=== PATIENT | female | born 1980 | race Caucasian/White ===

== ENCOUNTER 2020-11-03 13:20 | Emergency (ER) | payer OTHER ==
--- OUTSIDE RECORDS SUMMARY | 2020-11-03 13:29 | XMS REPORT | Continuity of Care Document ---
:1980 Author Organization [facility] t Address [address] [place] [address] Care Team Providers Name Role Phone Lab, Fam Pob I Attending Clinician Unavailable Doctor Unassigned, Name Attending Clinician Unavailable Winsome PEREZ, Duke Attending Clinician Unavailable Gabino PARK Attending Clinician Sohail PARK Attending Clinician Sohail PARK Admitting Clinician Problems This patient has no known problems. Allergies, Adverse Reactions, Alerts This patient has no known allergies or adverse reactions. Medications This patient has no known medications. Procedures This patient has no known procedures. Encounters Start End Encounter Admission Attending Care Care Encounter Source Date/Time Date/Time Type Type Clinicians Facility Department ID 2020-08-04 2020-08-04 Laboratory Lab, [facility] [id number] 17:18:59 17:38:59 Only Fam Pob I Health [id number] [place] [id number] Professio [phone] nal [address] 2020-02-15 2020-02-15 Laboratory Lab, [facility] [id number] 07:11:27 07:31:27 Only Fam Pob I Health [id number] [place] [id number] Professio [phone] nal [address] 2020-02-15 2020-02-15 Letter Doctor SANCHEZ [id number] 00:00:00 00:00:00 (Out) Unassigned, MARCOS [id number] [place] [facility] [id number] 2020-01-25 2020-01-25 Transition Daniel Schumacher [id number] 00:00:00 00:00:00 of Care [place] [id number] [place] [id number] 2020-01-21 2020-01-24 [facility] Nicko Lloyd [facility] [id number] 09:35:33 17:39:00 Encounter Melo Sauceda [id number] [place] [id number] [place] [id number] 2020-01-21 2020-01-21 Orders Doctor DANIEL [id number] 00:00:00 00:00:00 Only UnassignedMARCOS [id number] [place] [facility] [id number] Results This patient has no known results.
[2020-11-03] MEDS ORDERED: PROMETHAZINE INJ 25 MG/ML AMP ONE ×3 (16:57→19:55)
[2020-11-03] MEDS ORDERED: NA CHLORIDE 0.9% 1,000 ML ONE (16:59)
[2020-11-03] MEDS ORDERED: MORPHINE 4 MG/ML SYR ONE ×2 (16:59→17:57)
[2020-11-03 17:07] LABS: Urine Blood Negative (Negative); Urine Glucose Negative (Negative); Urine Protein Negative (Negative); Urine Specific Gravity 1.025 (1.005-1.030); Urine pH 5.5 (5.0-7.0)
[2020-11-03 17:25] LABS: Absolute Lymphocytes (CBC) 2.1 K/uL (0.7-4.9); Basophils % 1.1 % (0-1.3); Hematocrit 38.9 % (36.0-45.0); MPV 8.9 fL (7.6-11.3); RBC Red Blood Cell Count 4.47 M/uL (3.86-4.86)
--- NOTE | 2020-11-03 17:30 | RAD REPORT ---
EXAM DESCRIPTION: CTAbdomen Pelvis W Contrast - 11/03/2020 5:15 pm CLINICAL HISTORY: Abdominal pain. ABD PAIN COMPARISON: No comparisons TECHNIQUE: Biphasic CT imaging of the abdomen and pelvis was performed with 100 ml non-ionic IV cont rast. All CT scans are performed using dose optimization technique as appropriate and may include automated exposure control or mA/KV adjustment according to patient size. FINDINGS: Calcified granuloma is present in the medial left lung base.Postsurgical changes are prese nt about the stomach. The liver, spleen, pancreas, adrenal glands and kidneys are within normal limits. Cholecystectomy cli ps. No bowel obstruction, free air, free fluid or abscess. The appendix is normal. No evidence of signi ficant lymphadenopathy. No suspicious bony findings. IUD is present in the uterus. IMPRESSION: No acute intra-abdominal or pelvic finding.
[2020-11-03 17:35] LABS: Urine Bacteria <20 /HPF (<20); Urine Mucus 1+ /HPF (NONE SEEN); Urine RBC <5 /HPF (NONE SEEN)
[2020-11-03 17:41] LABS: ALT/SGPT 16 U/L (12-78); AST/SGOT 15 U/L (15-37); Albumin 3.5 g/dL (3.4-5.0); Alkaline Phosphatase 81 U/L (45-117); BUN Blood Urea Nitrogen 9 mg/dL (7-18); Bicarbonate 27 mmol/L (21-32); Bilirubin Direct < 0.1 mg/dL (0-0.2); Bilirubin Total 0.2 mg/dL (0.2-1.0); Glucose Level 89 mg/dL (74-106); Lipase 68 U/L (73-393); Potassium 3.9 mmol/L (3.5-5.1); Protein, Total 6.9 g/dL (6.4-8.2); Sodium Level 141 mmol/L (136-145)
[2020-11-03 18:14] LABS: SARS-COV-2 RT PCR NEGATIVE (NEGATIVE)
[2020-11-03] MEDS ORDERED: CEFTRIAXONE/SWI 1gm 1 GM/10 ML SYR ONE (18:27)
--- NOTE | 2020-11-03 19:09 | EDPHYS ---
Physician Documentation [facility] Name: Stacey Frederick Age: 40 yrs Sex: Female : 1980 Arrival Date: 11/03/2020 Time: 13:24 Bed 13 Private MD: ED Physician Mundo Palmer HPI: 11/03 18:20 This 40 yrs old Female presents to ER via Ambulatory with complaints of pm1 Abdominal Pain, Vomiting. 18:20 The patient presents with abdominal pain. Onset: The symptoms/episode began/occurred pm1 today. The symptoms do not radiate. Associated signs and symptoms: Pertinent positives: nausea, vomiting, and diarrhea. The symptoms are described as crampy. Modifying factors: The symptoms are alleviated by nothing, the symptoms are aggravated by nothing. Severity of pain: in the emergency department the pain is actually worse. Historical: - Allergies: 13:38 Bactrim; ll1 - PMHx: 13:38 Hypertension; ll1 - PSHx: 13:38 gastric sleeve-2016. Ankle FX; Cholecystectomy; ll1 - Immunization history:: Flu vaccine is not up to date. - Social history:: Smoking status: Patient denies any tobacco usage or history of. Smoking status: Reported history of juuling and/or vaping. ROS: 18:20 Constitutional: Negative for fever, chills, and weight loss, Cardiovascular: Negative pm1 for chest pain, palpitations, and edema, Respiratory: Negative for shortness of breath, cough, wheezing, and pleuritic chest pain. 18:20 Back: Negative for injury and pain, MS/Extremity: Negative for injury and deformity, Skin: Negative for injury, rash, and discoloration, Neuro: Negative for headache, weakness, numbness, tingling, and seizure. 18:20 Abdomen/GI: Positive for abdominal pain, nausea, vomiting, and diarrhea. 18:20 : Positive for burning with urination. Exam: 18:20 Constitutional: This is a well developed, well nourished patient who is awake, alert, pm1 and in no acute distress. Head/Face: Normocephalic, atraumatic. Cardiovascular: Regular rate and rhythm with a normal S1 and S2. No gallops, murmurs, or rubs. Normal PMI, no JVD. No pulse deficits. Respiratory: Lungs have equal breath sounds bilaterally, clear to auscultation and percussion. No rales, rhonchi or wheezes noted. No increased work of breathing, no retractions or nasal flaring. 18:20 Back: No spinal tenderness. No costovertebral tenderness. Full range of motion. Skin: Warm, dry with normal turgor. Normal color with no rashes, no lesions, and no evidence of cellulitis. MS/ Extremity: Pulses equal, no cyanosis. Neurovascular intact. Full, normal range of motion. 18:20 Abdomen/GI: Inspection: obese Palpation: soft, in all quadrants, mild abdominal tenderness, in the right upper quadrant. 18:20 Neuro: Exam negative for acute changes, Orientation: is normal, Mentation: is normal, Motor: is normal, moves all fours. Vital Signs: 13:34 BP 124 / 90; Pulse 86; Resp 18; Temp 98.8; Pulse Ox 96% ; Weight 108.86 kg; Height 5 ll1 ft. 7 in. (170.18 cm); Pain 8/10; 16:00 BP 122 / 69; Pulse 69; Resp 16; Pulse Ox 99% ; sv 17:33 BP 115 / 70; Pulse 68; Resp 16; Pulse Ox 100% ; sv 18:24 BP 113 / 70; Pulse 62; Resp 16; Pulse Ox 100% ; sv 13:34 Body Mass Index 37.59 (108.86 kg, 170.18 cm) ll1 MDM: 16:06 Patient medically screened. pm1 19:07 Data reviewed: vital signs. Data interpreted: Pulse oximetry: on room air is 100 %. pm1 Interpretation: normal. 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 19:31 ED course: Patient requesting pain medication before she goes home. Offered PO but she pm1 wants to get IVP. Instructed patient to follow up with GI. 11/03 16:19 Order name: Basic Metabolic Panel pm1 11/03 16:19 Order name: CBC with Diff pm1 11/03 16:19 Order name: Hepatic Function pm11/03 16:19 Order name: Lipase pm11/03 16:19 Order name: Urine Microscopic Only pm11/03 16:19 Order name: Flu pm11/03 16:19 Order name: COVID-19 : Document "Date of Symptom Onset" if Symptomatic. pm11/03 16:19 Order name: Basic Metabolic Panel; Complete Time: 17:42 EDMS 11/03 16:20 Order name: CBC with Automated Diff; Complete Time: 17:38 EDMS 11/03 16:20 Order name: Liver (Hepatic) Function; Complete Time: 17:42 EDMS 11/03 16:20 Order name: Lipase; Complete Time: 17:42 EDMS 11/03 16:20 Order name: Urine Microscopic Only; Complete Time: 17:38 EDMS 11/03 16:19 Order name: IV Saline Lock; Complete Time: 17:09 pm1 11/03 16:19 Order name: Labs collected and sent; Complete Time: 17:09 pm1 11/03 16:19 Order name: Urine Dipstick-Ancillary (obtain specimen); Complete Time: 17:09 pm1 11/03 16:19 Order name: CT Abd/Pelvis - IV Contrast Only; Complete Time: 17:38 pm1 11/03 17:08 Order name: Urine Dipstick-Ancillary; Complete Time: 17:38 EDMS 11/03 17:08 Order name: Urine --Ancillary (enter results) 11/03 17:36 Order name: Urine Culture EDSC 11/03 18:14 Order name: COVID-19/FLU A+B; Complete Time: 18:22 EDMS 11/03 16:19 Order name: Urine Test (obtain specimen); Complete Time: 17:09 pm1 Administered Medications: 16:50 Drug: Phenergan 12.5 mg Route: IVP; Site: left forearm; sv 17:45 Follow up: Response: No adverse reaction; No change in condition sv 16:50 Drug: NS 0.9% 1000 ml Route: IV; Rate: 1000 ml; Site: left forearm; sv 17:43 Follow up: Response: No adverse reaction; IV Status: Completed infusion; IV Intake: sv 1000ml 16:52 Drug: morphine 4 mg {Note: rass1.} Route: IVP; Site: left forearm; sv 17:43 Follow up: Response: No adverse reaction; No change in condition; Pain is unchanged, sv physician notified; RASS: Restless (+1) 17:43 Drug: Phenergan 12.5 mg Route: IVP; Site: left forearm; sv 18:14 Follow up: Response: No adverse reaction; No change in condition sv 17:45 Drug: morphine 4 mg {Note: rass1.} Route: IVP; Site: left forearm; sv 18:14 Follow up: Response: No adverse reaction; Pain is unchanged, physician notified; RASS: sv Restless (+1) 18:14 Drug: Rocephin (cefTRIAXone) 1 grams Route: IV; Rate: calculated rate; Site: left sv forearm; 18:16 Follow up: Response: No adverse reaction; IV Status: Completed infusion; IV Intake: 10mlsv 19:39 Drug: morphine 2 mg Route: IVP; Site: left forearm; sf 19:57 Follow up: Response: No adverse reaction sf 19:39 Drug: Phenergan 12.5 mg Route: IVP; Site: left forearm; sf 19:57 Follow up: Response: No adverse reaction Disposition: 11/04 08:21 Co-signature as Attending Physician, Mundo Palmer MD. rn Disposition: 11/03/20 19:08 Discharged to Home. Impression: Unspecified abdominal pain, Vomiting, Urinary tract infection, site not specified. - Condition is Stable. - Discharge Instructions: Abdominal Pain, Adult, Nausea and Vomiting, Adult, Urinary Tract Infection, Adult. - Prescriptions for Phenergan 25 mg Rectal Suppository - insert 1 suppository by RECTAL route every 6 hours As needed; 12 suppository. Tramadol 50 mg Oral Tablet - take 1 tablet by ORAL route every 8 hours as needed; 12 tablet. promethazine 25 mg Oral Tablet - take 1 tablet by ORAL route every 6 hours As needed; 20 tablet. - Work release form, Medication Reconciliation Form, Thank You Letter, Antibiotic Education, Prescription Opioid Use form. - Follow up: Emergency Department; When: As needed; Reason: Worsening of condition. Follow up: Private Physician; When: 2 - 3 days; Reason: Recheck today's complaints, Continuance of care, Re-evaluation by your physician. - Problem is new. - Symptoms have improved. Signatures: Dispatcher [employer] EDMS Lali Pearson RN RN Mundo Sultana MD MD rn Marinas, Patrick, SUE EXHAUST AND MUFFLER FITTER pm1 Faith Ramirez RN RN ll1 Gabriel Mckee RN RN sf Corrections: (The following items were deleted from the chart) 04 17:28 16:20 CORONAVIRUS ordered. [facility] EDSC 17:36 16:20 Influenza Screen (A ordered. [facility] EDSC 20:03 19:08 11/03/2020 19:08 Discharged to Home. Impression: Unspecified abdominal pain; sf Vomiting; Urinary tract infection, site not specified. Condition is Stable. Forms are Medication Reconciliation Form, Thank You Letter, Antibiotic Education, Prescription Opioid Use. Follow up: Emergency Department; When: As needed; Reason: Worsening of condition. Follow up: Private Physician; When: 2 - 3 days; Reason: Recheck today's complaints, Continuance of care, Re-evaluation by your physician. Problem is new. Symptoms have improved. pm1
--- NOTE | 2020-11-03 19:09 | ER ---
Nurse's Notes [facility] Name: Stacey Frederick Age: 40 yrs Sex: Female : 1980 Arrival Date: 11/03/2020 Time: 13:24 Bed 13 Private MD: Diagnosis: Unspecified abdominal pain;Vomiting;Urinary tract infection, site not specified Presentation: 11/03 13:34 Chief complaint: Patient states: Diffuse abd pain for 2 weeks, pain is worse for 2 ll1 days. N/V, and some low grade fever. Coronavirus screen: Client denies travel out of the [place] in the last 14 days. nausea, vomiting. Client presents with at least one sign or symptom that may indicate coronavirus-19. Standard/surgical mask placed on the client. Ebola Screen: Patient denies travel to an Ebola-affected area in the 21 days before illness onset. Initial Sepsis Screen: Does the patient meet any 2 criteria? No. Patient's initial sepsis screen is negative. Does the patient have a suspected source of infection? Yes: Acute abdominal pain. Risk Assessment: Do you want to hurt yourself or someone else? Patient reports no desire to harm self or others. Onset of symptoms was October 19, 2020. 13:34 Method Of Arrival: Ambulatory ll1 13:34 Acuity: ANDREAS 3 ll1 Historical: - Allergies: 13:38 Bactrim; ll1 - PMHx: 13:38 Hypertension; ll1 - PSHx: 13:38 gastric sleeve-2016. Ankle FX; Cholecystectomy; ll1 - Immunization history:: Flu vaccine is not up to date. - Social history:: Smoking status: Patient denies any tobacco usage or history of. Smoking status: Reported history of juuling and/or vaping. Screenin:12 Abuse screen: Denies threats or abuse. Denies injuries from another. Nutritional sv screening: No deficits noted. Tuberculosis screening: No symptoms or risk factors identified. Fall Risk None identified. Assessment: 16:50 General: Appears in no apparent distress. uncomfortable, well groomed, well developed, sv Behavior is calm, cooperative, appropriate for age. Pain: Complains of pain in abdomen Pain currently is 8 out of 10 on a pain scale. Quality of pain is described as crampy, Is continuous. Neuro: Level of Consciousness is awake, alert, obeys commands, Oriented to person, place, time, situation, Moves all extremities. Full function Gait is steady, Speech is normal. Respiratory: Airway is patent Respiratory effort is even, unlabored, Respiratory pattern is regular, symmetrical. GI: Abdomen is flat, Abd is soft X 4 quads Abdomen is tender to palpation X 4 quads. Reports nausea, vomiting. Derm: Skin is intact, Skin is pink, warm \\T\\ dry. Musculoskeletal: Range of motion: intact in all extremities. 17:40 Reassessment: Patient appears in no apparent distress at this time. No changes from sv previously documented assessment. Patient and/or family updated on plan of care and expected duration. Pain level reassessed. Patient is alert, oriented x 3, equal unlabored respirations, skin warm/dry/pink. Informed Mac BIOCHEMISTRY TECHNOLOGIST, medication order received. Patient states symptoms have not improved. 18:14 Reassessment: Patient appears in no apparent distress at this time. No changes from sv previously documented assessment. Patient and/or family updated on plan of care and expected duration. Pain level reassessed. Patient is alert, oriented x 3, equal unlabored respirations, skin warm/dry/pink. Patient states symptoms have not improved. Vital Signs: 13:34 BP 124 / 90; Pulse 86; Resp 18; Temp 98.8; Pulse Ox 96% ; Weight 108.86 kg; Height 5 ll1 ft. 7 in. (170.18 cm); Pain 8/10; 16:00 BP 122 / 69; Pulse 69; Resp 16; Pulse Ox 99% ; sv 17:33 BP 115 / 70; Pulse 68; Resp 16; Pulse Ox 100% ; sv 18:24 BP 113 / 70; Pulse 62; Resp 16; Pulse Ox 100% ; sv 13:34 Body Mass Index 37.59 (108.86 kg, 170.18 cm) ll1 ED Course: 13:24 Patient arrived in ED. mr 13:37 Triage completed. ll1 13:39 Arm band placed on Patient notified of wait time. ll1 16:05 Mac Mcrae NP is PHCP. pm1 16:05 Mundo Palmer MD is Attending Physician. pm1 16:12 Lali Pearson, ANA is Primary Nurse. sv 16:12 Patient has correct armband on for positive identification. Bed in low position. Call sv light in reach. Pulse ox on. NIBP on. Door closed. Head of bed elevated. 16:50 COVID swab sent to lab. Flu and/or RSV swab sent to lab. Inserted saline lock: 20 gauge sv in left forearm, using aseptic technique. Blood collected. Flushed left forearm with 2 ml normal saline. 17:09 Flu Sent. sv 17:09 COVID-19 : Document "Date of Symptom Onset" if Symptomatic. Sent. sv 17:09 Urine Microscopic Only Sent. sv 17:09 Lipase Sent. sv 17:09 Hepatic Function Sent. sv 17:09 CBC with Diff Sent. sv 17:09 Basic Metabolic Panel Sent. sv 17:15 CT Abd/Pelvis - IV Contrast Only In Process Unspecified. EDMS 19:06 Primary Nurse role handed off by Lali Pearson RN sf 19:06 Gabriel Mckee, ANA is Primary Nurse. sf 19:10 Report given to Gabriel PEREZ. sv 20:02 No provider procedures requiring assistance completed. IV discontinued, intact, sf bleeding controlled, No redness/swelling at site. Pressure dressing applied. Administered Medications: 16:50 Drug: Phenergan 12.5 mg Route: IVP; Site: left forearm; sv 17:45 Follow up: Response: No adverse reaction; No change in condition sv 16:50 Drug: NS 0.9% 1000 ml Route: IV; Rate: 1000 ml; Site: left forearm; sv 17:43 Follow up: Response: No adverse reaction; IV Status: Completed infusion; IV Intake: sv 1000ml 16:52 Drug: morphine 4 mg {Note: rass1.} Route: IVP; Site: left forearm; sv 17:43 Follow up: Response: No adverse reaction; No change in condition; Pain is unchanged, sv physician notified; RASS: Restless (+1) 17:43 Drug: Phenergan 12.5 mg Route: IVP; Site: left forearm; sv 18:14 Follow up: Response: No adverse reaction; No change in condition sv 17:45 Drug: morphine 4 mg {Note: rass1.} Route: IVP; Site: left forearm; sv 18:14 Follow up: Response: No adverse reaction; Pain is unchanged, physician notified; RASS: sv Restless (+1) 18:14 Drug: Rocephin (cefTRIAXone) 1 grams Route: IV; Rate: calculated rate; Site: left sv forearm; 18:16 Follow up: Response: No adverse reaction; IV Status: Completed infusion; IV Intake: 10mlsv 19:39 Drug: morphine 2 mg Route: IVP; Site: left forearm; sf 19:57 Follow up: Response: No adverse reaction sf 19:39 Drug: Phenergan 12.5 mg Route: IVP; Site: left forearm; sf 19:57 Follow up: Response: No adverse reaction sf Intake: 17:43 IV: 1000ml; Total: 1000ml. sv 18:16 IV: 10ml; Total: 1010ml. sv Outcome: 19:08 Discharge ordered by MD. pm1 20:02 Discharged to home ambulatory. sf 20:02 Condition: stable 20:02 Discharge instructions given to patient, Instructed on discharge instructions, follow up and referral plans. medication usage, Demonstrated understanding of instructions, follow-up care, medications, Prescriptions given X 3. 20:03 Patient left the ED. sf Signatures: Dispatcher [employer] EDLali Amos RN RN Deneen Frost Patrick, BIOCHEMISTRY TECHNOLOGIST BIOCHEMISTRY TECHNOLOGIST pm1 Faith Ramirez RN RN ll1 Gabriel Mckee RN RN sf
[2020-11-03 19:49] LABS: Urine Specific Gravity/Preg 1.025 (1.005-1.030)
[2020-11-03] MEDS ORDERED: MORPHINE 2 MG/ML SYR ONE (19:55)
[2020-11-03 20:37] VITALS: TEMP 98.8
[2020-11-03 20:39] VITALS: O2SAT 100
[2020-11-03 20:41] VITALS: BP 113/70
== END 2020-11-03 20:03 | disposition home or self-care (01) ==
LOC: ER 13:20
DX: N39.0 Urinary tract infection, site not specified (principal); Z20.822 Contact with and (suspected) exposure to COVID-19; Z98.84 Bariatric surgery status; F17.290 Nicotine dependence, other tobacco product, uncomplicated; I10 Essential (primary) hypertension
CPT/HCPCS: 96361; 87088; 85025; 87086; 80048; 36415; 81025; 82565; 80076; 83690; 0240U; 74177; 96375; 96374; 99284; Q9967; J2550 ×3; J2270; J0696; J7030; 81003; 81015

== ENCOUNTER 2023-03-18 11:38 | Emergency (ER) | payer OTHER ==
--- OUTSIDE RECORDS SUMMARY | 2023-03-18 11:48 | XMS REPORT | Continuity of Care Document ---
:1980 Author Organization [facility] t Address [address] [place] [address] [address] [place] [address] Care Team Providers Name Role Phone YAW NEALAN Primary Care Physician Unavailable GERALDO MEREDITH Attending Clinician Unavailable CLINT Attending Clinician Unavailable Nicole West MA Attending Clinician Unavailable Huber PARK, Finn Gaffney Attending Clinician Bob Asher MD Attending Clinician Parker CAP INSPECTOR, Claudia Attending Clinician Pj Rendon MD Attending Clinician Deena Hernandez RN Attending Clinician Unavailable Only, Ang Db Test Attending Clinician Unavailable Renny Newman Attending Clinician RENNY BOYCE Attending Clinician Unavailable RUDDY CHO Attending Clinician Unavailable JHON PICKERING Attending Clinician Unavailable Jhon Pickering DO Attending Clinician Erin Barroso RN Attending Clinician Unavailable Maxwell TRIPP Attending Clinician Unavailable Maxwell Gupta Attending Clinician JON PEOPLES Attending Clinician Unavailable Talon CAP INSPECTORJon Lizama Attending Clinician Unknown, Attending Attending Clinician Unavailable UNKNOWN, ATTENDING Attending Clinician Unavailable Stacey Reveles MD Attending Clinician Geraldo Meredith MD Attending Clinician Only, Adc Test Attending Clinician Unavailable Nicko Lloyd MD Attending Clinician VANESSA RAYO Attending Clinician Unavailable Pob, Adc Lab Main Attending Clinician Unavailable Vanessa Rayo MD Attending Clinician Doctor Unassigned, [place] Attending Clinician Unavailable FRANCESCO DICK Attending Clinician Unavailable Sharri Sanchez DO Attending Clinician Lab, Adc Fam Pob I Attending Clinician Unavailable Winsome PEREZ, Vega Wall Attending Clinician Unavailable Sohail PARK, Melo Attending Clinician MELO SAUCEDA Attending Clinician Unavailable GERALDO MEREDITH Admitting Clinician Unavailable CLINT Admitting Clinician Unavailable FINN NGO Admitting Clinician Unavailable RUDDY CHO Admitting Clinician Unavailable SUE MONIQUE Admitting Clinician Unavailable JHON PICKERING Admitting Clinician Unavailable Geraldo Meredith MD Admitting Clinician Melo Sauceda MD Admitting Clinician MELO SAUCEDA Admitting Clinician Unavailable Payers Payer Name Policy Type Policy Number Effective Date Expiration Date S josias [facility] [id number] 2020 PPO 00:00:00 [facility] [id number] [facility] [id number] 2016 00:00:00 Problems Condition Condition Condition Status Onset Resolution Last Treating Co mments Source Name Details Category Date Date Treatment Clinician Date Acute Acute Problem Active [place] sinusitis Sinusitis 8-16 Comm uni 00:00: Hospita Clinics Acute Acute Problem Active [place] maxillary Maxillary 8-16 Comm uni sinusitis Sinusitis 00:00: [facility] Headache Headache Problem Active [place] 8-16 Communi 00:00: [facility] Nausea Nausea Problem Active [place] 8-16 Communi 00:00: Hospita l Clinics Morbid Morbid Disease Active 2021-08 [facility] obesity obesity 0-21 st 00:00: Hospita 00 l Gastroesop Gastroesop Disease Active 2021-08 M ethodi hageal hageal 0-21 st reflux reflux 00:00: Hospita disease, disease, 00 l unspecifie unspecifie d whether d whether esophagiti esophagiti s present s present Gastroesop Gastroesop Disease Active Overview : Methodi hageal hageal [address] reflux reflux 00:00: g of this Hospita disease disease 00 note l might be different from the original. Added automatic ally from request for surgery [id number] History of History of Disease Active Overview : [facility]i sleeve sleeve 04-[address] gastrectom gastrectom 00:00: g of this Hospita y y 00 note l might be different from the original. 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 00:00: Hospit a on left on left 00 l Bilateral Bilateral Disease Active Met hodi rotator rotator 4 st cuff cuff 00:00: Hospita syndrome syndrome 00 l Elbow Elbow Disease Active [facility] mass, left mass, left 4 st 00:00: Hospita 00 l Undifferen Undifferen Disease Active U nivers tiated tiated 6- [place] abdominal abdominal [place] pain 00 [facility] [place] Obesity Obesity Disease Active Univers (BMI (BMI 6-22 ity of 30-39.9) 30-39.9) 00:00: Medical Branch Allergies, Adverse Reactions, Alerts Allergy Allergy Status Severity Reaction(s) Onset Inactive Treating Comm ents Source Name Type Date Date Clinician Morphine Propensi Active GI SEVERE Method i ty to Intolerance 6- N/V st adverse 00:00: Hospita reaction 00 l s to drug MORPHINE DRUG Active N/V Univers INGREDI 6- ity of 00:00: Medical Branch Morphine Propensi Active Nausea Univer s ty to and/or 6 ity of adverse Vomiting 00:00: [place] reaction 00 Medical s Branch Sulfa Propensi Active Other (See 2019-0 Mouth Meth sheba (Sulfona ty to Comments) 2-12 sores/bli st mide adverse 00:00: [facility] Hospita Antibiot reaction 00 l ics) s to drug SULFA Drug Active Rash 2018- Univers (SULFONA Class 2-12 ity of MIDE 00:00: [place] ANTIBIOT 00 Medical ICS) Branch Sulfa Propensi Active Rash 2018- Univers (Sulfona ty to 2-12 ity of mide adverse 00:00: [place] Antibiot reaction 00 Medica l ics) s Branch Sulfa Propensi Active Rash 2018- Univers (Sulfona ty to 2-12 ity of mide adverse 00:00: [place] Antibiot reaction 00 Medica l ics) s Branch Clarithr Propensi Active Other (See 2008- blisters Methodi omycin ty to Comments) 7-[address] adverse 00:00: mouth Hospita reaction 00 l s to drug SULFA Allergy Active [place] (SULFONA to Communi MIDE substanc ty ANTIBIOT e Hospita ICS) l Clinics Family History Family Member Diagnosis Comments Start Date Stop Date Source Natural father Heart attack [facility] Natural father Heart disease [facility] Maternal grandmother Pancreatic cancer [facility] Natural mother Alcohol abuse [facility] mother Arthritis [facility] mother COPD [facility] mother Cervical cancer [facility] Natural mother Depression [facility] Natural mother Hyperlipidemia [facility] Natural mother Hypotension [facility] Social History Social Habit Start Date Stop Date Quantity Comments Source Gender identity 2020-12-04 Identifies as Method ist 11:29:29 female gender Hospital (finding) Sexual orientation 2020-12-04 Heterosexual Meth odist 11:29:29 (finding) Hospital History of tobacco Smokes tobacco [facility] use daily Hospital Alcohol intake 2022-05-24 2022-05-24 Ex-drinker [facility] 00:00:00 00:00:00 (finding) Hospital History of Social 2022-05-24 2022-05-[address] function 00:00:00 00:00:00 Hospital Tobacco use and 2022-05-13 2022-05-13 Smokeless tobacco Me thodist exposure 00:00:00 00:00:00 non-user Hospital Alcohol Comment 2022-05-13 2022-05-13 I drink on the [facility]o dist 00:00:00 00:00:00 weekends 12 drinks Hospit al Tobacco Comment 2022-04-21 2022-04-21 Smoke cigarettes Met luciana 00:00:00 00:00:00 for 10 years- /2 Hospita l pack per day Exposure to 2022-02-06 2022-02-16 [facility] 11:35:00 [facility] Sex Assigned At [birth year] Univers y of 00:00:00 00:00:00 [facility] Smoking Status Start Date Stop Date Source Unknown if ever smoked [facility] Former Smoker [facility] Smokes tobacco daily 2022-05-13 00:00:00 [facility] Medications Ordered Filled Start Stop Current Ordering Indication Dosage Frequency Signature Comments Components Source Medication Medication Date Date Medication? Clinician (SIG) Name Name ketorolac ketorolac No ketorolac [place] 30 mg/mL (1 30 mg/mL (1 8-16 30 mg/mL Communi mL) mL) 11:12: (1 mL) ty injection injection 00 injection Hospita solutionInj solutionInj solutionIn l ect 1 mL by ect 1 mL by ject 1 mL Clinics intramuscul intramuscul by ar route. ar route. intramuscu lar route. triamcinolo triamcinolo No triamcinol [place] ne ne 6-20 one Communi acetonide acetonide 11:01: acetonide ty 40 mg/mL 40 mg/mL 26 40 mg/mL Hos harish suspension suspension suspension l for for for Clinics injectionTa injectionTa injectionT ke 40 mg by ke 40 mg by delgado 40 mg injection injection by route. route. injection route. promethazin 2021-08 25mg Q6H Take 25 mg Methodi e 1-17 11-[address] (PHENERGAN) 11:41: 00:00 every 6 Ho spita 25 MG 58 :00 (six) l tablet hours as needed for nausea or vomiting. clonAZEPAM 2021-08 Yes .5mg QD Take 0.5 Met ángeli (KlonoPIN) 1-[address] 0.5 MG 11:09: mouth Hospita tablet 08 nightly as l needed (insomnia) . omeprazole 2021-08 Yes 40mg Q.5D Take 1 Metho di (PriLOSEC) 1-[address] 40 MG 11:09: (40 mg Hospita capsule 08 total) by l mouth 2 (two) times a day. losartan 2021-08 Yes 100mg QD Take 100 Meth sheba (COZAAR) 1-[address] 100 MG 11:09: mouth Hospita tablet 08 daily. l montelukast 2021-08 Yes 10mg QD Take 10 mg Methodi (SINGULAIR) 1-[address] 10 mg 11:09: daily. Hospita tablet 08 l MELATONIN 2021-08 Yes QD Take by Metho di ORAL 1-[address] 11:09: nightly. Hospita 08 Gummy l ondansetron 2021-08- No 8mg Q8H Take 1 Met hodi ODT 1-17 12-08 tablet (8 st (ZOFRAN-ODT 00:00: 05:59 mg total) Hospita ) 8 MG 00 :00 by mouth l disintegrat every 8 ing tablet (eight) hours as needed for nausea or vomiting for up to 20 days. promethazin 2021-08 No 25mg Q6H Take 1 Met hodi e 1-17 12-08 tablet (25 st (PHENERGAN) 00:00: 05:59 mg total) Hospita 25 MG 00 :00 by mouth l tablet every 6 (six) hours as needed for nausea or vomiting for up to 20 days. promethazin 2021-08 Yes 12.5mg Q6H Take 0.5 Methodi e 0-[address] (PHENERGAN) 00:00: (12.5 mg Ho spita 25 MG 00 total) by l tablet mouth every 6 (six) hours as needed for nausea or vomiting for up to 14 doses. simethicone 2021-08 Yes 80mg Q.25D Take 1.2 M ethodi (MYLICON) 0-24 mL ([address] 40 mg/0.6 00:00: total) by Hos harish mL drops 00 mouth 4 l (four) times a day as needed for flatulence . multivitami 2021-08- No 5mL QD Take 5 mL Methodi n liquid 0-24 11-[address] 00:00: 05:59 daily for Hospita 00 :00 30 days. l enoxaparin 2021-08 No 40mg QD Inject 0.4 Methodi (LOVENOX) 0-24 11-08 mL ([address] 40 mg/0.4 00:00: 05:59 total) Hospi ta mL syringe 00 :00 under the l skin daily for 14 days. docusate 2021-08 No 100mg Q.5D Take 1 Metho di sodium 0-24 11-[address] (Colace) 00:00: 05:59 (100 mg Hospi ta 100 MG 00 :00 total) by l capsule mouth 2 (two) times a day for 14 days. methocarbam 2021-08 No 750mg Q.[id number] Take 1 Methodi oL 0-24 11- [id number] tablet st (Robaxin-75 00:00: 04:59 3D (750 mg Ho spita 0) 750 MG 00 :00 total) by l tablet mouth 3 (three) times a day as needed for muscle spasms for up to 7 days. acetaminoph 2021-08 No 500mg Q8H Take 1 Me thodi en (Tylenol 0-24 10-[address] Extra 00:00: 04:59 (500 mg Hospita Strength) 00 :00 total) by l 500 MG mouth tablet every 8 (eight) hours for 5 days. traMADoL 2021-08 No [id number] 50mg Q6H Take 1 Metho di (Ultram) 50 0-24 10-30 tablet (50 s t mg tablet 00:00: 04:59 mg total) Ho spita 00 :00 by mouth l every 6 (six) hours as needed for moderate pain for up to 5 days .acute pain. nut.tx.comp 2021-08 No 1{bottl Q.5D Take 1 Methodi . immune 0-16 10-24 e} Bottle by st syst,reg 00:00: 00:00 mouth 2 Hosp luis (Impact 00 :00 (two) l Advanced times a Recovery) day for 5 0.1 days. gram-1.12 kcal/mL liquid topiramate Yes 25mg QD Take 1 Metho di (TOPAMAX) 9-20 tablet (25 st 25 MG 00:00: mg total) Hospita tablet 00 by mouth l nightly. ondansetron 2021- No 8mg Q8H Take 1 Met hodi ODT 03-17 11-17 tablet (8 st (ZOFRAN-ODT 00:00: 00:00 mg total) Hospita ) 8 MG 00 :00 by mouth l disintegrat every 8 ing tablet (eight) hours as needed. methocarbam 2021- No 500mg Q.[id number] Take 1 Methodi oL 8-17 10-[id number] (ROBAXIN) 00:00: 00:00 3D (500 mg Hosp luis 500 MG 00 :00 total) by l tablet mouth 3 (three) times a day as needed. amitriptyli 0 Yes 50mg QD Take 50 mg Methodi ne (ELAVIL) 5-[address] 50 MG 00:00: nightly. Hospita tablet 00 l naproxen 2021-0 Yes [id number] 550mg Take 1 U nivers sodium 4-11 tablet by ity of (ANAPROX 00:00: mouth 2 [place] DS) 550 mg 00 (two) Medical tablet times Branch daily with meals. methylPREDN 2021-0 Yes [id number] Take by [facility] ISolone 4-11 mouth ity of (MEDROL, 00:00: SEE-INSTRU John as RANDY,) 4 mg 00 CTIONS. Medica l tablets follow Branch package directions naproxen 2021-0 Yes [id number] 550mg Take 1 U nivers sodium 4-11 tablet by ity of (ANAPROX 00:00: mouth 2 [place] DS) 550 mg 00 (two) Medical tablet times Branch daily with meals. methylPREDN 2021-0 Yes [id number] Take by [facility] ISolone 4-11 mouth ity of (MEDROL, 00:00: SEE-INSTRU John as RANDY,) 4 mg 00 CTIONS. Medica l tablets follow Branch package directions naproxen 2021-0 Yes [id number] 550mg Take 1 U nivers sodium 4-11 tablet by ity of (ANAPROX 00:00: mouth 2 [place] DS) 550 mg 00 (two) Medical tablet times Branch daily with meals. methylPREDN 2021-0 Yes [id number] Take by Univers ISolone 4-11 mouth ity of (MEDROL, 00:00: SEE-INSTRU John as RANDY,) 4 mg 00 CTIONS. Medica l tablets follow Branch package directions methocarbam 2021- No [id number] 500mg Take 1 Univers oL 500 mg 11-09-17 tablet by ity of tablet 00:00: 04:59 mouth 3 [place] 00 :00 (three) Medical times Branch daily for 5 days. ibuprofen 0 Yes [id number] 600mg Take 1 Univers 600 mg 2-18 tablet by ity of tablet 00:00: mouth [place] 00 every 6 Medical (six) Branch hours as needed for Pain (scale 4-6). ibuprofen 0 Yes [id number] 600mg Take 1 Univers 600 mg 2-18 tablet by ity of tablet 00:00: mouth [place] 00 every 6 Medical (six) Branch hours as needed for Pain (scale 4-6). ibuprofen 0 Yes [id number] 600mg Take 1 Univers 600 mg 2-18 tablet by ity of tablet 00:00: mouth [place] 00 every 6 Medical (six) Branch hours as needed for Pain (scale 4-6). ibuprofen 0 Yes [id number] 600mg Take 1 Univers 600 mg 2-18 tablet by ity of tablet 00:00: mouth [place] 00 every 6 Medical (six) Branch hours as needed for Pain (scale 4-6). ibuprofen 0 Yes [id number] 600mg Take 1 Univers 600 mg 2-18 tablet by ity of tablet 00:00: mouth [place] 00 every 6 Medical (six) Branch hours as needed for Pain (scale 4-6). promethazin 2021- No [id number] 5mL Take 5 mL Univers e-codeine -18 - by mouth 4 ity of 6.25-10 00:00: 05:59 (four) [place] mg/5 mL 00 :00 times Medical syrup daily as Branch needed for Cough for up to 7 days. Indication s: acute pain, cough promethazin 2021-0 2021- No [id number] 5mL Take 5 mL Univers e-codeine 2-18 - by mouth 4 ity of 6.25-10 00:00: 05:59 (four) [place] mg/5 mL 00 :00 times Medical syrup daily as Branch needed for Cough for up to 7 days. Indication s: acute pain, cough ciprofloxac 2020-08 Yes ciprofloxa Univers in HCl 500 2-30 lou 500 mg ity of mg tablet 12:38: tablet [address] codeine-gua 2020-08 Yes Cheratussi Univers ifenesin 2-30 n AC 10 ity of (CHERATUSSI 12:38: mg-100 [place] N AC) 15 mg/5 mL Medical 10-100 mg/5 oral Branch mL oral liquid solution citalopram 2020-08 Yes citalopram U nivers 40 mg 2-30 40 mg ity of tablet 12:38: tablet [address] methocarbam 2020-08 Yes methocarba Univers oL 750 mg 2-30 mol 750 mg ity of tablet 12:38: tablet [address] predniSONE 2020-08 Yes prednisone U nivers 20 mg 2-30 20 mg ity of tablet 12:38: tablet [address] ciprofloxac 2020-08 Yes ciprofloxa Univers in HCl 500 2-30 lou 500 mg ity of mg tablet 12:38: tablet [address] codeine-gua 2020-08 Yes Cheratussi Univers ifenesin 2-30 n AC 10 ity of (CHERATUSSI 12:38: mg-100 [place] N AC) 15 mg/5 mL Medical 10-100 mg/5 oral Branch mL oral liquid solution citalopram 2020-08 Yes citalopram U nivers 40 mg 2-30 40 mg ity of tablet 12:38: tablet [address] methocarbam 2020-08 Yes methocarba Univers oL 750 mg 2-30 mol 750 mg ity of tablet 12:38: tablet [address] predniSONE 2020-08 Yes prednisone U nivers 20 mg 2-30 20 mg ity of tablet 12:38: tablet [address] ciprofloxac 2020-08 Yes ciprofloxa Univers in HCl 500 2-30 lou 500 mg ity of mg tablet 12:38: tablet [address] codeine-gua 2020-08 Yes Cheratussi Univers ifenesin 2-30 n AC 10 ity of (CHERATUSSI 12:38: mg-100 [place] N AC) 15 mg/5 mL Medical 10-100 mg/5 oral Branch mL oral liquid solution citalopram 2020-08 Yes citalopram U nivers 40 mg 2-30 40 mg ity of tablet 12:38: tablet [address] methocarbam 2020-08 Yes methocarba Univers oL 750 mg 2-30 mol 750 mg ity of tablet 12:38: tablet [address] predniSONE 2020-08 Yes prednisone U nivers 20 mg 2-30 20 mg ity of tablet 12:38: tablet [address] ciprofloxac 2020-08 Yes ciprofloxa Univers in HCl 500 2-30 lou 500 mg ity of mg tablet 12:38: tablet [address] codeine-gua 2020-08 Yes Cheratussi Univers ifenesin 2-30 n AC 10 ity of (CHERATUSSI 12:38: mg-100 [place] N AC) 15 mg/5 mL Medical 10-100 mg/5 oral Branch mL oral liquid solution citalopram 2020-08 Yes citalopram U nivers 40 mg 2-30 40 mg ity of tablet 12:38: tablet [address] methocarbam 2020-08 Yes methocarba Univers oL 750 mg 2-30 mol 750 mg ity of tablet 12:38: tablet [address] predniSONE 2020-08 Yes prednisone U nivers 20 mg 2-30 20 mg ity of tablet 12:38: tablet [address] ciprofloxac 2020-08 Yes ciprofloxa Univers in HCl 500 2-30 lou 500 mg ity of mg tablet 12:38: tablet [address] codeine-gua 2020-08 Yes Cheratussi Univers ifenesin 2-30 n AC 10 ity of (CHERATUSSI 12:38: mg-100 [place] N AC) 15 mg/5 mL Medical 10-100 mg/5 oral Branch mL oral liquid solution citalopram 2020-08 Yes citalopram U nivers 40 mg 2-30 40 mg ity of tablet 12:38: tablet [address] methocarbam 2020-08 Yes methocarba Univers oL 750 mg 2-30 mol 750 mg ity of tablet 12:38: tablet [address] predniSONE 2020-08 Yes prednisone U nivers 20 mg 2-30 20 mg ity of tablet 12:38: tablet [address] ciprofloxac 2020-08 Yes ciprofloxa Univers in HCl 500 2-30 lou 500 mg ity of mg tablet 12:38: tablet [address] codeine-gua 2020-08 Yes Cheratussi Univers ifenesin 2-30 n AC 10 ity of (CHERATUSSI 12:38: mg-100 [place] N AC) 15 mg/5 mL Medical 10-100 mg/5 oral Branch mL oral liquid solution citalopram 2020-08 Yes citalopram U nivers 40 mg 2-30 40 mg ity of tablet 12:38: tablet [address] methocarbam 2020-08 Yes methocarba Univers oL 750 mg 2-30 mol 750 mg ity of tablet 12:38: tablet [address] predniSONE 2020-08 Yes prednisone U nivers 20 mg 2-30 20 mg ity of tablet 12:38: tablet [address] azithromyci 2020-08 Yes azithromyc Univers n 250 mg 2-30 in 250 mg ity of tablet 12:38: tablet [address] azithromyci 2020-08 Yes azithromyc Univers n 250 mg 2-30 in 250 mg ity of tablet 12:38: tablet [address] azithromyci 2020-08 Yes azithromyc Univers n 250 mg 2-30 in 250 mg ity of tablet 12:38: tablet [address] azithromyci 2020-08 Yes azithromyc Univers n 250 mg 2-30 in 250 mg ity of tablet 12:38: tablet [address] azithromyci 2020-08 Yes azithromyc Univers n 250 mg 2-30 in 250 mg ity of tablet 12:38: tablet [address] azithromyci 2020-08 Yes azithromyc Univers n 250 mg 2-30 in 250 mg ity of tablet 12:38: tablet [address] codeine-gua 2020-082- No [id number] 5mL Take 5 mL Univers ifenesin 2-30 -07 by mouth ity of 10-100 mg/5 00:00: 05:59 every 6 [place] mL oral 00 :00 (six) Medical solution hours as Branch needed for Cough for up to 7 days. Indication s: acute pain acyclovir 2020-08 Yes TAKE 1 Univer s 200 mg 2-23 CAPSULE BY ity of capsule 00:00: MOUTH 5 [place] 00 TIMES A Medical DAY FOR 5 Branch DAYS acyclovir 2020-08 Yes TAKE 1 Univer s 200 mg 2-23 CAPSULE BY ity of capsule 00:00: MOUTH 5 [place] 00 TIMES A Medical DAY FOR 5 Branch DAYS acyclovir 2020-08 Yes TAKE 1 Univer s 200 mg 2-23 CAPSULE BY ity of capsule 00:00: MOUTH 5 [place] 00 TIMES A Medical DAY FOR 5 Branch DAYS acyclovir 2020-08 Yes TAKE 1 Univer s 200 mg 2-23 CAPSULE BY ity of capsule 00:00: MOUTH 5 [place] 00 TIMES A Medical DAY FOR 5 Branch DAYS acyclovir 2020-08 Yes TAKE 1 Univer s 200 mg 2-23 CAPSULE BY ity of capsule 00:00: MOUTH 5 [place] 00 TIMES A Medical DAY FOR 5 Branch DAYS acyclovir 2020-08 Yes TAKE 1 Univer s 200 mg 2-23 CAPSULE BY ity of capsule 00:00: MOUTH 5 [place] 00 TIMES A Medical DAY FOR 5 Branch DAYS meloxicam 2020-08 Yes 15mg Take 15 mg Un wayne 15 mg 1-19 by mouth ity of tablet 00:00: every [place] 00 morning. Medical Branch meloxicam 2020-08 Yes 15mg Take 15 mg Un way[place] 15 mg 1-19 by mouth ity of tablet 00:00: every [place] 00 morning. Medical Branch meloxicam 2020-08 Yes 15mg Take 15 mg Un way[place] 15 mg 1-19 by mouth ity of tablet 00:00: every [place] 00 morning. Medical Branch meloxicam 2020-08 Yes 15mg Take 15 mg Un [place] 15 mg 1-19 by mouth ity of tablet 00:00: every [place] 00 morning. Medical Branch meloxicam 2020-08 Yes 15mg Take 15 mg Un [place] 15 mg 1-19 by mouth ity of tablet 00:00: every [place] 00 morning. Medical Branch meloxicam 2020-08 Yes 15mg Take 15 mg Un [place] 15 mg 1-19 by mouth ity of tablet 00:00: every [place] 00 morning. Medical Branch amoxicillin 2020-08 Yes 1{tbl} Take 1 Un wayne -clavulanat 1-04 tablet by ity of e 875-125 00:00: mouth 2 [place] mg per 00 (two) Medical tablet times Branch daily. fluconazole 2020-08 Yes 100mg Take 100 U nivers 100 mg 1-04 mg by ity of tablet 00:00: mouth [place] 00 daily. Medical Branch neomycin-po 2020-08 Yes SHAKE Unive rs lymyxin-hyd 1-04 LIQUID AND it y of rocortisone 00:00: INSTILL 4 [place] 3.5-10,000- 00 DROPS TO Medi rama 1 AFFECTED Branch mg/mL-unit/ EAR THREE mL-% otic TIMES susp DAILY amoxicillin 2020-08 Yes 1{tbl} Take 1 Un wayne -clavulanat 1-04 tablet by ity of e 875-125 00:00: mouth 2 [place] mg per 00 (two) Medical tablet times Branch daily. fluconazole 2020-08 Yes 100mg Take 100 U nivers 100 mg 1-04 mg by ity of tablet 00:00: mouth [place] 00 daily. Medical Branch neomycin-po 2020-08 Yes SHAKE Unive rs lymyxin-hyd 1-04 LIQUID AND it y of rocortisone 00:00: INSTILL 4 [place] 3.5-10,000- 00 DROPS TO Medi rama 1 AFFECTED Branch mg/mL-unit/ EAR THREE mL-% otic TIMES susp DAILY amoxicillin 2020-08 Yes 1{tbl} Take 1 Un wayne -clavulanat 1-04 tablet by ity of e 875-125 00:00: mouth 2 [place] mg per 00 (two) Medical tablet times Branch daily. fluconazole 2020-08 Yes 100mg Take 100 U nivers 100 mg 1-04 mg by ity of tablet 00:00: mouth [place] 00 daily. Medical Branch neomycin-po 2020-08 Yes SHAKE Unive rs lymyxin-hyd 1-04 LIQUID AND it y of rocortisone 00:00: INSTILL 4 [place] 3.5-10,000- 00 DROPS TO Medi rama 1 AFFECTED Branch mg/mL-unit/ EAR THREE mL-% otic TIMES susp DAILY amoxicillin 2020-08 Yes 1{tbl} Take 1 Un wayne -clavulanat 1-04 tablet by ity of e 875-125 00:00: mouth 2 [place] mg per 00 (two) Medical tablet times Branch daily. fluconazole 2020-08 Yes 100mg Take 100 U nivers 100 mg 1-04 mg by ity of tablet 00:00: mouth [place] 00 daily. Medical Branch neomycin-po 2020-08 Yes SHAKE Unive rs lymyxin-hyd 1-04 LIQUID AND it y of rocortisone 00:00: INSTILL 4 [place] 3.5-10,000- 00 DROPS TO Medi rama 1 AFFECTED Branch mg/mL-unit/ EAR THREE mL-% otic TIMES susp DAILY amoxicillin 2020-08 Yes 1{tbl} Take 1 Un wayne -clavulanat 1-04 tablet by ity of e 875-125 00:00: mouth 2 [place] mg per 00 (two) Medical tablet times Branch daily. fluconazole 2020-08 Yes 100mg Take 100 U nivers 100 mg 1-04 mg by ity of tablet 00:00: mouth [place] 00 daily. Medical Branch neomycin-po 2020-08 Yes SHAKE Unive rs lymyxin-hyd 1-04 LIQUID AND it y of rocortisone 00:00: INSTILL 4 [place] 3.5-10,000- 00 DROPS TO Medi rama 1 AFFECTED Branch mg/mL-unit/ EAR THREE mL-% otic TIMES susp DAILY amoxicillin 2020-08 Yes 1{tbl} Take 1 Un way[place] -clavulanat 1-04 tablet by ity of e 875-125 00:00: mouth 2 [place] mg per 00 (two) Medical tablet times Branch daily. fluconazole 2020-08 Yes 100mg Take 100 U nivers 100 mg 1-04 mg by ity of tablet 00:00: mouth [place] 00 daily. Medical Branch neomycin-po 2020-08 Yes SHAKE Unive rs lymyxin-hyd 1-04 LIQUID AND it y of rocortisone 00:00: INSTILL 4 [place] 3.5-10,000- 00 DROPS TO Medi rama 1 AFFECTED Branch mg/mL-unit/ EAR THREE mL-% otic TIMES susp DAILY traZODone Yes 50mg Take [address] 50 mg 9-08 by mouth ity of tablet 16:54: at [place] 38 bedtime. Medical Branch omeprazole Yes 40mg Take 40 mg U nivers 40 mg 9-08 by mouth. ity of capsule 16:54: [place] 38 Medical Branch traZODone Yes 50mg Take 50 mg [address] 50 mg 9-08 by mouth ity of tablet 16:54: at [place] [address] bedtime. Medical Branch omeprazole 0 Yes 40mg Take 40 mg U nivers 40 mg 9-08 by mouth. ity of capsule 16:54: [address] Branch losartan Yes 50mg Take 50 mg Uni vers potassium 9-08 by mouth. ity o f (LOSARTAN 16:53: [place] ORAL) Medical Branch CLONAZEPAM Yes .5mg Take 0.5 Uni vers ORAL 9-08 mg by ity of 16:53: mouth. [address] Branch ESCITALOPRA Yes 20mg Take 20 mg Univers M OXALATE 9-08 by mouth. ity o f ORAL 16:53: [address] pantoprazol Yes 40mg Take 40 mg Univers e 40 mg EC 9-08 by mouth ity o f tablet 16:53: daily. [address] Branch montelukast Yes 10mg Take 10 mg Univers 10 mg 9-08 by mouth ity of tablet 16:53: once now. [address] Branch ondansetron Yes 4mg Take 4 mg U nivers (ZOFRAN 9-08 by mouth ity of ODT) 4 mg 16:53: every 6 [place] [address] (six) Medical ing tablet hours as Branc h needed for Nausea and Vomiting (N/V). losartan Yes 50mg Take 50 mg Uni vers potassium 9-08 by mouth. ity o f (LOSARTAN 16:53: [facility]) [address] [place] [address] Branch CLONAZEPAM Yes .5mg Take 0.5 Uni vers ORAL 9-08 mg by ity of 16:53: mouth. [address] Branch ESCITALOPRA Yes 20mg Take 20 mg Univers M OXALATE 9-08 by mouth. ity o f ORAL 16:53: [address] pantoprazol 0 Yes 40mg Take 40 mg Univers e 40 mg EC 9-08 by mouth ity o f tablet 16:53: daily. [address] montelukast Yes 10mg Take 10 mg Univers 10 mg 9-08 by mouth ity of tablet 16:53: once now. [place] [address] Medical Branch ondansetron 2020-0 Yes 4mg Take 4 mg U nivers (ZOFRAN 9-08 by mouth ity of ODT) 4 mg 16:53: every 6 [place] [address] (six) Medical ing tablet hours as Branc h needed for Nausea and Vomiting (N/V). traZODone 2020-0 Yes 50mg Take 50 mg [address] 50 mg 9-08 by mouth ity of tablet 11:54: at [place] [address] bedtime. Medical Branch omeprazole 2020-0 Yes 40mg Take 40 mg U nivers 40 mg 9-08 by mouth. ity of capsule 11:54: [place] [address] Medical Branch traZODone 2020-0 Yes 50mg Take 50 mg [address] 50 mg 9-08 by mouth ity of tablet 11:54: at [place] [address] bedtime. Medical Branch omeprazole 2020-0 Yes 40mg Take 40 mg U nivers 40 mg 9-08 by mouth. ity of capsule 11:54: [place] [address] Medical Branch traZODone 2020-0 Yes 50mg Take 50 mg [address] 50 mg 9-08 by mouth ity of tablet 11:54: at [place] [address] bedtime. Medical Branch omeprazole 2020-0 Yes 40mg Take 40 mg U nivers 40 mg 9-08 by mouth. ity of capsule 11:54: [place] [address] Medical Branch traZODone 2020-0 Yes 50mg Take 50 mg [address] 50 mg 9-08 by mouth ity of tablet 11:54: at [place] [address] bedtime. Medical Branch omeprazole 2020-0 Yes 40mg Take 40 mg U nivers 40 mg 9-08 by mouth. ity of capsule 11:54: [place] [address] Medical Branch traZODone 2020-0 Yes 50mg Take 50 mg [address] 50 mg 9-08 by mouth ity of tablet 11:54: at [place] [address] bedtime. Medical Branch omeprazole 2020-0 Yes 40mg Take 40 mg U nivers 40 mg 9-08 by mouth. ity of capsule 11:54: [address] Branch traZODone 2020-0 Yes 50mg Take 50 mg [place] 50 mg 9-08 by mouth ity of tablet 11:54: at [place] [address] bedtime. Medical Branch omeprazole 2021-0 Yes 40mg Take 40 mg U nivers 40 mg 9-08 by mouth. ity of capsule 11:54: [address] losartan 0 Yes 50mg Take 50 mg Uni vers potassium 9-08 by mouth. ity o f (LOSARTAN 11:53: [place] ORAL) [address] [place] [address] CLONAZEPAM 0 Yes .5mg Take 0.5 Uni vers ORAL 9-08 mg by ity of 11:53: mouth. [address] ESCITALOPRA 0 Yes 20mg Take 20 mg Univers M OXALATE 9-08 by mouth. ity o f ORAL 11:53: [address] pantoprazol Yes 40mg Take 40 mg Univers e 40 mg EC 9-08 by mouth ity o f tablet 11:53: daily. [address] montelukast 0 Yes 10mg Take 10 mg Univers 10 mg 9-08 by mouth ity of tablet 11:53: once now. [address] ondansetron 0 Yes 4mg Take 4 mg U nivers (ZOFRAN 9-08 by mouth ity of ODT) 4 mg 11:53: every 6 [place] disintegrat 28 (six) Medical ing tablet hours as Branc h needed for Nausea and Vomiting (N/V). losartan Yes 50mg Take 50 mg Uni vers potassium 9-08 by mouth. ity o f (LOSARTAN 11:53: [address] CLONAZEPAM Yes .5mg Take 0.5 Uni vers ORAL 9-08 mg by ity of 11:53: mouth. [address] ESCITALOPRA Yes 20mg Take 20 mg Univers M OXALATE 9-08 by mouth. ity o f ORAL 11:53: [address] pantoprazol 0 Yes 40mg Take 40 mg Univers e 40 mg EC 9-08 by mouth ity o f tablet 11:53: daily. [address] montelukast 0 Yes 10mg Take 10 mg Univers 10 mg 9-08 by mouth ity of tablet 11:53: once now. [address] ondansetron 0 Yes 4mg Take 4 mg U nivers (ZOFRAN 9-08 by mouth ity of ODT) 4 mg 11:53: every 6 [place] disintegrat 28 (six) Medical ing tablet hours as Branc h needed for Nausea and Vomiting (N/V). losartan 0 Yes 50mg Take 50 mg Uni vers potassium 9-08 by mouth. ity o f (LOSARTAN 11:53: [place] ORAL) [address] [place] [address] CLONAZEPAM Yes .5mg Take 0.5 Uni vers ORAL 9-08 mg by ity of 11:53: mouth. [address] ESCITALOPRA Yes 20mg Take 20 mg Univers M OXALATE 9-08 by mouth. ity o f ORAL 11:53: [address] pantoprazol Yes 40mg Take 40 mg Univers e 40 mg EC 9-08 by mouth ity o f tablet 11:53: daily. [address] montelukast 0 Yes 10mg Take 10 mg Univers 10 mg 9-08 by mouth ity of tablet 11:53: once now. [address] ondansetron Yes 4mg Take 4 mg U nivers (ZOFRAN 9-08 by mouth ity of ODT) 4 mg 11:53: every 6 [place] disintegrat ([facility]) Medical ing tablet hours as Branc h needed for Nausea and Vomiting (N/V). losartan Yes 50mg Take 50 mg Uni vers potassium 9-08 by mouth. ity o f (LOSARTAN 11:53: [place] ORAL) [address] [place] [address] CLONAZEPAM Yes .5mg Take 0.5 Uni vers ORAL 9-08 mg by ity of 11:53: mouth. [address] ESCITALOPRA Yes 20mg Take 20 mg Univers M OXALATE 9-08 by mouth. ity o f ORAL 11:53: [address] pantoprazol 0 Yes 40mg Take 40 mg Univers e 40 mg EC 9-08 by mouth ity o f tablet 11:53: daily. [address] montelukast 0 Yes 10mg Take 10 mg Univers 10 mg 9-08 by mouth ity of tablet 11:53: once now. [address] ondansetron 0 Yes 4mg Take 4 mg U nivers (ZOFRAN 9-08 by mouth ity of ODT) 4 mg 11:53: every 6 [place] disintegrat (six) Medical ing tablet hours as Branc h needed for Nausea and Vomiting (N/V). losartan 0 Yes 50mg Take 50 mg Uni vers potassium 9-08 by mouth. ity o f (LOSARTAN 11:53: [place] ORAL) [address] [place] [address] CLONAZEPAM 0 Yes .5mg Take 0.5 Uni vers ORAL 9-08 mg by ity of 11:53: mouth. [address] ESCITALOPRA 0 Yes 20mg Take 20 mg Univers M OXALATE 9-08 by mouth. ity o f ORAL 11:53: [address] pantoprazol 0 Yes 40mg Take 40 mg Univers e 40 mg EC 9-08 by mouth ity o f tablet 11:53: daily. [address] montelukast 0 Yes 10mg Take 10 mg Univers 10 mg 9-08 by mouth ity of tablet 11:53: once now. [address] ondansetron Yes 4mg Take 4 mg U nivers (ZOFRAN 9-08 by mouth ity of ODT) 4 mg 11:53: every 6 [place] disintegrat 28 (six) Medical ing tablet hours as Branc h needed for Nausea and Vomiting (N/V). losartan Yes 50mg Take 50 mg Uni vers potassium 9-08 by mouth. ity o f (LOSARTAN 11:53: [place] ORAL) [address] [place] [address] CLONAZEPAM 0 Yes .5mg Take 0.5 Uni vers ORAL 9-08 mg by ity of 11:53: mouth. [address] ESCITALOPRA Yes 20mg Take 20 mg Univers M OXALATE 9-08 by mouth. ity o f ORAL 11:53: [address] pantoprazol 0 Yes 40mg Take 40 mg Univers e 40 mg EC 9-08 by mouth ity o f tablet 11:53: daily. [address] montelukast 2020-0 Yes 10mg Take 10 mg Univers 10 mg 9-08 by mouth ity of tablet 11:53: once now. [address] ondansetron 0 Yes 4mg Take 4 mg U nivers (ZOFRAN 9-08 by mouth ity of ODT) 4 mg 11:53: every 6 [place] disintegrat 28 (six) Medical ing tablet hours as Branc h needed for Nausea and Vomiting (N/V). erythromyci Yes [id number] .[id number][in_u Place 0.5 Univers n 5 mg/gram 9-08 s] Inches in ity of (0.5 %) 00:00: both eyes [place] ophthalmic 00 4 (four) Medic al ointment times Branch daily. erythromyci Yes [id number] .5[in_u Place 0.5 Univers n 5 mg/gram 9-08 s] Inches in ity of (0.5 %) 00:00: both eyes [place] ophthalmic 00 4 (four) Medic al ointment times Branch daily. erythromyci Yes [id number] .[id number][in_u Place 0.5 Univers n 5 mg/gram 9-08 s] Inches in ity of (0.5 %) 00:00: both eyes [place] ophthalmic 00 4 (four) Medic al ointment times Branch daily. erythromyci Yes [id number] .5[in_u Place 0.5 Univers n 5 mg/gram 9-08 s] Inches in ity of (0.5 %) 00:00: both eyes [place] ophthalmic 00 4 (four) Medic al ointment times Branch daily. erythromyci Yes [id number] .5[in_u Place 0.5 Univers n 5 mg/gram 9-08 s] Inches in ity of (0.5 %) 00:00: both eyes [place] ophthalmic 00 4 (four) Medic al ointment times Branch daily. erythromyci Yes [id number] .5[in_u Place 0.5 Univers n 5 mg/gram 9-08 s] Inches in ity of (0.5 %) 00:00: both eyes [place] ophthalmic 00 4 (four) Medic al ointment times Branch daily. erythromyci Yes [id number] .5[in_u Place 0.5 Univers n 5 mg/gram 9-08 s] Inches in ity of (0.5 %) 00:00: both eyes [place] ophthalmic 00 4 (four) Medic al ointment times Branch daily. erythromyci Yes [id number] .5[in_u Place 0.5 Univers n 5 mg/gram 9-08 s] Inches in ity of (0.5 %) 00:00: both eyes [place] ophthalmic 00 4 (four) Medic al ointment times Branch daily. amitriptyli Yes 25mg Take 25 mg Univers ne 25 mg 8-16 by mouth ity of tablet 00:00: at [place] 00 bedtime. Medical Branch amitriptyli Yes 25mg Take 25 mg Univers ne 25 mg 8-16 by mouth ity of tablet 00:00: at [place] 00 bedtime. Medical Branch amitriptyli Yes 25mg Take 25 mg Univers ne 25 mg 8-16 by mouth ity of tablet 00:00: at [place] 00 bedtime. Medical Branch amitriptyli Yes 25mg Take 25 mg Univers ne 25 mg 8-16 by mouth ity of tablet 00:00: at [place] 00 bedtime. Medical Branch amitriptyli Yes 25mg Take 25 mg Univers ne 25 mg 8-16 by mouth ity of tablet 00:00: at [place] 00 bedtime. Medical Branch amitriptyli Yes 25mg Take 25 mg Univers ne 25 mg 8-16 by mouth ity of tablet 00:00: at [place] 00 bedtime. Medical Branch amitriptyli Yes 25mg Take 25 mg Univers ne 25 mg 8-16 by mouth ity of tablet 00:00: at [place] 00 bedtime. Medical Branch amitriptyli Yes 25mg Take 25 mg Univers ne 25 mg 8-16 by mouth ity of tablet 00:00: at [place] 00 bedtime. Medical Branch losartan Yes 50mg Take 50 mg Uni vers potassium 7-28 by mouth. ity o f (LOSARTAN 19:03: [place] ORAL) 59 Medical Branch CLONAZEPAM Yes .5mg Take 0.5 Uni vers ORAL 7-28 mg by ity of 19:03: mouth. [place] 59 Medical Branch ESCITALOPRA 0 Yes 20mg Take 20 mg Univers M OXALATE 7-28 by mouth. ity o f ORAL 19:03: [place] 59 Medical Branch pantoprazol Yes 40mg Take 40 mg Univers e 40 mg EC 7-28 by mouth ity o f tablet 19:03: daily. [place] [address] Medical Branch traZODone Yes 50mg Take 50 mg [address] 50 mg 7-28 by mouth ity of tablet 19:03: at [place] [address] bedtime. Medical Branch montelukast 0 Yes 10mg Take 10 mg Univers 10 mg 7-28 by mouth ity of tablet 19:03: once now. [place] [address] Medical Branch ondansetron 0 Yes 4mg Take 4 mg U nivers (ZOFRAN 7-28 by mouth ity of ODT) 4 mg 19:03: every 6 [place] disintegrat 59 (six) Medical ing tablet hours as Branc h needed for Nausea and Vomiting (N/V). losartan Yes 50mg Take 50 mg Uni vers potassium 7-28 by mouth. ity o f (LOSARTAN 19:03: [place] ORAL) Medical Branch CLONAZEPAM Yes .5mg Take 0.5 Uni vers ORAL 7-28 mg by ity of 19:03: mouth. [place] [address] Medical Branch ESCITALOPRA Yes 20mg Take 20 mg Univers M OXALATE 7-28 by mouth. ity o f ORAL 19:03: [place] [address] Medical Branch pantoprazol Yes 40mg Take 40 mg Univers e 40 mg EC 7-28 by mouth ity o f tablet 19:03: daily. [place] [address] Medical Branch traZODone Yes 50mg Take 50 mg [address] 50 mg 7-28 by mouth ity of tablet 19:03: at [place] [address] bedtime. Medical Branch montelukast Yes 10mg Take 10 mg Univers 10 mg 7-28 by mouth ity of tablet 19:03: once now. [place] [address] Medical Branch ondansetron 0 Yes 4mg Take 4 mg U nivers (ZOFRAN 7-28 by mouth ity of ODT) 4 mg 19:03: every 6 [place] disintegrat 59 (six) Medical ing tablet hours as Branc h needed for Nausea and Vomiting (N/V). simethicone 0 Yes PRN, Univer s (GAS RELIEF 7-28 Starting ity of (SIMETHICON 18:17: Wed [place] E)) 40 00 02/25/21 at Medical mg/0.6 mL 1317, Branch drops Until Discontinu ed, Routine, Intra-op simethicone 2020- No PRN, [facility] rs (GAS RELIEF 02-25 Starting ity of (SIMETHICON 18:17: 21:03 Wed [place] E)) 40 00 :59 02/25/21 at Medical mg/0.6 mL 1317, Branch drops Until 02/25/21 at 1603, Routine, Intra-op lactated 2020- No 1000mL at 42 [facility] rs ringers IV 02-25 mL/hr, ity of infusion 17:15: 17:28 1,000 mL, [place] as 1,000 mL 00 :00 IV Medical Infusion, Branch ONCE, 1 dose, Tue02/25/21 at 1215, Routine, DSU Pre-op lactated 2020- No 1000mL at 42 [facility] ringers IV 02-25 mL/hr, ity of infusion 17:15: 17: 1,000 mL, [place] 1,000 mL 00 :00 IV Medical Infusion, Branch ONCE, 1 dose, 02/25/21 at 1215, Routine, DSU Pre-op metoclopram No 10mg 10 mg, Uni vers lizzette HCl 02-04 Slow IV ity of (REGLAN) 22:15: 21:07 Push, [place] injection 00 :00 ONCE, 1 Medical 10 mg dose, [facility] Branch 02/04/21 at 1715, BRENT proMETHazin No 25mg 25 mg, IV Univers e 02-04 Piggyback, ity of (PHENERGAN) 20:15: 20:15 ONCE, 1 [place] 25 mg in 00 :00 dose, Wed Medica l NaCl 0.9% 02/04/21 at Branc h (NS) 50 mL 1515, 50 piggyback mL NaCl 0.9% 2020- No 1000mL at 999 Uni vers (NS) bolus 02-04 mL/hr, ity of infusion 20:15: 19:24 1,000 mL, [place] 1,000 mL 00 :00 IV Medical Infusion, Branch ONCE, 1 dose, 02/04/21 at 1515, STAT FENTanyl PF 2020- No 100ug 100 mcg, Univers (SUBLIMAZE 02-04 Slow IV ity o f (PF)) 19:54: 19:57 [place], [place] injection 00 :00 ONCE, 1 Medical 100 mcg dose, [facility] Branch 02/04/21 at 1500, STAT iopamidol 2020- No [id number] 120mL 120 mL, Univers (ISOVUE 02-04 Intravenou ity o f 370-500 mL) 19:32: 19:32 s, ONCE, 1 [place] injection 00 :00 dose, Wed Medic al 120 mL 02/04/21 at Branch 1445, Routine ALPRAZolam Yes Univers 0.25 mg 4-28 ity of tablet 00:00: [place] [facility] ALPRAZolam Yes Univers 0.25 mg 4-28 ity of tablet 00:00: [address] ALPRAZolam Yes Univers 0.25 mg 4-28 ity of tablet 00:00: [place] [facility] ALPRAZolam Yes Univers 0.25 mg 4-28 ity of tablet 00:00: [place] [facility] ALPRAZolam Yes Univers 0.25 mg 4-28 ity of tablet 00:00: [place] [facility] ALPRAZolam 0 Yes Univers 0.25 mg 4-28 ity of tablet 00:00: [address] proMETHazin 2020- No 12.5mg 12.5 mg, Univers e 11-25 IV ity of (PHENERGAN) 14:30: 13:44 Piggyback, [place] 12.5 mg in 00 :00 ONCE, 1 Medica l NaCl 0.9% dose, [facility] h (NS) 50 mL 11/25/20 at piggyback 0930, 50 mL FENTanyl PF 2020- No 75ug 75 mcg, Un way[place] (SUBLIMAZE 11-25 Slow IV ity o f (PF)) 14:30: 13:43 [place], [place] injection 00 :00 ONCE, 1 Medical 75 mcg dose, [facility] Branch 11/25/20 at 0930, STAT FENTanyl PF 2021-0 2021- No 50ug 50 mcg, [place] (SUBLIMAZE 11-25 Slow IV ity o f (PF)) 12:45: 11:44 [place], [place] injection 00 :00 ONCE, 1 Medical 50 mcg dose, [facility] Branch 11/25/20 at 0745, Routine metoclopram 2020- No 10mg 10 mg, Uni vers lizzette HCl 11-25 Slow IV ity of (REGLAN) 12:45: 11:44 [place], [place] injection 00 :00 ONCE, 1 Medical 10 mg dose, [facility] Branch 11/25/20 at 0745, BRENT iohexol 2020- No [id number] 120mL 120 mL, Univers (OMNIPAQUE 11-25 Intravenou it y of 350 12:30: 12:30 s, ONCE, 1 [place] BULK-150 00 :00 dose, Tue Medica l mL) 11/25/20 at Branch injection 0730, 120 mL Routine NaCl 0.9% 2020- No 1000mL at 999 Uni vers (NS) bolus 11-25 mL/hr, ity of infusion 11:45: 14:12 1,000 mL, John as 1,000 mL 00 :00 IV Medical Infusion, Branch ONCE, 1 dose, [facility] 11/25/20 at 0645, BRENT proMETHazin Yes [id number] 25mg Take 1 Univers e 25 mg 4-27 tablet by ity of tablet 00:00: mouth [place] 00 every 6 Medical (six) Branch hours as needed for Nausea and Vomiting (N/V). dicyclomine Yes [id number] 20mg Take 1 Univers 20 mg 4-27 tablet by ity of tablet 00:00: mouth 4 00 (four) Medical times Branch daily. traMADoL 50 Yes [id number] 50mg Take 1 Univ ers mg tablet 4-27 tablet by ity o f 00:00: mouth [place] 00 every 6 Medical (six) Branch hours as needed for Pain (scale 4-6). Indication s: acute pain Nitrofurant Yes [id number] 100mg Take 1 Univers oin&Nit. 4-27 capsule by ity o f Macrocryst 00:00: mouth 2 [place] (MACROBID[place] 00 (two) Medical 100 mg times Branch capsule daily. proMETHazin 2020-0 Yes [id number] 25mg Take 1 Univers e 25 mg 4-27 tablet by ity of tablet 00:00: mouth [place] 00 every 6 Medical (six) Branch hours as needed for Nausea and Vomiting (N/V). dicyclomine 2020-0 Yes [id number] 20mg Take 1 Univers 20 mg 4-27 tablet by ity of tablet 00:00: mouth 4 [place] 00 (four) Medical times Branch daily. traMADoL 50 2020-0 Yes [id number] 50mg Take 1 Univ ers mg tablet 4-27 tablet by ity o f 00:00: mouth [place] 00 every 6 Medical (six) Branch hours as needed for Pain (scale 4-6). Indication s: acute pain Nitrofurant 2020-0 Yes [id number] 100mg Take 1 Univers oin&Nit. 4-27 capsule by ity o f Macrocryst 00:00: mouth 2 [place] (MACROBID[place] 00 (two) Medical 100 mg times Branch capsule daily. proMETHazin 2020-0 Yes [id number] 25mg Take 1 Univers e 25 mg 4-27 tablet by ity of tablet 00:00: mouth [place] 00 every 6 Medical (six) Branch hours as needed for Nausea and Vomiting (N/V). dicyclomine 2020-0 Yes [id number] 20mg Take 1 Univers 20 mg 4-27 tablet by ity of tablet 00:00: mouth 4 [place] 00 (four) Medical times Branch daily. traMADoL 50 2020-0 Yes [id number] 50mg Take 1 Univ ers mg tablet 4-27 tablet by ity o f 00:00: mouth [place] 00 every 6 Medical (six) Branch hours as needed for Pain (scale 4-6). Indication s: acute pain Nitrofurant 2020-0 Yes [id number] 100mg Take 1 Univers oin&Nit. 4-27 capsule by ity o f Macrocryst 00:00: mouth 2 [place] (MACROBID[place] 00 (two) Medical 100 mg times Branch capsule daily. proMETHazin 2020-0 Yes [id number] 25mg Take 1 Univers e 25 mg 4-27 tablet by ity of tablet 00:00: mouth [place] 00 every 6 Medical (six) Branch hours as needed for Nausea and Vomiting (N/V). dicyclomine 0 Yes [id number] 20mg Take 1 Univers 20 mg 4-27 tablet by ity of tablet 00:00: mouth 4 [place] 00 (four) Medical times Branch daily. traMADoL 50 0 Yes [id number] 50mg Take 1 Univ ers mg tablet 4-27 tablet by ity o f 00:00: mouth [place] 00 every 6 Medical (six) Branch hours as needed for Pain (scale 4-6). Indication s: acute pain Nitrofurant Yes [id number] 100mg Take 1 Univers oin&Nit. 4-27 capsule by ity o f Macrocryst 00:00: mouth 2 [place] (MACROBID[place] 00 (two) Medical 100 mg times Branch capsule daily. proMETHazin 0 Yes [id number] 25mg Take 1 Univers e 25 mg 4-27 tablet by ity of tablet 00:00: mouth [place] 00 every 6 Medical (six) Branch hours as needed for Nausea and Vomiting (N/V). dicyclomine Yes [id number] 20mg Take 1 Univers 20 mg 4-27 tablet by ity of tablet 00:00: mouth 4 [place] 00 (four) Medical times Branch daily. traMADoL 50 0 Yes [id number] 50mg Take 1 Univ ers mg tablet 4-27 tablet by ity o f 00:00: mouth [place] 00 every 6 Medical (six) Branch hours as needed for Pain (scale 4-6). Indication s: acute pain Nitrofurant 0 Yes [id number] 100mg Take 1 Univers oin&Nit. 4-27 capsule by ity o f Macrocryst 00:00: mouth 2 [place] (MACROBID[place] 00 (two) Medical 100 mg times Branch capsule daily. proMETHazin 2020-0 Yes [id number] 25mg Take 1 Univers e 25 mg 4-27 tablet by ity of tablet 00:00: mouth [place] 00 every 6 Medical (six) Branch hours as needed for Nausea and Vomiting (N/V). dicyclomine 0 Yes [id number] 20mg Take 1 Univers 20 mg 4-27 tablet by ity of tablet 00:00: mouth 4 [place] 00 (four) Medical times Branch daily. traMADoL 50 0 Yes [id number] 50mg Take 1 Univ ers mg tablet 4-27 tablet by ity o f 00:00: mouth [place] 00 every 6 Medical (six) Branch hours as needed for Pain (scale 4-6). Indication s: acute pain Nitrofurant 2020-0 Yes [id number] 100mg Take 1 Univers oin&Nit. 4-27 capsule by ity o f Macrocryst 00:00: mouth 2 [place] (MACROBID[place] 00 (two) Medical 100 mg times Branch capsule daily. proMETHazin 2020-0 Yes [id number] 25mg Take 1 Univers e 25 mg 4-27 tablet by ity of tablet 00:00: mouth [place] 00 every 6 Medical (six) Branch hours as needed for Nausea and Vomiting (N/V). dicyclomine 2020-0 Yes [id number] 20mg Take 1 Univers 20 mg 4-27 tablet by ity of tablet 00:00: mouth 4 [place] 00 (four) Medical times Branch daily. traMADoL 50 0 Yes [id number] 50mg Take 1 Univ ers mg tablet 4-27 tablet by ity o f 00:00: mouth [place] 00 every 6 Medical (six) Branch hours as needed for Pain (scale 4-6). Indication s: acute pain Nitrofurant 2020-0 Yes [id number] 100mg Take 1 Univers oin&Nit. 4-27 capsule by ity o f Macrocryst 00:00: mouth 2 [place] (MACROBID[place] 00 (two) Medical 100 mg times Branch capsule daily. proMETHazin 2020-0 Yes [id number] 25mg Take 1 Univers e 25 mg 4-27 tablet by ity of tablet 00:00: mouth [place] 00 every 6 Medical (six) Branch hours as needed for Nausea and Vomiting (N/V). dicyclomine 2020-0 Yes [id number] 20mg Take 1 Univers 20 mg 4-27 tablet by ity of tablet 00:00: mouth 4 [place] 00 (four) Medical times Branch daily. traMADoL 50 2020-0 Yes [id number] 50mg Take 1 Univ ers mg tablet 4-27 tablet by ity o f 00:00: mouth [place] 00 every 6 Medical (six) Branch hours as needed for Pain (scale 4-6). Indication s: acute pain Nitrofurant 2020-0 Yes [id number] 100mg Take 1 Univers oin&Nit. 4-27 capsule by ity o f Macrocryst 00:00: mouth 2 [place] (MACROBID[place] 00 (two) Medical 100 mg times Branch capsule daily. proMETHazin 0 Yes [id number] 25mg Take 1 Univers e 25 mg 4-27 tablet by ity of tablet 00:00: mouth [place] 00 every 6 Medical (six) Branch hours as needed for Nausea and Vomiting (N/V). dicyclomine 0 Yes [id number] 20mg Take 1 Univers 20 mg 4-27 tablet by ity of tablet 00:00: mouth 4 [place] 00 (four) Medical times Branch daily. traMADoL 50 0 Yes [id number] 50mg Take 1 Univ ers mg tablet 4-27 tablet by ity o f 00:00: mouth [place] 00 every 6 Medical (six) Branch hours as needed for Pain (scale 4-6). Indication s: acute pain Nitrofurant 0 Yes [id number] 100mg Take 1 Univers oin&Nit. 4-27 capsule by ity o f Macrocryst 00:00: mouth 2 [place] (MACROBID[place] 00 (two) Medical 100 mg times Branch capsule daily. proMETHazin Yes [id number] 25mg Take 1 Univers e 25 mg 4-27 tablet by ity of tablet 00:00: mouth [place] 00 every 6 Medical (six) Branch hours as needed for Nausea and Vomiting (N/V). dicyclomine 0 Yes [id number] 20mg Take 1 Univers 20 mg 4-27 tablet by ity of tablet 00:00: mouth 4 [place] 00 (four) Medical times Branch daily. traMADoL 50 0 Yes [id number] 50mg Take 1 Univ ers mg tablet 4-27 tablet by ity o f 00:00: mouth [place] 00 every 6 Medical (six) Branch hours as needed for Pain (scale 4-6). Indication s: acute pain Nitrofurant 2020-0 Yes [id number] 100mg Take 1 Univers oin&Nit. 4-27 capsule by ity o f Macrocryst 00:00: mouth 2 [place] (MACROBID[place] 00 (two) Medical 100 mg times Branch capsule daily. proMETHazin 2020-0 Yes [id number] 25mg Take 1 Univers e 25 mg 4-27 tablet by ity of tablet 00:00: mouth [place] 00 every 6 Medical (six) Branch hours as needed for Nausea and Vomiting (N/V). dicyclomine 2020-0 Yes [id number] 20mg Take 1 Univers 20 mg 4-27 tablet by ity of tablet 00:00: mouth 4 00 (four) Medical times Branch daily. traMADoL 50 2020-0 Yes [id number] 50mg Take 1 Univ ers mg tablet 4-27 tablet by ity o f 00:00: mouth [place] 00 every 6 Medical (six) Branch hours as needed for Pain (scale 4-6). Indication s: acute pain Nitrofurant 2020-0 Yes [id number] 100mg Take 1 Univers oin&Nit. 4-27 capsule by ity o f Macrocryst 00:00: mouth 2 [place] (MACROBID) 00 (two) Medical 100 mg times Branch capsule daily. proMETHazin 2020-0 Yes [id number] 25mg Take 1 [facility] e 25 mg 4-27 tablet by ity of tablet 00:00: mouth [place] 00 every 6 Medical (six) Branch hours as needed for Nausea and Vomiting (N/V). dicyclomine 2020-0 Yes [id number] 20mg Take 1 [facility] 20 mg 4-27 tablet by ity of tablet 00:00: mouth 00 (four) Medical times Branch daily. traMADoL 50 0 Yes [id number] 50mg Take 1 Univ ers mg tablet 4-27 tablet by ity o f 00:00: mouth [place] 00 every 6 Medical (six) Branch hours as needed for Pain (scale 4-6). Indication s: acute pain Nitrofurant 2020-0 Yes [id number] 100mg Take 1 [facility] oin&Nit. 4-27 capsule by ity o f Macrocryst 00:00: [place] 2 [place] (MACROBID[place] 00 (two) Medical 100 mg times Branch capsule daily. proMETHazin 2020-0 Yes [id number] 25mg Take 1 [facility] e 25 mg 4-27 tablet by ity of tablet 00:00: mouth [place] 00 every 6 Medical (six) Branch hours as needed for Nausea and Vomiting (N/V). dicyclomine 2020-0 Yes [id number] 20mg Take 1 [facility] 20 mg 4-27 tablet by ity of tablet 00:00: mouth 4 [place] 00 (four) Medical times Branch daily. traMADoL 50 0 Yes [id number] 50mg Take 1 Univ ers mg tablet 4-27 tablet by ity o f 00:00: mouth [place] 00 every 6 Medical (six) Branch hours as needed for Pain (scale 4-6). Indication s: acute pain Nitrofurant 0 Yes [id number] 100mg Take 1 [facility] oin&Nit. 4-27 capsule by ity o f Macrocryst 00:00: mouth 2 [place] (MACROBID) 00 (two) Medical 100 mg times Branch capsule daily. proMETHazin Yes [id number] 25mg Take 1 [facility] e 25 mg 4-27 tablet by ity of tablet 00:00: mouth [place] 00 every 6 Medical (six) Branch hours as needed for Nausea and Vomiting (N/V). dicyclomine Yes [id number] 20mg Take 1 [facility] 20 mg 4-27 tablet by ity of tablet 00:00: mouth 00 (four) Medical times Branch daily. traMADoL 50 Yes [id number] 50mg Take 1 [facility] ers mg tablet 4-27 tablet by ity o f 00:00: mouth [place] 00 every 6 Medical (six) Branch hours as needed for Pain (scale 4-6). Indication s: acute pain Nitrofurant Yes [id number] 100mg Take 1 [facility] oin&Nit. 4-27 capsule by ity o f Macrocryst 00:00: mouth 2 [place] (MACROBID) 00 (two) Medical 100 mg times Branch capsule daily. proMETHazin Yes [id number] 25mg Take 1 [facility] e 25 mg 4-27 tablet by ity of tablet 00:00: mouth [place] 00 every 6 Medical (six) Branch hours as needed for Nausea and Vomiting (N/V). dicyclomine 0 Yes [id number] 20mg Take 1 [facility] 20 mg 4-27 tablet by ity of tablet 00:00: mouth 4 00 (four) Medical times Branch daily. traMADoL 50 0 Yes [id number] 50mg Take 1 Univ ers mg tablet 4-27 tablet by ity o f 00:00: mouth [place] 00 every 6 Medical (six) Branch hours as needed for Pain (scale 4-6). Indication s: acute pain Nitrofurant Yes [id number] 100mg Take 1 [facility] oin&Nit. 4-27 capsule by ity o f Macrocryst 00:00: mouth 2 [place] (MACROBID) 00 (two) Medical 100 mg times Branch capsule daily. famotidine Yes [facility] 20 mg 4-08 ity of tablet 00:00: [place] [facility] [place] famotidine Yes [facility] 20 mg 4-08 ity of tablet 00:00: [place] [facility] famotidine Yes Univers 20 mg 4-08 ity of tablet 00:00: [place] [facility] famotidine Yes Univers 20 mg 4-08 ity of tablet 00:00: [place] [facility] famotidine Yes Univers 20 mg 4-08 ity of tablet 00:00: [place] [facility] famotidine Yes Univers 20 mg 4-08 ity of tablet 00:00: [place] [facility] losartan 0 Yes 50mg Take 50 mg Uni vers potassium 6-25 by mouth. ity o f (LOSARTAN 22:40: [place] ORAL) [address] [place] [address] CLONAZEPAM Yes .5mg Take 0.5 Uni vers ORAL 6-25 mg by ity of 22:40: mouth. [address] ESCITALOPRA Yes 20mg Take 20 mg Univers M OXALATE 6-25 by mouth. ity o f ORAL 22:40: [address] pantoprazol 2019-0 Yes 40mg Take 40 mg Univers e 40 mg EC 6-25 by mouth ity o f tablet 22:40: daily. [address] traZODone 2019-0 Yes 50mg Take 50 mg [address] 50 mg 6-25 by mouth ity of tablet 22:40: at [place] [address] bedtime. Medical Branch montelukast 2019-0 Yes 10mg Take 10 mg Univers 10 mg 6-25 by mouth ity of tablet 22:40: once now. [address] losartan 2019-0 Yes 50mg Take 50 mg Uni vers potassium 6-25 by mouth. ity o f (LOSARTAN 22:40: [place] ORAL) [address] [place] [address] CLONAZEPAM 2019-0 Yes .5mg Take 0.5 Uni vers ORAL 6-25 mg by ity of 22:40: mouth. [address] ESCITALOPRA 2020-0 Yes 20mg Take 20 mg Univers M OXALATE 6-25 by mouth. ity o f ORAL 22:40: [address] pantoprazol 2020-0 Yes 40mg Take 40 mg Univers e 40 mg EC 6-25 by mouth ity o f tablet 22:40: daily. [address] traZODone 2020-0 Yes 50mg Take 50 mg [place] 50 mg 6-25 by mouth ity of tablet 22:40: at [place] [address] bedtime. [facility] montelukast 2020-0 Yes 10mg Take 10 mg Univers 10 mg 6-25 by mouth ity of tablet 22:40: once now. [address] losartan 2020-0 Yes 50mg Take 50 mg Uni vers potassium 6-25 by mouth. ity o f (LOSARTAN 22:40: [place] ORAL) [address] [place] [address] CLONAZEPAM 2020-0 Yes .5mg Take 0.5 Uni vers ORAL 6-25 mg by ity of 22:40: mouth. [address] ESCITALOPRA 2020-0 Yes 20mg Take 20 mg Univers M OXALATE 6-25 by mouth. ity o f ORAL 22:40: [address] pantoprazol 2020-0 Yes 40mg Take 40 mg Univers e 40 mg EC 6-25 by mouth ity o f tablet 22:40: daily. [address] traZODone 2020-0 Yes 50mg Take 50 mg [place] 50 mg 6-25 by mouth ity of tablet 22:40: at [place] [address] bedtime. [facility] montelukast 2020-0 Yes 10mg Take 10 mg Univers 10 mg 6-25 by mouth ity of tablet 22:40: once now. [address] losartan 2020-0 Yes 50mg Take 50 mg Uni vers potassium 6-25 by mouth. ity o f (LOSARTAN 22:40: [place] ORAL) [address] [place] [address] CLONAZEPAM 2020-0 Yes .5mg Take 0.5 Uni vers ORAL 6-25 mg by ity of 22:40: mouth. [address] ESCITALOPRA 2020-0 Yes 20mg Take 20 mg [facility] M OXALATE 6-25 by mouth. ity o f ORAL 22:40: [address] pantoprazol 2020-0 Yes 40mg Take 40 mg Univers e 40 mg EC 6-25 by mouth ity o f tablet 22:40: daily. [address] traZODone 2020-0 Yes 50mg Take 50 mg [place] 50 mg 6-25 by mouth ity of tablet 22:40: at [place] [address] bedtime. Medical Branch montelukast 2020-0 Yes 10mg Take 10 mg Univers 10 mg 6-25 by mouth ity of tablet 22:40: once now. [address] losartan 2020-0 Yes 50mg Take 50 mg Uni vers potassium 6-25 by mouth. ity o f (LOSARTAN 22:40: [place] ORAL) [address] [place] [address] CLONAZEPAM 2020-0 Yes .5mg Take 0.5 Uni vers ORAL 6-25 mg by ity of 22:40: mouth. [address] ESCITALOPRA 2020-0 Yes 20mg Take 20 mg Univers M OXALATE 6-25 by mouth. ity o f ORAL 22:40: [address] pantoprazol 2020-0 Yes 40mg Take 40 mg Univers e 40 mg EC 6-25 by mouth ity o f tablet 22:40: daily. [address] traZODone 2020-0 Yes 50mg Take 50 mg [place] 50 mg 6-25 by mouth ity of tablet 22:40: at [place] [address] bedtime. [facility] montelukast 2020-0 Yes 10mg Take 10 mg Univers 10 mg 6-25 by mouth ity of tablet 22:40: once now. [address] losartan 2020-0 Yes 50mg Take 50 mg Uni vers potassium 6-25 by mouth. ity o f (LOSARTAN 22:40: [place] ORAL) [address] [place] [address] CLONAZEPAM 2020-0 Yes .5mg Take 0.5 Uni vers ORAL 6-25 mg by ity of 22:40: mouth. [address] ESCITALOPRA 2020-0 Yes 20mg Take 20 mg Univers M OXALATE 6-25 by mouth. ity o f ORAL 22:40: [address] pantoprazol 2020-0 Yes 40mg Take 40 mg Univers e 40 mg EC 6-25 by mouth ity o f tablet 22:40: daily. [address] traZODone 2020-0 Yes 50mg Take 50 mg [place] 50 mg 6-25 by mouth ity of tablet 22:40: at [place] [address] bedtime. [facility] montelukast 2020-0 Yes 10mg Take 10 mg Univers 10 mg 6-25 by mouth ity of tablet 22:40: once now. [address] losartan 2020-0 Yes 50mg Take 50 mg Uni vers potassium 6-25 by mouth. ity o f (LOSARTAN 22:40: [place] ORAL) [address] [place] [address] CLONAZEPAM 2020-0 Yes .5mg Take 0.5 Uni vers ORAL 6-25 mg by ity of 22:40: mouth. [address] ESCITALOPRA 2020-0 Yes 20mg Take 20 mg [facility] M OXALATE 6-25 by mouth. ity o f ORAL 22:40: [address] pantoprazol 2020-0 Yes 40mg Take 40 mg Univers e 40 mg EC 6-25 by mouth ity o f tablet 22:40: daily. [address] traZODone 2020-0 Yes 50mg Take 50 mg [place] 50 mg 6-25 by mouth ity of tablet 22:40: at [place] [address] bedtime. [facility] Branch montelukast 2020-0 Yes 10mg Take 10 mg Univers 10 mg 6-25 by mouth ity of tablet 22:40: once now. [address] losartan 2020-0 Yes 50mg Take 50 mg Uni vers potassium 6-25 by mouth. ity o f (LOSARTAN 22:40: [place] ORAL) [address] [place] [address] CLONAZEPAM 2020-0 Yes .5mg Take 0.5 Uni vers ORAL 6-25 mg by ity of 22:40: mouth. [address] ESCITALOPRA 2020-0 Yes 20mg Take 20 mg Univers M OXALATE 6-25 by mouth. ity o f ORAL 22:40: [address] pantoprazol 2020-0 Yes 40mg Take 40 mg Univers e 40 mg EC 6-25 by mouth ity o f tablet 22:40: daily. [address] Branch traZODone 2020-0 Yes 50mg Take 50 mg [place] 50 mg 6-25 by mouth ity of tablet 22:40: at [place] [address] bedtime. Medical Branch montelukast 2020-0 Yes 10mg Take 10 mg Univers 10 mg 6-25 by mouth ity of tablet 22:40: once now. [address] losartan 2020-0 Yes 50mg Take 50 mg Uni vers potassium 6-25 by mouth. ity o f (LOSARTAN 22:40: [place] ORAL) Medical [place] CLONAZEPAM 2020-0 Yes .5mg Take 0.5 Uni vers ORAL 6-25 mg by ity of 22:40: mouth. [address] ESCITALOPRA 2020-0 Yes 20mg Take 20 mg Univers M OXALATE 6-25 by mouth. ity o f ORAL 22:40: [address] pantoprazol 2020-0 Yes 40mg Take 40 mg Univers e 40 mg EC 6-25 by mouth ity o f tablet 22:40: daily. [address] traZODone 2020-0 Yes 50mg Take 50 mg [place] 50 mg 6-25 by mouth ity of tablet 22:40: at [place] [address] bedtime. [facility] montelukast 2020-0 Yes 10mg Take 10 mg Univers 10 mg 6-25 by mouth ity of tablet 22:40: once now. [address] losartan 2019-0 Yes 50mg Take 50 mg Uni vers potassium 6-25 by mouth. ity o f (LOSARTAN 22:40: [place] ORAL) [address] [place] [address] CLONAZEPAM 2019-0 Yes .5mg Take 0.5 Uni vers ORAL 6-25 mg by ity of 22:40: mouth. [address] ESCITALOPRA 2019-0 Yes 20mg Take 20 mg Univers M OXALATE 6-25 by mouth. ity o f ORAL 22:40: [address] pantoprazol 2020-0 Yes 40mg Take 40 mg Univers e 40 mg EC 6-25 by mouth ity o f tablet 22:40: daily. [address] traZODone 2020-0 Yes 50mg Take 50 mg [place] 50 mg 6-25 by mouth ity of tablet 22:40: at [place] [address] bedtime. [facility] montelukast 2020-0 Yes 10mg Take 10 mg Univers 10 mg 6-25 by mouth ity of tablet 22:40: once now. [address] losartan 2020-0 Yes 50mg Take 50 mg Uni vers potassium 6-25 by mouth. ity o f (LOSARTAN 22:40: [place] ORAL) [address] [place] [address] CLONAZEPAM 2020-0 Yes .5mg Take 0.5 Uni vers ORAL 6-25 mg by ity of 22:40: mouth. [address] ESCITALOPRA 2020-0 Yes 20mg Take 20 mg Univers M OXALATE 6-25 by mouth. ity o f ORAL 22:40: [address] pantoprazol 2020-0 Yes 40mg Take 40 mg Univers e 40 mg EC 6-25 by mouth ity o f tablet 22:40: daily. [address] traZODone 2019-0 Yes 50mg Take 50 mg [place] 50 mg 6-25 by mouth ity of tablet 22:40: at [place] [address] bedtime. Medical Branch montelukast 2019-0 Yes 10mg Take 10 mg Univers 10 mg 6-25 by mouth ity of tablet 22:40: once now. [address] ciprofloxac 2019-0 Yes 400mg 400 mg, IV Univers in in 5 % 01-23 Piggyback, ity of dextrose 17:45: Administer John as (CIPRO) 00 over 60 Medical piggyback Minutes, Branch 400 mg Q12H ABX, First dose on Ava 01/24/20 at 1245, Until Discontinu ed, BRENT
Re ason for Anti-Infec tive: Empiric Therapy for Suspected Infection< br>Empi isabella Therapy Site: Abdominal< br>Duratio n of therapy: 72 hours lactated 2019-2019- No 1000mL at 20 Unive rs ringers IV 6- 06-25 mL/hr, ity of infusion 14:00: 13:51 1,000 mL, [place] 1,000 mL 00 :00 IV Medical Infusion, [place] ONCE, 1 dose, [facility]va 01/24/20 at 0900, Routine, DSU Pre-op FENTanyl PF 2019- No 50ug 50 mcg, [place] (SUBLIMAZE 01-22 Slow IV ity o f (PF)) 21:50: 21:49 Push, [place] injection 30 :30 Q4HPRN, Medical 50 mcg Starting Branch 01/23/20 at 1650, Until Ava 01/24/20 at 1649, Routine, Pain (scale 7-10) NaCl 0.9% 2019-0 Yes 1000mL at 100 Univ ers (NS) IV 6-23 mL/hr, IV ity of infusion 20:45: Infusion, [place] 1,000 mL 00 CONTINUOUS Medic al , Starting Branch 01/22/20 at 1545, Until Discontinu ed, Routine FENTanyl PF 2019- 2020- No 50ug 50 mcg, [place] (SUBLIMAZE 01-21- Slow IV ity o f (PF)) 20:27: 20:26 Push, [place] injection 46 :46 Q4HPRN, Medical 50 mcg Starting Branch Tue01/22/20 at 1527, Until Tue01/23/20 at 1526, Routine, Pain (scale 7-10) losartan 2020-0 Yes 50mg 50 mg, Univers (COZAAR) 01-21 Oral, ity of tablet 50 14:00: DAILY, [place] mg 00 First dose Medical on [facility] 01/22/20 at 0900, Until Discontinu ed escitalopra 2019-0 Yes 20mg 20 mg, Univ ers m oxalate 01-21 Oral, ity of (LEXAPRO) 14:00: DAILY, [place] tablet 20 00 First dose Medi rama mg on [facility] 01/22/20 at 0900, Until Discontinu ed pantoprazol 2019-0 Yes 40mg 40 mg, IV U nivers e 01-21 Piggyback, ity of (PROTONIX) 07:30: Q12H, [place] 40 mg in 00 First dose Medic al NaCl 0.9% on [facility] (NS) 100 mL 01/22/20 at MINI-BAG 0230, Until Discontinu ed, 100 mL traZODone 2019-0 Yes 50mg 50 mg, Univer s (DESYREL) 01-21 Oral, QHS, ity of tablet 50 02:00: First dose [place] mg 00 on [facility] [place] 01/21/20 at Branch 2100, Until Discontinu ed, Routine alum-mag 2019-0 2020- No 30mL 30 mL, Univer s hydroxide-s 01-21 Oral, ity of imeth 01:10: 17:44 Q6HPRN, [place] (MAALOX 07 :07 Starting Medical PLUS / [facility] MAG-AL 01/21/20 at PLUS) 2009, 200-200-20 Until Tue mg/5 mL 01/22/20 at suspension 1244, 30 mL Routine, Indigestio n montelukast 2019-0 2020- No 10mg 10 mg, Uni vers (SINGULAIR) 01-20 Oral, ity of tablet 10 22:00: 01:18 ONCE, 1 [place] mg 00 :00 dose, [facility] [place] 01/21/20 at Branch 1700, Routine NaCl 0.9% 2019-0 2020- No 1000mL at 125 Uni vers (NS) IV 01-20 mL/hr, IV ity of infusion 21:15: 20:34 Infusion, [place] 1,000 mL 00 :55 CONTINUOUS Medic al , Starting Branch [facility] 01/21/20 at 1615, Until Tue01/22/20 at 1534, Routine proMETHazin 2019-0 Yes 25mg 25 mg, Univ ers e 01-20 Intramuscu ity of (PHENERGAN) 21:00: lar, [place] injection 08 Q4HPRN, Medical 25 mg Starting Branch [facility] 01/21/20 at 1600, Until Discontinu ed, Routine, Nausea and Vomiting (N/V) FENTanyl PF 2019-0 2020- No 50ug 50 mcg, [place] (SUBLIMAZE 01-20 Slow IV ity o f (PF)) 20:59: 20:28 Push, [place] injection 04 :06 Q4HPRN, Medical 50 mcg Starting [facility] 01/21/20 at 1559, Until Tue01/22/20 at 1528, Routine, Pain (scale 7-10) acetaminoph 2019-0 Yes 650mg 650 mg, [place] en 01-20 Oral, ity of (TYLENOL) 20:58: Q6HPRN, [place] tablet 650 24 Starting Medic al mg [facility] 01/21/20 at 1558, Until Discontinu ed, Routine, Pain (scale 1-3) clonazePAM 2020-0 Yes .5mg 0.5 mg, [facility] ers (KLONOPIN) 01-20 Oral, ity of tablet 0.5 20:54: QHSPRN, [place] mg 15 Starting Medical [facility] 01/21/20 at 1554, Until Discontinu ed, anxiety FENTanyl PF 2019-0 2020- No 50ug 50 mcg, [place] (SUBLIMAZE 01-20 Slow IV ity o f (PF)) 20:45: 19:42 Push, [place] injection 00 :00 ONCE, 1 Medical 50 mcg dose, [facility] 01/21/20 at 1545, Routine proMETHazin 2019-0 2020- No 12.5mg 12.5 mg, Univers e 01-20 IV ity of (PHENERGAN) 19:00: 17:51 Piggyback, [place] 12.5 mg in 00 :00 ONCE, 1 Medica l NaCl 0.9% dose, Mon Branc h (NS) 50 mL 01/21/20 at piggyback 1400, 50 mL FENTanyl PF 2019- No 50ug 50 mcg, [place] (SUBLIMAZE 01-20 Slow IV ity o f (PF)) 17:30: 16:32 Push, [place] injection 00 :00 ONCE, 1 Medical 50 mcg dose, Mon Branch 01/21/20 at 1230, Routine iohexol 2019- No 120mL 120 mL, Unive rs (OMNIPAQUE 01-20 Intravenou it y of 350 16:30: 16:30 s, ONCE, 1 [place] BULK-150 00 :00 dose, Mon Medica l mL) 01/21/20 at Branch injection 1130, 120 mL Routine proMETHazin 2019- No 12.5mg 12.5 mg, Univers e 01-20 IV ity of (PHENERGAN) 16:30: 15:41 Piggyback, [place] 12.5 mg in 00 :00 ONCE, 1 Medica l NaCl 0.9% dose, Mon Branc h (NS) 50 mL 01/21/20 at piggyback 1130, 50 mL NaCl 0.9% 2019- No 1000mL at 999 Uni vers (NS) bolus 01-20 mL/hr, ity of infusion 16:30: 19:41 1,000 mL, [place] as 1,000 mL 00 :00 IV Medical Infusion, [place] ONCE, 1 dose, 01/21/20 at 1130, STAT losartan 2018- Yes Take by [facility] [place] [facility] s potassium 2-12 mouth. ity of (LOSARTAN 18:48: [place] ORAL) [address] [place] [address] Branch CLONAZEPAM 2018- Yes Take by [facility] ers ORAL 2-12 mouth. ity of 18:48: [address] ESCITALOPRA 2018- Yes Take by Uni vers M OXALATE 2-12 mouth. ity of ORAL 18:48: [address] proMETHazin 2018- Yes [id number] 25mg Take 1 Univers e 25 mg 2-12 tablet by ity of tablet 00:00: mouth [place] 00 every 6 Medical (six) Branch hours as needed for Nausea and Vomiting (N/V). proMETHazin Yes [id number] 25mg Take 1 Univers e 25 mg 2-12 tablet by ity of tablet 00:00: mouth [place] 00 every 6 Medical (six) Branch hours as needed for Nausea and Vomiting (N/V). benzonatate 2019-0 Yes [id number] 100mg Take 1 Univers 100 mg 2-12 capsule by ity of capsule 00:00: mouth 3 [place] 00 (three) Medical times Branch daily as needed for Cough. proMETHazin 2019-0 Yes [id number] 25mg Take 1 Univers e 25 mg 2-12 tablet by ity of tablet 00:00: mouth [place] 00 every 6 Medical (six) Branch hours as needed for Nausea and Vomiting (N/V). proMETHazin 2019-0 Yes [id number] 25mg Take 1 Univers e 25 mg 2-12 tablet by ity of tablet 00:00: mouth [place] 00 every 6 Medical (six) Branch hours as needed for Nausea and Vomiting (N/V). proMETHazin 2019-0 Yes [id number] 25mg Take 1 Univers e 25 mg 2-12 tablet by ity of tablet 00:00: mouth [place] 00 every 6 Medical (six) Branch hours as needed for Nausea and Vomiting (N/V). proMETHazin 2019-0 Yes [id number] 25mg Take 1 Univers e 25 mg 2-12 tablet by ity of tablet 00:00: mouth [place] 00 every 6 Medical (six) Branch hours as needed for Nausea and Vomiting (N/V). proMETHazin 2019-0 Yes [id number] 25mg Take 1 Univers e 25 mg 2-12 tablet by ity of tablet 00:00: mouth [place] 00 every 6 Medical (six) Branch hours as needed for Nausea and Vomiting (N/V). proMETHazin 2019-0 Yes [id number] 25mg Take 1 Univers e 25 mg 2-12 tablet by ity of tablet 00:00: mouth [place] 00 every 6 Medical (six) Branch hours as needed for Nausea and Vomiting (N/V). proMETHazin 2019-0 Yes [id number] 25mg Take 1 Univers e 25 mg 2-12 tablet by ity of tablet 00:00: mouth [place] 00 every 6 Medical (six) Branch hours as needed for Nausea and Vomiting (N/V). proMETHazin 2019-0 Yes [id number] 25mg Take 1 Univers e 25 mg 2-12 tablet by ity of tablet 00:00: mouth [place] 00 every 6 Medical (six) Branch hours as needed for Nausea and Vomiting (N/V). proMETHazin 2019-0 Yes [id number] 25mg Take 1 Univers e 25 mg 2-12 tablet by ity of tablet 00:00: mouth [place] 00 every 6 Medical (six) Branch hours as needed for Nausea and Vomiting (N/V). proMETHazin 2019-0 Yes [id number] 25mg Take 1 Univers e 25 mg 2-12 tablet by ity of tablet 00:00: mouth [place] 00 every 6 Medical (six) Branch hours as needed for Nausea and Vomiting (N/V). proMETHazin 2019-0 Yes [id number] 25mg Take 1 Univers e 25 mg 2-12 tablet by ity of tablet 00:00: mouth [place] 00 every 6 Medical (six) Branch hours as needed for Nausea and Vomiting (N/V). proMETHazin 2019-0 Yes [id number] 25mg Take 1 Univers e 25 mg 2-12 tablet by ity of tablet 00:00: mouth [place] 00 every 6 Medical (six) Branch hours as needed for Nausea and Vomiting (N/V). proMETHazin 2019-0 Yes [id number] 25mg Take 1 Univers e 25 mg 2-12 tablet by ity of tablet 00:00: mouth [place] 00 every 6 Medical (six) Branch hours as needed for Nausea and Vomiting (N/V). proMETHazin 2019-0 Yes [id number] 25mg Take 1 Univers e 25 mg 2-12 tablet by ity of tablet 00:00: mouth [place] 00 every 6 Medical (six) Branch hours as needed for Nausea and Vomiting (N/V). proMETHazin 2019-0 Yes [id number] 25mg Take 1 Univers e 25 mg 2-12 tablet by ity of tablet 00:00: mouth [place] 00 every 6 Medical (six) Branch hours as needed for Nausea and Vomiting (N/V). proMETHazin 2019-0 Yes [id number] 25mg Take 1 Univers e 25 mg 2-12 tablet by ity of tablet 00:00: mouth [place] 00 every 6 Medical (six) Branch hours as needed for Nausea and Vomiting (N/V). proMETHazin 2019-0 Yes [id number] 25mg Take 1 Univers e 25 mg 2-12 tablet by ity of tablet 00:00: mouth [place] 00 every 6 Medical (six) Branch hours as needed for Nausea and Vomiting (N/V). proMETHazin Yes [id number] 25mg Take 1 Univers e 25 mg 2-12 tablet by ity of tablet 00:00: mouth [place] 00 every 6 Medical (six) Branch hours as needed for Nausea and Vomiting (N/V). proMETHazin Yes [id number] 25mg Take 1 Univers e 25 mg 2-12 tablet by ity of tablet 00:00: mouth [place] 00 every 6 Medical (six) Branch hours as needed for Nausea and Vomiting (N/V). proMETHazin Yes [id number] 25mg Take 1 Univers e 25 mg 2-12 tablet by ity of tablet 00:00: mouth [place] 00 every 6 Medical (six) Branch hours as needed for Nausea and Vomiting (N/V). benzonatate 2019- No [id number] 100mg Take 1 Univers 100 mg 2-12 - capsule by ity of capsule 00:00: 00:00 mouth 3 [place] 00 :00 (three) Medical times Branch daily as needed for Cough. naproxen Yes 550mg Take 1 Univer s sodium 9-24 tablet by ity of (ANAPROX 00:00: mouth 2 [place] DS) 550 mg 00 (two) Medical tablet times Branch daily with meals. methylPREDN Yes Take by Uni vers ISolone -24 mouth ity of (MEDROL, 00:00: SEE-INSTRU [place] as RANDY,) 4 mg 00 CTIONS. Medica l tablets follow Branch package directions naproxen 2019- No 550mg Take 1 Unive rs sodium -22 01-25 tablet by ity of (ANAPROX 00:00: 00:00 mouth 2 [place] DS) 550 mg 00 :00 (two) Medical tablet times Branch daily with meals. methylPREDN 2019- No Take by [place] ISolone -24 - mouth ity of (MEDROL, 00:00: 00:00 [place]-INSTRU [place],) 4 mg 00 :00 CTIONS. Medica l tablets follow Branch package directions citalopram Yes 40mg QD Take 40 mg M ethodi (CeleXA) 40 6-[address] [facility] tablet 00:00: daily. Hospit a 00 l acyclovir acyclovir No acyclovir [place] 200 mg 200 mg 200 mg Communi capsule capsule capsule ty TAKE 1 TAKE 1 TAKE 1 Hospita CAPSULE BY CAPSULE BY CAPSULE BY l MOUTH 5 MOUTH 5 MOUTH 5 Clinic s TIMES A DAY TIMES A DAY TIMES A FOR 5 DAYS FOR 5 DAYS DAY FOR 5 DAYS albuterol albuterol No albuterol [place] sulfate HFA sulfate HFA sulfate Communi 90 90 HFA 90 ty mcg/actuati mcg/actuati mcg/actuat Hospita on aerosol on aerosol ion l inhaler inhaler aerosol Clinic s INHALE 1 TO INHALE 1 TO inhaler 2 PUFFS BY 2 PUFFS BY INHALE 1 MOUTH FOUR MOUTH FOUR TO 2 PUFFS TIMES A DAY TIMES A DAY BY MOUTH NEEDED NEEDED FOUR TIMES FOR FOR A DAY WHEEZING WHEEZING NEEDED FOR WHEEZING amitriptyli amitriptyli No amitriptyl [place] ne 100 mg ne 100 mg ine 100 mg Communi tablet TAKE tablet TAKE tablet ty 1 TABLET BY 1 TABLET BY TAKE 1 Hospita MOUTH MOUTH TABLET BY l EVERYDAY AT EVERYDAY AT MOUTH Clinics BEDTIME BEDTIME EVERYDAY AT BEDTIME amoxicillin amoxicillin No 1 Q12H amoxicilli [place] [id number] [id number] Communi mg-potassiu mg-potassiu mg-potassi ty m m um Hospita clavulanate clavulanate clavulanat l 125 mg 125 mg e 125 mg Clinics tablet Take tablet Take tablet 1 tablet 1 tablet Take 1 every 12 every 12 tablet hours by hours by every 12 oral route oral route hours by for 10 for 10 oral route days. days. for 10 days. clonazepam clonazepam No clonazepam [place] 0.5 mg 0.5 mg 0.5 mg Communi tablet TAKE tablet TAKE tablet ty 1 TABLET BY 1 TABLET BY TAKE 1 Hospita MOUTH TWICE MOUTH TWICE TABLET BY l A DAY A DAY MOUTH Clinics TWICE A DAY escitalopra escitalopra No escitalopr [place] m 20 mg m 20 mg am 20 mg Com[facility] ni tablet TAKE tablet TAKE tablet ty 1 TABLET BY 1 TABLET BY TAKE 1 Hospita MOUTH EVERY MOUTH EVERY TABLET BY l DAY DAY MOUTH Clinics EVERY DAY ketoconazol ketoconazol No ketoconazo [place] e 2 % e 2 % le 2 % [facility]i shampoo shampoo shampoo ty APPLY APPLY APPLY Hospita TOPICALLY TOPICALLY TOPICALLY l TO AFFECTED TO AFFECTED TO C linics AREA AREA AFFECTED LATHER, LATHER, AREA LEAVE FOR 5 LEAVE FOR 5 LATHER, MINUTES & MINUTES & LEAVE FOR THEN RINSE THEN RINSE 5 MINUTES OFF ONCE OFF ONCE & THEN DAILY DAILY RINSE OFF ONCE DAILY ketorolac ketorolac No 1 Q8H ketorolac [place] 10 mg 10 mg 10 mg [facility] tablet Take tablet Take tablet ty 1 tablet 1 tablet Take 1 Hospi ta every 8 every 8 tablet l hours by hours by every 8 Clin ics oral route oral route hours by as needed. as needed. oral route as needed. ketorolac ketorolac No 1mL ketorolac [place] 30 mg/mL (1 30 mg/mL (1 30 mg/mL [facility] mL) mL) (1 mL) ty injection injection injection Hospita solution solution solution l Inject 1 mL Inject 1 mL Inject 1 Clinics by by mL by intramuscul intramuscul intramuscu ar route. ar route. lar route. losartan 50 losartan 50 No losartan [place] mg tablet mg tablet 50 mg Comm uni TAKE 1/2 TO TAKE 1/2 TO tablet ty 1 TABLET BY 1 TABLET BY TAKE 1/2 Hospita MOUTH ONCE MOUTH ONCE TO 1 l A DAY A DAY TABLET BY Clinics MOUTH ONCE A DAY methocarbam methocarbam No methocarba [place] ol 500 mg ol 500 mg mol 500 mg [facility] tablet TAKE tablet TAKE tablet ty 2 TABLETS 2 TABLETS TAKE 2 [facility] BY MOUTH 3 BY MOUTH 3 TABLETS BY l TIMES A DAY TIMES A DAY MOUTH 3 Clinics FOR 5 DAYS FOR 5 DAYS TIMES A DAY FOR 5 DAYS montelukast montelukast No montelukas [place] 10 mg 10 mg t 10 mg [facility] tablet TAKE tablet TAKE tablet ty 1 TABLET BY 1 TABLET BY TAKE 1 Hospita MOUTH EVERY MOUTH EVERY TABLET BY l DAY DAY MOUTH Clinics EVERY DAY amitriptyli amitriptyli No amitriptyl [place] ne 100 mg ne 100 mg ine 100 mg [facility] tablet TAKE tablet TAKE tablet ty 1 TABLET BY 1 TABLET BY TAKE 1 Hospita MOUTH MOUTH TABLET BY l EVERYDAY AT EVERYDAY AT MOUTH Clinics BEDTIME BEDTIME EVERYDAY AT BEDTIME omeprazole omeprazole No omeprazole [place] 40 mg 40 mg 40 mg [facility] capsule,del capsule,del capsule,de ty ayed ayed layed Hospita release release release l TAKE 1 TAKE 1 TAKE 1 Clinics CAPSULE BY CAPSULE BY CAPSULE BY MOUTH EVERY MOUTH EVERY MOUTH MORNING MORNING EVERY MORNING ondansetron ondansetron No 1 Q8H ondansetro [place] 4 mg 4 mg n 4 mg [facility] disintegrat disintegrat disintegra ty ing tablet ing tablet ting [facility] Place 1 Place 1 tablet l tablet tablet Place 1 Clinics every 8 every 8 tablet hours by hours by every 8 translingua translingua hours by l route as l route as translingu needed. needed. al route as needed. promethazin promethazin No promethazi [place] e 25 mg e 25 mg ne 25 mg Com[facility] ni tablet TAKE tablet TAKE tablet ty 1 TABLET BY 1 TABLET BY TAKE 1 Hospita MOUTH EVERY MOUTH EVERY TABLET BY l 8 HOURS 8 HOURS MOUTH Cl inics NEEDED FOR NEEDED FOR EVERY 8 NAUSEA NAUSEA HOURS NEEDED FOR NAUSEA clonazepam clonazepam No clonazepam [place] 0.5 mg 0.5 mg 0.5 mg [facility] tablet TAKE tablet TAKE tablet ty 1 TABLET BY 1 TABLET BY TAKE 1 Hospita MOUTH TWICE MOUTH TWICE TABLET BY l A DAY FOR A DAY FOR MOUTH Clin ics ANXIETY ANXIETY TWICE A DAY FOR ANXIETY docusate docusate No docusate Swe [place] sodium 100 sodium 100 sodium 100 [facility] mg capsule mg capsule mg capsule ty TAKE 1 TAKE 1 TAKE 1 Hospita CAPSULE BY CAPSULE BY CAPSULE BY l MOUTH TWICE MOUTH TWICE MOUTH Clinics A DAY FOR 2 A DAY FOR 2 TWICE A WEEKS WEEKS DAY FOR 2 WEEKS escitalopra escitalopra No escitalopr [place] m 20 mg m 20 mg am 20 mg [facility] ni tablet TAKE tablet TAKE tablet ty 1 TABLET BY 1 TABLET BY TAKE 1 Hospita MOUTH EVERY MOUTH EVERY TABLET BY l DAY IN THE DAY IN THE MOUTH Cl inics MORNING MORNING EVERY DAY IN THE MORNING hydroxyzine hydroxyzine No 1 TID hydroxyzin [place] HCl 25 mg HCl 25 mg e HCl 25 C [facility]i tablet Take tablet Take mg tablet ty 1 tablet 3 1 tablet 3 Take 1 H ospita times a day times a day tablet 3 l by oral by oral times a Clinic s route as route as day by needed for needed for oral route 10 days. 10 days. as needed for 10 days. ketoconazol ketoconazol No ketoconazo [place] e 2 % e 2 % le 2 % [facility] shampoo shampoo shampoo ty APPLY TO APPLY TO APPLY TO [facility] THE THE THE l AFFECTED AFFECTED AFFECTED Cli nics AREA(S), AREA(S), AREA(S), LATHER, LATHER, LATHER, LEAVE IN LEAVE IN LEAVE IN PLACE FOR [address] FOR MINUTES, MINUTES, 5 MINUTES, AND THEN AND THEN AND THEN RINSE OFF RINSE OFF RINSE OFF WITH WATER WITH WATER WITH WATER BY TOPICAL BY TOPICAL BY TOPICAL ROUTE ONCE ROUTE ONCE ROUTE ONCE DAILY DAILY DAILY losartan 50 losartan 50 No losartan [place] mg tablet mg tablet 50 mg Comm uni TAKE 1 TAKE 1 tablet ty TABLET BY TABLET BY TAKE 1 [facility] MOUTH EVERY MOUTH EVERY TABLET BY l DAY DAY MOUTH Clinics EVERY DAY Medrol Medrol No 1dose Q1D Medrol [place] (Randy) 4 mg (Randy) 4 mg pk(s) (Randy) 4 mg [facility] tablets in tablets in tablets in ty a dose pack a dose pack a dose Hospita Take 1 dose Take 1 dose pack Take l pk every pk every 1 dose pk Cl inics day by oral day by oral every day route as route as by oral directed. directed. route as directed. methocarbam methocarbam No methocarba [place] ol 500 mg ol 500 mg mol 500 mg [facility] tablet TAKE tablet TAKE tablet ty 1 TABLET BY 1 TABLET BY TAKE 1 Hospita MOUTH TWICE MOUTH TWICE TABLET BY l A DAY A DAY MOUTH Clinic s NEEDED FOR NEEDED FOR TWICE A MUSCLE MUSCLE DAY SPASM SPASM NEEDED FOR MUSCLE SPASM montelukast montelukast No 1 Q1D montelukas [place] 10 mg 10 mg t 10 mg [facility] tablet Take tablet Take tablet ty 1 tablet 1 tablet Take 1 Hospi ta every day every day tablet l by oral by oral every day Clin ics route for route for by oral 90 days. 90 days. route for 90 days. omeprazole omeprazole No omeprazole [place] 40 mg 40 mg 40 mg [facility] capsule,del capsule,del capsule,de ty ayed ayed layed Hospita release release release l TAKE 1 TAKE 1 TAKE 1 Clinics CAPSULE BY CAPSULE BY CAPSULE BY MOUTH EVERY MOUTH EVERY MOUTH DAY IN THE DAY IN THE EVERY DAY MORNING MORNING IN THE MORNING promethazin promethazin No promethazi [place] e 12.5 mg e 12.5 mg ne 12.5 mg [facility] tablet TAKE tablet TAKE tablet ty 1 TABLET BY 1 TABLET BY TAKE 1 Hospita MOUTH EVERY MOUTH EVERY TABLET BY l 8 HOURS 8 HOURS MOUTH Cl inics NEEDED FOR NEEDED FOR EVERY 8 SEVERE SEVERE HOURS NAUSEA NAUSEA NEEDED FOR SEVERE NAUSEA promethazin promethazin No promethazi [place] e 25 mg e 25 mg ne 25 mg [facility] ni tablet TAKE tablet TAKE tablet ty 1 TABLET BY 1 TABLET BY TAKE 1 Hospita MOUTH EVERY MOUTH EVERY TABLET BY l 8 HOURS 8 HOURS MOUTH Cl inics NEEDED FOR NEEDED FOR EVERY 8 NAUSEA NAUSEA HOURS NEEDED FOR NAUSEA topiramate topiramate No topiramate [place] 25 mg 25 mg 25 mg [facility] tablet TAKE tablet TAKE tablet ty 1 TABLET BY 1 TABLET BY TAKE 1 Hospita MOUTH MOUTH TABLET BY l EVERYDAY AT EVERYDAY AT MOUTH Clinics BEDTIME BEDTIME EVERYDAY AT BEDTIME triamcinolo triamcinolo No triamcinol [place] ne ne one Communi acetonide acetonide acetonide ty 0.1 % 0.1 % 0.1 % Hospita topical topical topical l cream APPLY cream APPLY cream Clinics A THIN A THIN APPLY A LAYER TO LAYER TO THIN LAYER THE THE TO THE AFFECTED AFFECTED AFFECTED AREA(S) BY AREA(S) BY AREA(S) BY TOPICAL TOPICAL TOPICAL ROUTE 2 ROUTE 2 ROUTE 2 TIMES PER TIMES PER TIMES PER DAY DAY DAY acyclovir acyclovir No acyclovir [place] 200 mg 200 mg 200 mg [facility] capsule capsule capsule ty TAKE 1 TAKE 1 TAKE 1 [facility]ospita CAPSULE BY CAPSULE BY CAPSULE BY l MOUTH 5 MOUTH 5 MOUTH 5 Clinic s TIMES A DAY TIMES A DAY TIMES A FOR 5 DAYS FOR 5 DAYS DAY FOR 5 DAYS albuterol albuterol No albuterol [place] sulfate HFA sulfate HFA sulfate [facility] 90 90 HFA 90 ty mcg/actuati mcg/actuati mcg/actuat Hospita on aerosol on aerosol ion l inhaler inhaler aerosol Clinic s INHALE 1 TO INHALE 1 TO inhaler 2 PUFFS BY 2 PUFFS BY INHALE 1 MOUTH FOUR MOUTH FOUR TO 2 PUFFS TIMES A DAY TIMES A DAY BY MOUTH NEEDED NEEDED FOUR TIMES FOR FOR A DAY WHEEZING WHEEZING NEEDED FOR WHEEZING amitriptyli amitriptyli No amitriptyl [place] ne 100 mg ne 100 mg ine 100 mg [facility] tablet TAKE tablet TAKE tablet ty 1 TABLET BY 1 TABLET BY TAKE 1 [facility]ospita MOUTH MOUTH TABLET BY l EVERYDAY AT EVERYDAY AT MOUTH Clinics BEDTIME BEDTIME EVERYDAY AT BEDTIME clonazepam clonazepam No clonazepam [place] 0.5 mg 0.5 mg 0.5 mg [facility] tablet TAKE tablet TAKE tablet ty 1 TABLET BY 1 TABLET BY TAKE 1 [facility]ospita MOUTH TWICE MOUTH TWICE TABLET BY l A DAY A DAY MOUTH Clinics TWICE A DAY docusate docusate No docusate Swe [place] sodium 100 sodium 100 sodium 100 [facility] mg capsule mg capsule mg capsule ty TAKE 1 TAKE 1 TAKE 1 [facility]ospita CAPSULE BY CAPSULE BY CAPSULE BY l MOUTH TWICE MOUTH TWICE MOUTH Clinics A DAY FOR 2 A DAY FOR 2 TWICE A WEEKS WEEKS DAY FOR 2 WEEKS escitalopra escitalopra No escitalopr [place] m 20 mg m 20 mg am 20 mg [facility] ni tablet TAKE tablet TAKE tablet ty 1 TABLET BY 1 TABLET BY TAKE 1 Hospita MOUTH EVERY MOUTH EVERY TABLET BY l DAY DAY MOUTH Clinics EVERY DAY hydroxyzine hydroxyzine No hydroxyzin [place] HCl 25 mg HCl 25 mg e HCl 25 C [facility] tablet TAKE tablet TAKE mg tablet ty 1 TABLET BY 1 TABLET BY TAKE 1 Hospita MOUTH THREE MOUTH THREE TABLET BY l TIMES A DAY TIMES A DAY MOUTH Clinics NEEDED NEEDED THREE FOR 10 DAYS FOR 10 DAYS TIMES A DAY NEEDED FOR 10 DAYS ketoconazol ketoconazol No ketoconazo [place] e 2 % e 2 % le 2 % [facility] shampoo shampoo shampoo ty APPLY APPLY APPLY [facility]ospita TOPICALLY TOPICALLY TOPICALLY l TO AFFECTED TO AFFECTED TO C linics AREA AREA AFFECTED LATHER, LATHER, AREA LEAVE FOR 5 LEAVE FOR 5 LATHER, MINUTES & MINUTES & LEAVE FOR THEN RINSE THEN RINSE 5 MINUTES OFF ONCE OFF ONCE & THEN DAILY DAILY RINSE OFF ONCE DAILY losartan 50 losartan 50 No losartan [place] mg tablet mg tablet 50 mg Comm uni TAKE 1/2 TO TAKE 1/2 TO tablet ty 1 TABLET BY 1 TABLET BY TAKE 1/2 Hospita MOUTH ONCE MOUTH ONCE TO 1 l A DAY A DAY TABLET BY Clinics MOUTH ONCE A DAY Medrol Medrol No 1dose Q1D Medrol [place] (Randy) 4 mg (Randy) 4 mg pk(s) (Randy) 4 mg [facility] tablets in tablets in tablets in ty a dose pack a dose pack a dose Hospita Take 1 dose Take 1 dose pack Take l pk every pk every 1 dose pk Cl inics day by oral day by oral every day route as route as by oral directed. directed. route as directed. methocarbam methocarbam No 2 TID methocarba [place] ol 500 mg ol 500 mg mol 500 mg [facility] tablet Take tablet Take tablet ty 2 tablets 3 2 tablets 3 Take 2 Hospita times a day times a day tablets 3 l by oral by oral times a Clinic s route for 5 route for 5 day by days. days. oral route for 5 days. methylpredn methylpredn No methylpred [place] isolone 4 isolone 4 nisolone 4 [facility] mg tablet mg tablet mg tablet ty TAKE 6 TAKE 6 TAKE 6 Hospita TABLETS ON TABLETS ON TABLETS ON l DAY 1 DAY 1 DAY 1 Cli nics DIRECTED ON DIRECTED ON DIRECTED PACKAGE AND PACKAGE AND ON PACKAGE DECREASE BY DECREASE BY AND 1 TAB EACH 1 TAB EACH DECREASE DAY FOR A DAY FOR A BY 1 TAB TOTAL OF 6 TOTAL OF 6 EACH DAY DAYS DAYS FOR A TOTAL OF 6 DAYS montelukast montelukast No montelukas [place] 10 mg 10 mg t 10 mg [facility] tablet TAKE tablet TAKE tablet ty 1 TABLET BY 1 TABLET BY TAKE 1 Hospita MOUTH EVERY MOUTH EVERY TABLET BY l DAY DAY MOUTH Clinics EVERY DAY omeprazole omeprazole No omeprazole [place] 40 mg 40 mg 40 mg [facility] capsule,del capsule,del capsule,de ty ayed ayed layed Hospita release release release l TAKE 1 TAKE 1 TAKE 1 Clinics CAPSULE BY CAPSULE BY CAPSULE BY MOUTH EVERY MOUTH EVERY MOUTH DAY IN THE DAY IN THE EVERY DAY MORNING MORNING IN THE MORNING promethazin promethazin No promethazi [place] e 12.5 mg e 12.5 mg ne 12.5 mg [facility] tablet TAKE tablet TAKE tablet ty 1 TABLET BY 1 TABLET BY TAKE 1 Hospita MOUTH EVERY MOUTH EVERY TABLET BY l 8 HOURS 8 HOURS MOUTH Cl inics NEEDED FOR NEEDED FOR EVERY 8 SEVERE SEVERE HOURS NAUSEA NAUSEA NEEDED FOR SEVERE NAUSEA promethazin promethazin No promethazi [place] e 25 mg e 25 mg ne 25 mg [facility] ni tablet TAKE tablet TAKE tablet ty 1 TABLET BY 1 TABLET BY TAKE 1 Hospita MOUTH EVERY MOUTH EVERY TABLET BY l 8 HOURS 8 HOURS MOUTH Cl inics NEEDED FOR NEEDED FOR EVERY 8 NAUSEA NAUSEA HOURS NEEDED FOR NAUSEA topiramate topiramate No topiramate [place] 25 mg 25 mg 25 mg [facility] tablet TAKE tablet TAKE tablet ty 1 TABLET BY 1 TABLET BY TAKE 1 [facility]ospita MOUTH MOUTH TABLET BY l EVERYDAY AT EVERYDAY AT MOUTH Clinics BEDTIME BEDTIME EVERYDAY AT BEDTIME triamcinolo triamcinolo No triamcinol [place] ne ne one Communi acetonide acetonide acetonide ty 0.1 % 0.1 % 0.1 % Hospita topical topical topical l cream APPLY cream APPLY cream Clinics THIN COAT THIN COAT APPLY THIN TO AFFECTED TO AFFECTED COAT TO AREA TWICE AREA TWICE AFFECTED A DAY A DAY AREA TWICE A DAY Zithromax Zithromax No Zithromax [place] Z-Randy 250 Z-Randy 250 Z-Randy 250 [facility] mg tablet mg tablet mg tablet ty TAKE 2 TAKE 2 TAKE 2 Hospita TABLETS TABLETS TABLETS l (500 MG) BY (500 MG) BY (500 MG) Clinics ORAL ROUTE ORAL ROUTE BY ORAL ONCE DAILY ONCE DAILY ROUTE ONCE FOR 1 DAY FOR 1 DAY DAILY FOR THEN 1 THEN 1 1 DAY THEN TABLET (250 TABLET (250 1 TABLET MG) BY ORAL MG) BY ORAL (250 MG) ROUTE ONCE ROUTE ONCE BY ORAL DAILY FOR 4 DAILY FOR 4 ROUTE ONCE DAYS DAYS DAILY FOR 4 DAYS acyclovir acyclovir No acyclovir [place] 200 mg 200 mg 200 mg [facility] capsule capsule capsule ty TAKE 1 TAKE 1 TAKE 1 [facility]ospita CAPSULE BY CAPSULE BY CAPSULE BY l MOUTH 5 MOUTH 5 MOUTH 5 Clinic s TIMES A DAY TIMES A DAY TIMES A FOR 5 DAYS FOR 5 DAYS DAY FOR 5 DAYS albuterol albuterol No albuterol [place] sulfate HFA sulfate HFA sulfate [facility]i 90 90 HFA 90 ty mcg/actuati mcg/actuati mcg/actuat Hospita on aerosol on aerosol ion l inhaler inhaler aerosol Clinic s INHALE 1 TO INHALE 1 TO inhaler 2 PUFFS BY 2 PUFFS BY INHALE 1 MOUTH FOUR MOUTH FOUR TO 2 PUFFS TIMES A DAY TIMES A DAY BY MOUTH NEEDED NEEDED FOUR TIMES FOR FOR A DAY WHEEZING WHEEZING NEEDED FOR WHEEZING amitriptyli amitriptyli No amitriptyl [place] ne 100 mg ne 100 mg ine 100 mg [facility] tablet TAKE tablet TAKE tablet ty 1 TABLET BY 1 TABLET BY TAKE 1 [facility]ospita MOUTH MOUTH TABLET BY l EVERYDAY AT EVERYDAY AT MOUTH Clinics BEDTIME BEDTIME EVERYDAY AT BEDTIME amoxicillin amoxicillin No amoxicilli [place] [id number] Communi mg-potassiu mg-potassiu mg-potassi ty m m um Hospita clavulanate clavulanate clavulanat l 125 mg 125 mg e 125 mg Clinics tablet TAKE tablet TAKE tablet 1 TABLET BY 1 TABLET BY TAKE 1 MOUTH EVERY MOUTH EVERY TABLET BY 12 HOURS 12 HOURS MOUTH FOR 7 DAYS FOR 7 DAYS EVERY 12 HOURS FOR 7 DAYS clonazepam clonazepam No clonazepam [place] 0.5 mg 0.5 mg 0.5 mg [facility] tablet TAKE tablet TAKE tablet ty 1 TABLET BY 1 TABLET BY TAKE 1 [facility]ospita MOUTH TWICE MOUTH TWICE TABLET BY l A DAY A DAY MOUTH Clinics TWICE A DAY docusate docusate No docusate Swe [place] sodium 100 sodium 100 sodium 100 [facility] mg capsule mg capsule mg capsule ty TAKE 1 TAKE 1 TAKE 1 [facility]ospita CAPSULE BY CAPSULE BY CAPSULE BY l MOUTH TWICE MOUTH TWICE MOUTH Clinics A DAY FOR 2 A DAY FOR 2 TWICE A WEEKS WEEKS DAY FOR 2 WEEKS escitalopra escitalopra No escitalopr [place] m 20 mg m 20 mg am 20 mg [facility] ni tablet TAKE tablet TAKE tablet ty 1 TABLET BY 1 TABLET BY TAKE 1 [facility]ospita MOUTH EVERY MOUTH EVERY TABLET BY l DAY DAY MOUTH Clinics EVERY DAY fluconazole fluconazole No fluconazol [place] 150 mg 150 mg e 150 mg [facility] tablet TAKE tablet TAKE tablet ty 1 TABLET BY 1 TABLET BY TAKE 1 [facility]ospita MOUTH EVERY MOUTH EVERY TABLET BY l 72 HOURS 72 HOURS MOUTH Clinic s FOR 6 DAYS FOR 6 DAYS EVERY 72 HOURS FOR 6 DAYS hydroxyzine hydroxyzine No hydroxyzin [place] HCl 25 mg HCl 25 mg e HCl 25 C [facility] tablet TAKE tablet TAKE mg tablet ty 1 TABLET BY 1 TABLET BY TAKE 1 Hospita MOUTH THREE MOUTH THREE TABLET BY l TIMES A DAY TIMES A DAY MOUTH Clinics NEEDED NEEDED THREE FOR 10 DAYS FOR 10 DAYS TIMES A DAY NEEDED FOR 10 DAYS ketoconazol ketoconazol No ketoconazo [place] e 2 % e 2 % le 2 % Communi shampoo shampoo shampoo ty APPLY APPLY APPLY Hospita TOPICALLY TOPICALLY TOPICALLY l TO AFFECTED TO AFFECTED TO C linics AREA AREA AFFECTED LATHER, LATHER, AREA LEAVE FOR 5 LEAVE FOR 5 LATHER, MINUTES & MINUTES & LEAVE FOR THEN RINSE THEN RINSE 5 MINUTES OFF ONCE OFF ONCE & THEN DAILY DAILY RINSE OFF ONCE DAILY losartan 50 losartan 50 No losartan [place] mg tablet mg tablet 50 mg Comm uni TAKE 1/2 TO TAKE 1/2 TO tablet ty 1 TABLET BY 1 TABLET BY TAKE 1/2 Hospita MOUTH ONCE MOUTH ONCE TO 1 l A DAY A DAY TABLET BY Clinics MOUTH ONCE A DAY Medrol Medrol No 1dose Q1D Medrol [place] (Randy) 4 mg (Randy) 4 mg pk(s) (Randy) 4 mg [facility] tablets in tablets in tablets in ty a dose pack a dose pack a dose Hospita Take 1 dose Take 1 dose pack Take l pk every pk every 1 dose pk Cl inics day by oral day by oral every day route as route as by oral directed. directed. route as directed. methocarbam methocarbam No methocarba [place] ol 500 mg ol 500 mg mol 500 mg [facility] tablet TAKE tablet TAKE tablet ty 2 TABLETS 2 TABLETS TAKE 2 [facility] BY MOUTH 3 BY MOUTH 3 TABLETS BY l TIMES A DAY TIMES A DAY MOUTH 3 Clinics FOR 5 DAYS FOR 5 DAYS TIMES A DAY FOR 5 DAYS methylpredn methylpredn No methylpred [place] isolone 4 isolone 4 nisolone 4 Communi mg tablet mg tablet mg tablet ty TAKE 6 TAKE 6 TAKE 6 Hospita TABLETS ON TABLETS ON TABLETS ON l DAY 1 DAY 1 DAY 1 Cli nics DIRECTED ON DIRECTED ON DIRECTED PACKAGE AND PACKAGE AND ON PACKAGE DECREASE BY DECREASE BY AND 1 TAB EACH 1 TAB EACH DECREASE DAY FOR A DAY FOR A BY 1 TAB TOTAL OF 6 TOTAL OF 6 EACH DAY DAYS DAYS FOR A TOTAL OF 6 DAYS montelukast montelukast No montelukas [place] 10 mg 10 mg t 10 mg [facility] tablet TAKE tablet TAKE tablet ty 1 TABLET BY 1 TABLET BY TAKE 1 Hospita MOUTH EVERY MOUTH EVERY TABLET BY l DAY DAY MOUTH Clinics EVERY DAY omeprazole omeprazole No omeprazole [place] 40 mg 40 mg 40 mg [facility] capsule,del capsule,del capsule,de ty ayed ayed layed Hospita release release release l TAKE 1 TAKE 1 TAKE 1 Clinics CAPSULE BY CAPSULE BY CAPSULE BY MOUTH EVERY MOUTH EVERY MOUTH DAY IN THE DAY IN THE EVERY DAY MORNING MORNING IN THE MORNING prednisone prednisone No 1 BID prednisone [place] 20 mg 20 mg 20 mg [facility] tablet Take tablet Take tablet ty 1 tablet 1 tablet Take 1 Hospi ta twice a day twice a day tablet l by oral by oral twice a Clinic s route for 5 route for 5 day by days. days. oral route for 5 days. promethazin promethazin No promethazi [place] e 12.5 mg e 12.5 mg ne 12.5 mg [facility] tablet TAKE tablet TAKE tablet ty 1 TABLET BY 1 TABLET BY TAKE 1 Hospita MOUTH EVERY MOUTH EVERY TABLET BY l 8 HOURS 8 HOURS MOUTH Cl inics NEEDED FOR NEEDED FOR EVERY 8 SEVERE SEVERE HOURS NAUSEA NAUSEA NEEDED FOR SEVERE NAUSEA promethazin promethazin No promethazi [place] e 25 mg e 25 mg ne 25 mg [facility] ni tablet TAKE tablet TAKE tablet ty 1 TABLET BY 1 TABLET BY TAKE 1 Hospita MOUTH EVERY MOUTH EVERY TABLET BY l 8 HOURS 8 HOURS MOUTH Cl inics NEEDED FOR NEEDED FOR EVERY 8 NAUSEA NAUSEA HOURS NEEDED FOR NAUSEA topiramate topiramate No topiramate [place] 25 mg 25 mg 25 mg [facility] tablet TAKE tablet TAKE tablet ty 1 TABLET BY 1 TABLET BY TAKE 1 Hospita MOUTH MOUTH TABLET BY l EVERYDAY AT EVERYDAY AT MOUTH Clinics BEDTIME BEDTIME EVERYDAY AT BEDTIME triamcinolo triamcinolo No triamcinol [place] ne ne one Communi acetonide acetonide acetonide ty 0.1 % 0.1 % 0.1 % Hospita topical topical topical l cream APPLY cream APPLY cream Clinics THIN COAT THIN COAT APPLY THIN TO AFFECTED TO AFFECTED COAT TO AREA TWICE AREA TWICE AFFECTED A DAY A DAY AREA TWICE A DAY triamcinolo triamcinolo No 40mg triamcinol [place] ne ne one Communi acetonide acetonide acetonide ty 40 mg/mL 40 mg/mL 40 mg/mL [facility] suspension suspension suspension l for for for Clinics injection injection injection Take 40 mg Take 40 mg Take 40 mg by by by injection injection injection route. route. route. Zithromax Zithromax No Zithromax [place] Z-Randy 250 Z-Randy 250 Z-Randy 250 Communi mg tablet mg tablet mg tablet ty TAKE 2 TAKE 2 TAKE 2 Hospita TABLETS TABLETS TABLETS l (500 MG) BY (500 MG) BY (500 MG) Clinics ORAL ROUTE ORAL ROUTE BY ORAL ONCE DAILY ONCE DAILY ROUTE ONCE FOR 1 DAY FOR 1 DAY DAILY FOR THEN 1 THEN 1 1 DAY THEN TABLET (250 TABLET (250 1 TABLET MG) BY ORAL MG) BY ORAL (250 MG) ROUTE ONCE ROUTE ONCE BY ORAL DAILY FOR 4 DAILY FOR 4 ROUTE ONCE DAYS DAYS DAILY FOR 4 DAYS Vital Signs Vital Name Observation Time Observation Value Comments Source BP Diastolic 2023-03-16 00:00:00 89 mm[Hg] [facility] Height 2023-03-16 00:00:00 67.5 [in_i] [facility] BP Systolic 2023-03-16 00:00:00 121 mm[Hg] [facility] s BMI (Body Mass 2023-03-16 00:00:00 32.3 kg/m2 [facility] Body Weight 2023-03-16 00:00:00 3353.6 [oz_av] [facility] s BP Diastolic 2023-01-18 00:00:00 75 mm[Hg] [facility] s Height 2023-01-18 00:00:00 67.5 [in_i] [facility] s BMI (Body Mass 2023-01-18 00:00:00 32.4 kg/m2 [facility] BP Systolic 2023-01-18 00:00:00 124 mm[Hg] [facility] s Body Weight 2023-01-18 00:00:00 3360 [oz_av] [facility] s BP Diastolic 2022-11-16 00:00:00 80 mm[Hg] [facility] Height 2022-11-16 00:00:00 67.5 [in_i] [facility] s BMI (Body Mass 2022-11-16 00:00:00 32.7 kg/m2 [facility]) [facility] BP Systolic 2022-11-16 00:00:00 126 mm[Hg] [facility] Body Weight 2022-11-16 00:00:00 3392 [oz_av] [facility] BP Diastolic 2022-09-22 00:00:00 66 mm[Hg] [facility] Height 2022-09-22 00:00:00 67.5 [in_i] [facility] s BMI (Body Mass 2022-09-22 00:00:00 14.2 kg/m2 [facility] s BP Systolic 2022-09-22 00:00:00 121 mm[Hg] [facility] s Body Weight 2022-09-22 00:00:00 1472 [oz_av] [facility] s Systolic blood 2021-11-09 14:07:00 124 mm[Hg] [facility] Diastolic blood 2021-11-09 14:07:00 73 mm[Hg] [facility] Heart rate 2021-11-09 14:07:00 87 /min [facility] Body temperature 2021-11-09 14:07:00 36.78 Deanna [facility] Respiratory rate 2021-11-09 14:07:00 14 /min [facility] Body height 2021-11-09 14:07:00 170.2 cm [facility] Body weight 2021-11-09 14:07:00 113.399 kg [facility] BMI 2021-11-09 14:07:00 39.16 kg/m2 [facility] Oxygen saturation in 2021-11-09 14:07:00 96 /min [facility] [email or web address] [facility] P[facility] oximetry [facility] Systolic blood 2021-09-18 16:41:00 141 mm[Hg] [facility] Diastolic blood 2021-09-18 16:41:00 93 mm[Hg] [facility] Heart rate 2021-09-18 16:41:00 103 /min [facility] Body temperature 2021-09-18 16:41:00 36.78 Deanna [facility] Respiratory rate 2021-09-18 16:41:00 18 /min [facility] Body weight 2021-09-18 16:41:00 106.595 kg [facility] BMI 2021-09-18 16:41:00 36.81 kg/m2 [facility] Oxygen saturation in 2021-09-18 16:41:00 98 /min [facility] blood by [email or web address] [facility] Pulse oximetry [facility] Systolic blood 2021-07-30 18:36:00 121 mm[Hg] [facility] Diastolic blood 2021-07-30 18:36:00 86 mm[Hg] [facility] Heart rate 2021-07-30 18:31:00 87 /min [facility] Body temperature 2021-07-30 18:31:00 36.78 Deanna [facility] Respiratory rate 2021-07-30 18:31:00 18 /min [facility] Body height 2021-07-30 18:31:00 170.2 cm [facility] Body weight 2021-07-30 18:31:00 106.595 kg [facility] BMI 2021-07-30 18:31:00 36.81 kg/m2 [facility] Oxygen saturation in 2021-07-30 18:31:00 97 /min [facility] blood by [place] [facility] Pulse oxim[facility] Systolic blood 2021-04-08 16:55:00 126 mm[Hg] [facility] Diastolic blood 2021-04-08 16:55:00 86 mm[Hg] [facility] Heart rate 2021-04-08 16:50:00 79 /min [facility] Body temperature 2021-04-08 16:50:00 36.83 Deanna [facility] Respiratory rate 2021-04-08 16:50:00 18 /min [facility] Body height 2021-04-08 16:50:00 170.2 cm [facility] Body weight 2021-04-08 16:50:00 106.595 kg [facility] BMI 2021-04-08 16:50:00 36.81 kg/m2 [facility] Oxygen saturation in 2021-04-08 16:50:00 95 /min [facility] by [place] [facility] Oxygen saturation in 2021-02-25 18:56:00 94 /min [facility] [place] [facility] Systolic blood 2021-02-25 18:56:00 108 mm[Hg] [facility] Diastolic blood 2021-02-25 18:56:00 68 mm[Hg] [facility] Heart rate 2021-02-25 18:56:00 67 /min [facility] Respiratory rate 2021-02-25 18:56:00 15 /min [facility] Body temperature 2021-02-25 18:31:00 36.44 Deanna [facility] Body height 2021-02-24 19:33:00 170.2 cm [facility] Body weight 2021-02-24 19:33:00 110.7 kg [facility] BMI 2021-02-24 19:33:00 38.21 kg/m2 [facility] ty of [facility] Systolic blood 2021-02-25 18:56:00 108 mm[Hg] Univer sity of pressure [facility] Diastolic blood 2021-02-25 18:56:00 68 mm[Hg] Unive rsity of [facility] Heart rate 2021-02-25 18:56:00 67 /min [facility] Respiratory rate 2021-02-25 18:56:00 15 /min Univ [facility] Oxygen saturation in 2021-02-25 18:56:00 94 /min [facility] Arterial blood by [facility] Pulse oximetry Branch Body temperature 2021-02-25 18:31:00 36.44 Deanna [facility] Body height 2021-02-24 19:33:00 170.2 cm [facility] Body weight 2021-02-24 19:33:00 110.7 kg [facility] BMI 2021-02-24 19:33:00 38.21 kg/m2 Universi ty of [facility] Systolic blood 2021-02-04 21:00:00 116 mm[Hg] Univer sity of pressure [facility] Diastolic blood 2021-02-04 21:00:00 76 mm[Hg] Unive rsity of pressure [facility] Heart rate 2021-02-04 21:00:00 68 /min [facility] Body temperature 2021-02-04 21:00:00 37.22 Deanna [facility] Respiratory rate 2021-02-04 21:00:00 19 /min [facility] Body weight 2021-02-04 17:46:00 108.863 kg [facility] BMI 2021-02-04 17:46:00 37.58 kg/m2 [facility] Oxygen saturation in 2021-02-04 17:46:00 100 /min [facility] by [place] [employer] [facility] Pulse oxim[facility] Branch Systolic blood 2020-11-25 14:13:03 118 mm[Hg] [facility] Diastolic blood 2020-11-25 14:13:03 78 mm[Hg] [facility] Heart rate 2020-11-25 14:13:03 64 /min [facility] Respiratory rate 2020-11-25 14:13:03 16 /min [facility] Oxygen saturation in 2020-11-25 14:13:03 95 /min [facility] Arterial blood by [facility] rama Pulse oximetry Branch Body temperature 2020-11-25 11:29:00 37.11 Deanna [facility] Body weight 2020-11-25 11:28:00 108.863 kg [facility] BMI 2020-11-25 11:28:00 37.58 kg/m2 [facility] Systolic blood 2020-01-24 21:08:00 127 mm[Hg] [facility] Diastolic blood 2020-01-24 21:08:00 81 mm[Hg] [facility] Heart rate 2020-01-24 21:08:00 66 /min [facility] Body temperature 2020-01-24 21:08:00 36.28 Deanna [facility] Respiratory rate 2020-01-24 21:08:00 18 /min [facility] Oxygen saturation in 2020-01-24 21:08:00 95 /min [facility] blood by [place] [employer] [facility] Pulse oxim[facility] Branch Body height 2020-01-24 13:31:00 170.2 cm [facility] Body weight 2020-01-23 08:02:00 108.138 kg [facility] BMI 2020-01-23 08:02:00 37.33 kg/m2 Universi ty [facility] Systolic blood 2020-01-24 21:08:00 127 mm[Hg] Univer [facility]ity of pressure [facility] Diastolic blood 2020-01-24 21:08:00 81 mm[Hg] Unive rsity of pressure [facility] Heart rate 2020-01-24 21:08:00 66 /min Universi [facility] [place] Body temperature 2020-01-24 21:08:[address] [facility] Respiratory rate 2020-01-24 21:08:00 18 /min [facility] O[facility] saturation in 2020-01-24 21:08:00 95 /min [facility] Arterial blood by [facility] Pulse oximetry Branch Body height 2020-01-24 13:31:00 170.2 cm [facility] [place] Body weight 2020-01-23 08:02:00 108.138 kg [facility] BMI 2020-01-23 08:02:00 37.33 kg/m2 [facility] Systolic blood 2022-06-17 17:12:00 130 mm[Hg] Method [facility] pressure Diastolic blood 2022-06-17 17:12:00 82 mm[Hg] [facility] pressure Heart rate 2022-06-17 17:12:00 96 /min [facility] Body temperature 2022-06-17 17:12:00 36.44 Deanna [facility] Respiratory rate 2022-06-17 17:12:00 16 /min [facility] Body height 2022-06-17 17:12:00 170.2 cm [facility] Body weight 2022-06-17 17:12:00 103.647 kg [facility] BMI 2022-06-17 17:12:00 35.79 kg/m2 [facility] Oxygen saturation in 2022-06-17 17:12:00 95 /min [facility] Arterial blood by Pulse oximetry Procedures Procedure Date / Time Performing Clinician Source Performed CBC WITH PLATELET AND 2022-05-24 11:32:00 Finn Ngo [facility] DIFFERENTIAL BASIC METABOLIC PANEL 2022-05-24 11:32:00 Huber [facility] MAGNESIUM LEVEL 2022-05-24 11:32:00 [facility] ospital PHOSPHORUS LEVEL 2022-05-24 11:32:00 [facility] ESTIMATED GFR 2022-05-24 11:32:00 [facility] ospital ZZCOVID-19 ANTI-SPIKE IGG 2022-05-23 12:18:00 Everett Ziegler [facility] ANTIBODY TITER Porfirio ZZCOVID-19 SEROLOGY 2022-05-23 12:18:00 Toney [facility] PATIENT SURVEILLANCE [facility] BASIC METABOLIC PANEL 2022-05-23 11:10:00 [facility] CBC WITH PLATELET AND 2022-05-23 11:10:00 [facility] DIFFERENTIAL PHOSPHORUS LEVEL 2022-05-23 11:10:00 [facility] MAGNESIUM LEVEL 2022-05-23 11:10:00 [facility] ospital ESTIMATED GFR 2022-05-23 11:10:00 [facility] ospital FL UGI W OR WO KUB 2022-05-22 23:43:30 [facility] CBC WITH PLATELET AND 2022-05-22 09:52:00 [facility] DIFFERENTIAL BASIC METABOLIC PANEL 2022-05-22 09:52:00 [facility] MAGNESIUM LEVEL 2022-05-22 09:52:00 [facility] ospital PHOSPHORUS LEVEL 2022-05-22 09:52:00 [facility] ESTIMATED GFR 2022-05-22 09:52:00 [facility] ospital CBC WITH PLATELET AND 2022-05-21 18:48:00 [facility] DIFFERENTIAL BASIC METABOLIC PANEL 2022-05-21 18:48:00 [facility] ESTIMATED GFR 2022-05-21 18:48:00 [facility] ospital URINE CULTURE 2022-05-21 17:50:00 [facility] ospital URINALYSIS SCREEN AND 2022-05-21 17:50:00 [facility] MICROSCOPY, WITH REFLEX TO CULTURE SURGICAL PATHOLOGY REQUEST 2022-05-21 14:23:00 [facility] RI AN ELECTIVE 2022-05-21 12:39:00 Bob Asher [facility] spital ENDOTRACHEAL AIRWAY GASTROENTEROSTOMY, 2022-05-21 12:30:00 [facility] TASHA-EN-Y, LAPAROSCOPIC, WITH INTRAOPERATIVE ENDOSCOPY POC GLUCOSE 2022-05-21 11:49:00 [facility] ospital ABO AND RH CONFIRMATION BY 2022-05-21 11:45:00 [facility] PROTOCOL PARTIAL THROMBOPLASTIN 2022-05-21 11:45:00 [facility] TIME (PTT) PROTHROMBIN TIME WITH INR 2022-05-21 11:45:00 [facility] MAGNESIUM LEVEL 2022-05-21 11:45:00 [facility] PHOSPHORUS LEVEL 2022-05-21 11:45:00 [facility] POC , URINE 2022-05-21 11:33:08 [facility] 2022-05-18 14:37:00 [facility] RT-PCR FL UGI W OR WO KUB 2022-05-14 18:46:00 [facility] CBC WITH PLATELET AND 2022-05-13 15:31:00 [facility] DIFFERENTIAL COMPREHENSIVE METABOLIC 2022-05-13 15:31:00 [facility] PANEL HEMOGLOBIN A1C 2022-05-13 15:31:00 [facility] TYPE AND SCREEN 2022-05-13 15:31:00 Claudia Monique ospital ESTIMATED GFR 2022-05-13 15:31:00 [facility] ospital ECG PRE/POST OP 2022-05-13 14:45:15 Finn Ngo H ospital XR SHOULDER 2+ VW RIGHT 2021-11-09 14:44:00 Jhon [facility] RAPID INFLUENZA A/B 2021-09-18 17:24:00 Maxwell Tripp [facility] CONSENT/REFUSAL FOR 2021-09-18 16:35:16 Doctor Unassdavid, [facility] DIAGNOSIS AND TREATMENT [facility] COLONOSCOPY (ENDO) 2021-02-25 18:09:48 Val Wanda [facility] COLONOSCOPY (ENDO) 2021-02-25 18:09:48 Val [facility] COLONOSCOPY 2021-02-25 17:59:00 Geraldo Meredith [facility] CONSENT/REFUSAL FOR 2021-02-24 17:50:29 Doctor Unassdavid, [facility] DIAGNOSIS AND TREATMENT [facility] CONSENT/REFUSAL FOR 2021-02-24 17:50:29 Doctor Unassigned, [facility] DIAGNOSIS AND TREATMENT [place] [facility] ASSIGNMENT OF BENEFITS 2021-02-24 17:50:18 Doctor Unassigned, Un [facility] ASSIGNMENT OF BENEFITS 2021-02-24 17:50:18 Doctor Unassigned, [facility] [place] EXTERNAL PROVIDER RECORDS 2021-02-23 05:01:00 Doctor Mikki, [facility] [place] EXTERNAL PROVIDER RECORDS 2021-02-23 05:01:00 Doctor Unatoro, [facility] CT ABDOMEN PELVIS W 2021-02-04 19:37:10 Nicko Lloyd [facility] CONTRAST [facility] POCT TEST 2021-02-04 18:10:00 Nicko Lloyd [facility] LIPASE 2021-02-04 18:09:00 Nicko Lloyd [place] [facility] COMP. METABOLIC PANEL 2021-02-04 18:09:00 Nicko Lloyd [facility] ([id number]) [facility] [place] CBC WITH DIFF 2021-02-04 18:09:00 Nicko Lloyd [place] [facility] URINALYSIS 2021-02-04 18:09:00 Nicko Lloyd [place] [facility] NOTICE OF PRIVACY 2021-02-04 17:33:38 Doctor Unassigned, [facility] CONSENT/REFUSAL FOR 2021-02-04 17:30:05 Doctor Unassdavid, [facility] DIAGNOSIS AND TREATMENT [facility] ASSIGNMENT OF BENEFITS 2020-12-16 21:29:23 [facility]EL[facility] W 2020-11-25 12:24:26 Sharri Sanchez [facility] CONTRAST [facility] POCT TEST 2020-11-25 12:13:00 Sharri Sanchez [facility] URINALYSIS 2020-11-25 11:57:00 Sharri Sanchez [facility] LIPASE 2020-11-25 11:34:00 Sharri Sanchez [facility] COMP. METABOLIC PANEL 2020-11-25 11:34:00 Sharri Sanchez [facility] ([id number]) [facility] CBC WITH DIFF 2020-11-25 11:34:00 Sharri Sanchez [facility] NOTICE OF PRIVACY 2020-11-25 11:17:13 Doctor Mikki, [facility] CONSENT/REFUSAL FOR 2020-11-25 11:17:01 Doctor Mikki, [facility] DIAGNOSIS AND TREATMENT [facility] EGD (ENDO) 2020-01-24 15:58:15 Wanda Neal [facility] BASIC METABOLIC PANEL (NA, 2020-01-22 09:24:00 Patti Nazario [facility] K, CL, CO2, GLUCOSE, BUN, Medica l Branch CREATININE, CA) CBC WITH DIFFERENTIAL 2020-01-22 09:24:00 [facility]UKOC[facility] 2020-01-22 05:00:00 Patti Nazario [facility] CLOSTRIDIUM DIFFICILE 2020-01-22 05:00:00 [facility] LACTIC ACID WHOLE BLOOD 2020-01-21 22:17:00 Patti Nazario [facility] CT ABDOMEN PELVIS W 2020-01-21 16:24:30 Nicko Lloyd [facility] CONTRAST [facility] XR CHEST 1 VW COVID 2020-01-21 15:22:57 Nicko Lloyd [facility] URINALYSIS 2020-01-21 15:11:00 Nicko Lloyd [facility] URINE CULTURE 2020-01-21 15:11:00 Nicko Lloyd [facility] POCT TEST 2020-01-21 15:11:00 Nicko Lloyd [facility] LIPASE 2020-01-21 15:09:00 Nicko Lloyd [facility] MAGNESIUM 2020-01-21 15:09:00 Patti Nazario [facility] HEPATIC FUNCTION PANEL 2020-01-21 15:09:00 Nicko Lloyd [facility] ([id number]) (ALB,T.PRO,BILI [facility] T,BU/BC,ALT,AST,ALK PHOS) BASIC METABOLIC PANEL (NA, 2020-01-21 15:09:00 Nicko Lloyd [facility] K, CL, CO2, GLUCOSE, BUN, Medica l Branch CREATININE, CA) CBC WITH DIFFERENTIAL 2020-01-21 15:08:00 Nicko Lloyd [facility] COVID-19 (ID NOW RAPID 2020-01-21 15:08:00 Nicko Lloyd [facility] TESTING) Medical Branch NOTICE OF PRIVACY 2020-01-21 14:22:25 Doctor Unagisseligned, [facility] PRACTICES [facility] [place] CONSENT/REFUSAL FOR 2020-01-21 14:22:15 Doctor Unatoro, [facility] DIAGNOSIS AND TREATMENT [place] [facility] Ankle Arthroscopy/surgery 2010-08-01 00:00:00 [facility] Gastric Bypass for [facility] Laparoscopic Sleeve [place] [facility] Clinics Cholecystectomy [facility] Plan of Care Planned Activity Planned Date Details Comments Source Future Scheduled Test 2023-03-17 HEPATITIS B VACCINES [facility] 14:20:21 (1 of 3 - 3-dose series) [code = HEPATITIS B VACCINES (1 of 3 - 3-dose series)] Future Scheduled Test 2023-03-17 COVID-19 VACCINE (#1) [facility] 14:20:21 [code = COVID-19 VACCINE (#1)] Future Scheduled Test 2023-03-17 Pneumococcal Vaccine: [facility] 14:20:21 Pediatrics (0 to 5 Years) and At-Risk Patients (6 to 64 Years) (1 - PCV) [code = Pneumococcal Vaccine: Pediatrics (0 to 5 Years) and At-Risk Patients (6 to 64 Years) (1 - PCV)] Future Scheduled Test 2023-03-17 Hepatitis C screening [facility] 14:20:21 (procedure) [code = 514998257] Future Scheduled Test 2023-03-17 Screening for [facility] 14:20:21 malignant neoplasm of cervix (procedure) [code = 417842602] Future Scheduled Test 2023-03-17 BREAST CANCER [facility] 14:20:21 SCREENING [code = BREAST CANCER SCREENING] Future Scheduled Test 2023-03-17 INFLUENZA VACCINE [facility] 14:20:21 [code = INFLUENZA VACCINE] Diagnostic Test 2023-03-16 rapid SARS CoV 2 Ag, [facility] Pending 00:00:00 QL IA, respiratory Hospital Clinics specimen [code = rapid SARS CoV 2 Ag, QL [place], respiratory specimen] Diagnostic Test 2023-03-16 rapid strep group A, [facility] Pending 00:00:00 throat [code = rapid Hospita Clinics strep group A, throat] Diagnostic Test 2023-03-16 rapid flu (A+B) [code [facility] Pending 00:00:00 = rapid flu (A+B)] Hospital Clinics Instructions [facility] Encounters Start End Encounter Admission Attending Care Care Encounter Source Date/Time Date/Time Type Type Clinicians Facility Department ID 2021-06-01 Outpatient R RACHEL [facility] CASSIE [id number] Univers 10:44:54 [facility]01 Emergency [facility] [id number] Univers 06:50[facility] 2021-06-01 Emergency [facility] [id number] Univers 06:34[facility] 2021-05-31 Emergency [facility] [id number] Univers 15:27:17 [facility] 2023-03-18 2023-03-18 Outpatient [facility] [id number] 2022 [place] 00:00:00 00:00:00 0818 [facility] 2023-03-16 2023-03-16 Outpatient [facility] [id number] 2022 [place] 00:00:00 00:00:00 0816 [facility] 2023-03-16 2023-03-16 Rosibel [facility] [place] 16 [place] 00:00:00 00:00:00 Chretien, [facility]muni OPTOMETRY ASSISTANT-CAP INSPECTOR-B Hospital - ty C: [address], [address], [place] [address] , Ph. 2023-01-18 2023-01-18 [facility] [place] 20 [place] 00:00:00 00:00:00 [facility] MSN, OPTOMETRY ASSISTANT, Hospital - ty CAP INSPECTOR-C: [address] [place] [facility], Clinic [address], [address], [place] MSN, CAP INSPECTOR-C [id number] , Ph. 2022-11-16 2022-11-16 Outpatient [facility] [id number] 2022 [place] 00:00:00 00:00:00 0620 Commun i ty Hospita l [facility] 2022-11-16 2022-11-16 [facility] [place] [id number] [place] 00:00:00 00:00:00 Brian, [facility] MSN, OPTOMETRY ASSISTANT, Hospital - ty CAP INSPECTOR-C: [address] [place] [facility], Clinic [address], [address], [place] MSN, CAP INSPECTOR-C [id number] , Ph. 2022-09-24 2022-09-24 Outpatient [facility] [id number] 2022 [place] 00:00:00 00:00:00 0224 Commun i ty Hospita l Clinics 2022-09-24 2022-09-24 Outpatient [facility] [id number] [place] 00:00:00 00:00:00 0418 Commun i ty Hospita l Clinics 2022-09-22 2022-09-22 Outpatient [facility] [id number] [place] 00:00:00 00:00:00 0222 Commun i ty Hospita l Clinics 2022-09-22 2022-09-22 [facility] [place] 22 [place] 00:00:00 00:00:00 Tammy [place] MSN, OPTOMETRY ASSISTANT, [facility] - ty CAP INSPECTOR-C: [address] [place] [facility], Clinic [address], [facility] [address], [place], [place] MSN, CAP INSPECTOR-C [id number] , Ph. 2022-09-08 2022-09-08 Outpatient [facility] [id number] [place] 00:00:00 00:00:00 0208 Commun i ty Hospita l Clinics 2022-06-18 2022-06-18 Telephone Jenna 1.2.840.1 [id number] Methodi 00:00:00 00:00:[address] 3.430.2.7 Hospit a .3.949960 l .8 2022-06-17 2022-06-17 Office Finn Ngo 1.2.840.1 [id number] Methodi 11:30:00 12:09:26 Visit Barkat 96674.1.[address] 3.430.2.7 Hospit a .3.873654 l .8 2022-06-17 2022-06-17 Travel 1.2.840.1 1.2.468.161 [id number] Methodi 00:00:00 00:00:[address] 3.430.2.7 0.2.7.3.698 spita .3.279937 084.8 l .8 2022-06-17 2022-06-17 Outpatient FINN NGO [facility] [id number] [place] 00:00:00 00:00:[address] 2022-05-26 2022-05-26 Telephone [place], 1.2.840.1 [id number] [id number] Methodi 00:00:00 00:00:[address] 3.430.2.7 Hospit a .3.175286 l .8 2022-05-21 2022-05-24 Hospital Finn Ngo 1.2.840.1 [id number] Methodi 05:41:00 14:09:00 Encounter Barkat [address]8461.1.[address] 3.430.2.7 Hospit a .3.838214 l .8 2022-05-21 2022-05-24 Inpatient FINN NGO [facility] [id number] [place] 00:00:00 00:00:[address] 2022-05-21 2022-05-21 Anesthesia HiralcarleyBob 1.2.840.1 [id number] Methodi 07:30:00 13:15:00 Event Parker Claudia 02991.1.[address] 3.430.2.7 Hospit a .3.271343 l .8 2022-05-21 2022-05-21 Surgery Finn Ngo 1.2.840.1 [id number] Methodi 07:30:00 11:00:[address] 3.430.2.7 Hospit a .3.139711 l .8 2022-05-18 2022-05-18 Outpatient FINN NGO [facility] [id number] [place] 00:00:00 00:00:[address] 2022-05-18 2022-05-18 Travel 1.2.840.1 1.2.262.506 [id number] Methodi 00:00:00 00:00:[address] 3.430.2.7 0.2.7.3.698 Ho spita .3.400027 084.8 l .8 2022-05-14 2022-05-14 Hospital Finn Ngo 1.2.840.1 [id number] Methodi 11:50:20 23:59:00 Encounter Barkat 57838.1.[address] 3.430.2.7 Hospit a .3.445408 l .8 2022-05-14 2022-05-14 Outpatient FINN NGO [facility] [id number] [place] 00:00:00 00:00:[address] 2022-05-13 2022-05-13 Pre-Admiss Finn Ngo 1.2.840.1 [id number] Methodi 11:30:00 12:30:00 ion Barkat 14314.1.[address] Testing 3.430.2.7 Hospit a .3.191411 l .8 2022-05-13 2022-05-13 Office Finn Ngo 1.2.840.1 [id number] 2100 [id number] Methodi 09:00:00 09:46:37 Visit Barkat 00857.1.[address] 3.430.2.7 Hospit a .3.735732 l .8 2022-05-13 2022-05-13 Travel 1.2.840.1 1.2.339.434 [id number] Methodi 00:00:00 00:00:[address] 3.430.2.7 0.2.7.3.698 Ho spita .3.110548 084.8 l .8 2022-05-13 2022-05-13 Outpatient FINN NGO [facility] [id number] [place] 00:00:00 00:00:[address] 2022-05-13 2022-05-13 Outpatient FINN NGO [facility] [id number] [place] 00:00:00 00:00:[address] 2022-05-04 2022-05-04 Telephone Jenna 1.2.840.1 [id number] [id number] Methodi 00:00:00 00:00:[address] 3.430.2.7 Hospit a .3.180855 l .8 2022-05-04 2022-05-04 Prep for Finn Ngo 1.2.840.1 [id number] Methodi 00:00:00 00:00:00 Surgery Barkat [address]01.1.[address] 3.430.2.7 Hospit a .3.673265 l .8 2022-05-03 2022-05-03 Documentat Finn Ngo 1.2.840.1 [id number] Methodi 00:00:00 00:00:00 ion [place]at 00606.1.[address] 3.430.2.7 Hospit a .3.945819 l .8 2022-05-03 2022-05-03 Travel 1.2.840.1 1.2.835.330 [id number] Methodi 00:00:00 00:00:00 94235.1.1 350.1.13.[address] 3.430.2.7 0.2.7.3.698 Ho spita .3.641653 084.8 l .8 2022-04-29 2022-04-29 Prep for Finn Ngo 1.2.840.1 [id number] Methodi 00:00:00 00:00:00 Surgery Barkat 25715.1.[address] 3.430.2.7 Hospit a .3.632621 l .8 2022-04-23 2022-04-23 Telephone Jenna 1.2.840.1 [id number] 2099 [id number] Methodi 00:00:00 00:00:[address] 3.430.2.7 Hospit a .3.342217 l .8 2022-04-21 2022-04-21 Office Finn Ngo 1.2.840.1 [id number] 2099 [id number] Methodi 10:30:00 12:54:09 Visit Barkat 63071.1.[address] 3.430.2.7 Hospit a .3.656621 l .8 2022-04-21 2022-04-21 Travel 1.2.840.1 1.2.860.883 1075 801803 Methodi 00:00:00 00:00:[address] 3.430.2.7 0.2.7.3.698 Ho spita .3.320227 084.8 l .8 2022-04-21 2022-04-21 Outpatient [facility] [id number] [address] [place] 00:00:00 00:00:[address] 2022-04-07 2022-04-07 Telephone Justice, 1.2.840.9 [id number] Methodi 00:00:00 00:00:[address] 3.430.2.7 Hospit a .3.990147 l .8 2022-02-17 2022-02-17 Letter Deena Hernandez 1.2.840.114 [id number] [facility] 00:00:00 00:00:00 (Out) MARCOS 350.1.13.10 it y of [facility] 4.2.7.2.686 John as [phone] [address] 2022-02-16 2022-02-16 Laboratory Only, Ang Db Test [facility] 1.2.8 40.114 [id number] [facility] 12:30:00 12:45:00 Only Renny Boyce [facility] 350.1.13.10 ity [facility] 4.2.7.2.686 John as SALOMÓN?BLEA [phone] [address] MEDICAL OFFICE BUILDING 2022-02-16 2022-02-16 Outpatient R CARLI [facility] [id number] [facility] 12:30:00 12:30:00 RENNY cornejo o kenney [facility] 2022-01-29 2022-01-29 Outpatient [facility] [id number] [address] [place] 00:00:00 00:00:00 RUDDY Orr Method i [facility] 2022-01-14 2022-01-14 Outpatient CHO, [facility] [id number] [address] [place] 00:00:00 00:00:00 RUDDY 465 Method i 2022-01-11 2022-01-11 Outpatient CHO, [facility] [id number] [address] [place] 00:00:00 00:00:00 RUDDY 755 Method i 2021-12-25 2021-12-25 Outpatient CHO, [facility] [id number] 704 [place] 00:00:00 00:00:00 RUDDY 905 Method i 2021-12-18 2021-12-18 Outpatient CHO, [facility] [id number] 035 [place] 00:00:00 00:00:00 RUDDY 671 Method i 2021-11-25 2021-11-25 Outpatient CHO, [facility] [id number] 074 [place] 00:00:00 00:00:00 RUDDY 000 Method i 2021-11-25 2021-11-25 Outpatient CHO, [facility] [id number] 993 [place] 00:00:00 00:00:00 RUDDY 617 Method i 2021-11-09 2021-11-09 Emergency X SINGER [facility] ERT [id number] Univers 09:13:00 10:11:[address] [facility] 2021-11-09 2021-11-09 Emergency Singer [facility] 1.2.759.534 [id number] Univers 09:13:00 10:11:00 Jhon RAMIREZ 350.1.13.10 i [facility] 4.2.7.2.686 [facility] [phone] [facility] [address] 2021-09-19 2021-09-19 Telephone DANIEL Barroso 1.2.387.542 [id number] Univers 00:00:00 00:00:00 Erin RODRÍGUEZ 350.1.13.10 it [facility] 4.2.7.2.686 [facility] [id number] [facility] [address] 2021-09-18 2021-09-18 Emergency X Maxwell TRIPP [facility] ERT [id number] Univers 10:46:00 12:22:[address] [facility] 2021-09-18 2021-09-18 Emergency Maxwell Tripp [facility] 1.2.840.114 [id number] Univers 10:46:00 12:22:00 Rachell [place] 350.1.13.10 i ty of [place] [phone] [address] 2021-07-30 2021-07-30 Outpatient R TALON [facility] [id number] Univers 13:00:00 13:29:[address] [facility] 2021-07-30 2021-07-30 Urgent Talon [facility] 1.2.840.114 [id number] Univers 13:00:00 13:20:00 Care [facility] 350.1.13.10 it y of [place] 4.2.7.2.686 John as SALOMÓN?BLEA [phone] [address] OFFICE [facility] 2021-04-10 2021-04-10 Laboratory Only, Ang Db Test [facility] 1.2.8 40.114 [id number] Univers 09:02:24 09:17:24 Only Unknown, Attending [place] 29959.1.13.10 ity [facility] 4.2.7.2.686 John as Salomón?Blea [id number] [address] Office [facility] 2021-04-10 2021-04-10 Outpatient R UNKNOWN, [facility] [id number] Univers 09:10:00 09:10:[address] [facility] 2021-04-08 2021-04-08 Outpatient R UNKNOWN, [facility] [id number] Univers 11:40:00 11:40:[address] [facility] 2021-04-08 2021-04-08 Urgent Stacey Reveles [facility] 1.2.840.114 [id number] Univers 11:05:29 11:25:29 Care Unknown, Attending [facility] 350.1.13.10 ity [facility] 4.2.7.2.686 John as Salomón?Blea [phone] [address] Medical Office [facility] 2021-02-25 2021-02-25 Surgery Charrhoda [facility] 1.2.840.114 [id number] Univers 14:30:00 15:08:00 Geraldo yang Mehrdad 350.1.13.10 ity of [place] [phone] [facility] [address] 2021-02-25 2021-02-25 [facility] 1.2.840.114 [id number] Univers 12:01:00 14:03:00 Encounter Liz yangdaniel Ramirez 350.1.13.10 ity of [place] [id number] [facility] [address] 2021-02-24 2021-02-24 Laboratory Only, Adc Test [facility] 1.2.840. 114 [id number] Univers 12:52:51 13:07:51 Only Geraldo Meredith Mehrdad 350.1.1 3.10 ity of [place].2.686 [place] [phone] [facility] [address] [place] 2021-02-24 2021-02-24 [facility] 072 [id number] Univers 12:15:00 12:15:00 GERALDO Yang clemente o f [facility] 2021-02-04 2021-02-04 Emergency [facility] 1.2.943.517 [id number] Univers 12:55:00 16:25:00 Nicko Ramirez 350.1.13.10 i ty of [place] 4.[place].2.[place] [id number] [facility] [address] [place] 2020-12-16 2020-12-16 Outpatient R PERRI [facility] [id number] Univers 17:00:00 17:00:00 VANESSA cornejo of [facility] 2020-12-16 2020-12-16 Innersole Maker Sherice, Celine Lab Main [facility] 1.2.8 40.114 [id number] Univers 16:30:03 16:45:03 Visit Vanessa Rayo 350.1.13.10 ity of [place].2.[place] Profess[place] [phone] [address] 2020-12-16 2020-12-16 Orders Doctor DANIEL 1.2.840.114 [id number] Univers 00:00:00 00:00:00 Only Unassigned, MARCOS 350.1.13.10 ity of [place] [facility] 4.2.7.2.686 John as [id number] [address] 2020-12-09 2020-12-09 Outpatient KAPIL [facility] [id number] 745 [place] 00:00:00 00:00:00 FRANCESCO Serrato Method i st 2020-11-25 2020-11-25 Emergency Sharri Sanchez [facility] 1.2.8 40.114 [id number] Univers 06:26:00 09:32:00 Nicko Lloyd 350.1.13.10 ity of [place] 4.2.7.2.686 [place] [facility] [phone] [facility] [address] [place] 2020-11-25 2020-11-25 Orders Doctor DANIEL 1.2.840.114 [id number] Univers 00:00:00 00:00:00 Only Unassigned, MARCOS 350.1.13.10 ity of [place] [facility] 4.2.7.2.686 John as [id number] [address] 2020-08-04 2020-08-04 Laboratory Lab, [facility] Fam Pob I [facility] 1.2. 840.114 [id number] Univers 17:18:59 17:38:59 Only Green, Jon Health 350.1.13.10 ity of [employer] [place] 4.2.7.2.686 John as Professio [phone] [facility] [address] Office [address] One 2020-08-04 2020-08-04 Laboratory Lab, [facility] 1.2.840.114 [id number] 17:18:59 17:38:59 Only Fam Pob I Health 350.1.13.10 [employer] [place] 4.2.7.2.686 Professio [id number] nal [facility] Office [facility] 2020-08-04 2020-08-04 Outpatient R TALON [facility] [id number] Univers 17:20:00 17:20:00 JON ity of [facility] 2020-02-15 2020-02-15 Laboratory Lab, [facility] Fam Pob I [facility] 1.2. 840.114 [id number] [facility] 07:11:27 07:31:27 Only Jon Peoples 350.1.13.10 ity of [employer] 4.2.7.2.686 John as Professio [phone] Hi dical [address] Office [facility] 2020-02-15 2020-02-15 Laboratory Lab, [facility] 1.2.840.114 [id number] 07:11:27 07:31:27 Only Fam Pob I Health 350.1.13.10 [employer] [place] 4.2.7.2.686 Professio [phone] [place] [address] Office [address] [facility] 2020-02-15 2020-02-15 Outpatient R TALON [facility] [id number] Univers 07:20:00 07:20:00 JON ity of [facility] 2020-02-15 2020-02-15 Letter Doctor SANCHEZ 1.2.840.114 [id number] Univers 00:00:00 00:00:00 (Out) Unassigned, MARCOS 350.1.13.10 ity of [place] [facility] 4.2.7.2.686 John as [phone] [address] 2020-02-15 2020-02-15 Letter Doctor DANIEL 1.2.840.114 [id number] 00:00:00 00:00:00 (Out) Unassigned, MARCOS 350.1.13.10 [place] [facility] 4.2.7.2.686 [id number] [facility] 2020-01-25 2020-01-25 Transition Daniel Schumacher 1.2.840.114 [id number] Univers 00:00:00 00:00:00 of Care [place] 350.1.13.10 ity of [place]7.2.[place] [phone] [address] 2020-01-25 2020-01-25 Transition Daniel Schumacher 1.2.840.114 [id number] 00:00:00 00:00:00 of Care [place] 350.1.13.10 [place] 4.2.7.[id number] [facility] 2020-01-21 2020-01-24 [facility] Nicko Lloyd [facility] 1.2.840.1 14 [id number] Univers 09:35:33 17:39:00 Encounter Melo Sauceda 350.1.13.10 ity [facility] 4.2.7.2.686 [facility] [phone] [facility] [address] [place] 2020-01-21 2020-01-24 Inpatient X SAUCEDAMELO [facility] [id number] Univers 09:35:33 17:39:00 ity of [facility] 2020-01-21 2020-01-24 [facility] Nicko Lloyd [facility] 1.2.840.1 14 [id number] 09:35:33 17:39:00 Encounter Melo Sauceda 350.1.13.10 [place] 4.2.7.2.686 [place] [id number] 08 2020-01-21 2020-01-21 Orders Doctor DANIEL 1.2.840.114 [id number] Univers 00:00:00 00:00:00 Only Unassigned, MARCOS 350.1.13.10 ity of [place] [facility] 4.2.7.2.686 [facility] [phone] [facility] [address] [place] 2020-01-21 2020-01-21 Orders Doctor DANIEL 1.2.840.114 [id number] 00:00:00 00:00:00 Only Unassigned, MARCOS 350.1.13.10 [place] [address]686 [phone] 009 Results Test Description Test Time Test Comments Results Result Comments Source Surgical pathology request 2022-05-25 23:41:59 Test Item Value Reference Range Interpretation Comme [facility] Case number (test code = 4712814) [id number] Surgical pathology report (test code = See link below for PDF Lab R eport 0878) Result status (test code = 4703695) This is Final Report for [id number] 7593-8 [id number] 19:45:00 Test Item Value Reference Range Interpretation Comments Urine culture (test SEE COMMENT Bacteriu nathan screen code = 7066718) negative. [facility] microscopy, with reflex to culture 2022-05-21 19:45:00 Test Item Value Reference Range Interpretation Comments Specimen site (test Random void code = 9568805) Color, UA (test code = Blue 5778-6) Appearance, UA (test Turbid code = 5767-9) Specific gravity, UA 1.035 1.001-1.030 H (test code = 5811-5) pH, UA (test code = 5.0 5.0-9.0 5803-2) Protein, UA (test code Negative Negative = 99588-5) Glucose, UA (test code Negative Negative = 06296-5) Ketones, UA (test code 1+ Negative A = 2514-8) Bilirubin, UA (test Negative Negative code = 5770-3) Blood, UA (test code = Negative Negative 5794-3) Nitrite, UA (test code Negative Negative = 5802-4) Urobilinogen, UA (test <2.0 See_Comment [Aut omated code = 59883-4) message] The system which generated this result transmitted reference range : <2.0 E.U./dL. T he reference range was not used to interpret this result as normal/abnormal . Leukocyte esterase, UA Negative Negative (test code = 5799-2) WBC, UA (test code = 2 See_Comment [Autom ated 5821-4) message] The sy stem which generated this result transmitted reference range : 0 - 4 /HPF. The reference range was not used to interpret this result as normal/abnormal . RBC, UA (test code = None seen See_Comment [Autom ated 39576-8) message] The sy stem which generated this result transmitted reference range : 0 - 5 /HPF. The reference range was not used to interpret this result as normal/abnormal . Bacteria, UA (test code Few None seen = 41691-2) Yeast, UA (test code = None seen 35342-7) Yeast with None seen pseudohyphae, UA (test code = 67142-8) Lab Interpretation Abnormal (test code = 90694-7) [facility] [id number] 11:59:00 Test Item Value Reference Range Interpretation Comments POC glucose (test 97 mg/dL 65-99 [employer] N alondra: Alcalar code = 64188-3) Isha Shaw Device ID: [id number] [facility] , [id number] 11:33:08 Test Item Value Reference Range Interpretation Comments test urine, POC (test Negative code = 2106-3) Internal QC (test code = 257) QC acceptable Tenriism JuqqxwytKQFA-XfS-2 (COVID-19) RNA [Presence] in Respiratory specimen by JORDEN with probe [id number] 17:09:42 Test Item Value Reference Range Interpretation Comments SARS-CoV-2 (COVID-19) RNA Not detected [Presence] in Respiratory specimen by JORDEN with probe detection (test code = 52970-3) Whether patient is employed in a Unknown healthcare setting (test code = 62216-7) Whether the patient has symptoms Unknown related to condition of interest (test code = 32370-8) Whether the patient was Unknown hospitalized for condition of interest (test code = 01744-6) Whether the patient was admitted Unknown to intensive care unit (ICU) for condition of interest (test code = 42201-9) Whether patient resides in a Unknown congregate care setting (test code = 43911-8) status (test code = Unknown 26561-1) Date and time of symptom onset Unknown (test code = 52182-5) [facility] Pre/Post [id number] 18:14:19 Test Item Value Reference Range Interpretation Comments Ventricular rate (test 81 code = 253) Atrial rate (test code = 81 255) RI interval (test code = 176 266) QRSD interval (test code 92 = 260) QT interval (test code = 366 264) QTC interval (test code 425 = 265) P axis 1 (test code = 53 267) QRS axis 1 (test code = 44 268) T wave axis (test code = 28 270) EKG impression (test Normal sinus code = 273) rhythm-Low voltage QRS-Nonspecific ST abnormality-Abnormal ECG-No previous ECGs available-Electronica lly Signed By Genoveva Schulz MD ([id number]) on 05/15/2022 1:14:17 PM Debi Altamirano-CoV-2 (COVID-19) RNA [Presence] in Respiratory specimen by JORDEN with probe [id number] 17:18:53 Test Item Value Reference Range Interpretation Comments SARS-CoV-2 (COVID-19) RNA Not detected [Presence] in Respiratory specimen by JORDEN with probe detection (test code = 22503-5) Whether patient is employed in a Unknown healthcare setting (test code = 96345-6) Whether the patient has symptoms Unknown related to condition of interest (test code = 22155-7) Whether the patient was Unknown hospitalized for condition of interest (test code = 85601-2) Whether the patient was admitted Unknown to intensive care unit (ICU) for condition of interest (test code = 61083-4) Whether patient resides in a Unknown congregate care setting (test code = 34373-3) status (test code = Unknown 16875-1) Date and time of symptom onset Unknown (test code = 36784-0) [facility] [id number] 19:56:32 No acute intra-abdominal process. EXAM: CT ABDOMEN AND PELVIS WITH CONTRAST HISTORY: Abdominal infection COMPARISON: 11/25/2020 TECHNIQUE AND FINDINGS: Contiguous axial imaging from the level of the lungbases through the pubic symphysis was performed after the uncomplicatedadministration of intravenous contrast. Coronal and sagittalreconstructions were obtained. ?Auto mA and/or iterative reconstructionwere used to reduce radiation dose. FINDINGS: LOWER THORAX: The lungs bases are clear. LIVER: No focal hepatic lesions. ?Normal contour. GALLBLADDER AND BILIARY TREE: Gallbladder is surgically absent.Extrahepatic biliary dilatation probably secondary to reservoir phenomenon.The duct tapers normally to the ampulla. SPLEEN: Normal. PANCREAS: Normal. ADRENAL GLANDS: Normal. KIDNEYS: Normal enhancement and no hydronephrosis, GI TRACT: No dilation or wall thickening. Prior gastric sleeve operation.Normal appendix. PERITONEUM AND RETROPERITONEUM: No free air or fluid. LYMPH NODES: No lymphadenopathy. PELVIS/BLADDER: Normal ovaries. Intrauterine device noted in theendometrial cavity. Bladder minimally distended and normal in appearance. VESSELS: Mild atherosclerosis of the infrarenal aorta and common il iacarteries. BONES AND SOFT TISSUES: Mild to moderate degenerative changes at L5-S1 withintervertebral disc space narrowing and endplate sclerosis. Mild rightL5-S1 neuroforaminal narrowing. [facility], Radiant Results Inft User - 02/04/2021 2:57 PM CDTFormatting of this note might be different from the origi nal.EXAM: CT ABDOMEN AND PELVIS WITH CONTRASTHISTORY: Abdominal infectionCOMPARISON: 11/25/2020TECHNIQUE AND FINDINGS: Contiguous axial imaging from the level of the lungbases through the pubic symphysis was performed after the uncomplicatedadministration of intravenous contrast. Coronal and sagittalrec onstructions were obtained. Auto mA and/or iterative reconstructionwere used to reduce radiation dose.FINDINGS:LOWER THORAX: The lungs bases are clear. LIVER: No focal hepatic lesions. Normal contour.GALLBLADDER AND BILIARY TREE: Gallbladder is surgically absent.Extrahepatic biliary dilatation probably secondary to reservoir phenomenon.The duct tapers normally to the ampulla.SPLEEN: Normal.PANCREAS: Normal.ADRENAL GLANDS: Normal.KIDNEYS: Normal enhancement and no hydronephrosis,GI TRACT: No dilationor wall thickening. Prior gastric sleeve operation.Normal appendix.PERITONEUM AND RETROPERITONEUM: No free air or fluid.LYMPH NODES: No lymphadenopathy.PELVIS/BLADDER: Normal ovaries. Intrauterine device noted in theendometrial cavity. Bladder minimally distended and normal in appearance.VESSELS: Mildatherosclerosis of the infrarenal aorta and common iliacarteries.BONES AND SOFT TISSUES: Mild to mode rate degenerative changes at L5-S1 withintervertebral disc space narrowing and endplate sclerosis. Mild rightL5-S1 neuroforaminal narrowing.IMPRESSIONNo acute intra-abdominal process.[facility] CenterUrinalysis2021-07-07 18:42:31 Test Item Value Reference Range Interpretation Comments APPEARANCE (test code = Hazy Clear A 7003342486) COLOR (test code = Yellow Yellow 4636109211) PH (test code = 4.8-8.0 9410734293) SP GRAVITY (test code = 1.003-1.030 7041196907) GLU U QUAL (test code = Normal Normal 1629787384) BLOOD (test code = Negative Negative 6255765600) KETONES (test code = Negative Negative 9479551763) PROTEIN (test code = Negative Negative 2887-8) UROBILIN (test code = Normal Normal 3791312963) BILIRUBIN (test code = Negative Negative 4849653930) NITRITE (test code = Negative Negative 1152505964) LEUK PEGGY (test code = Negative Negative 2804114199) RBC/HPF (test code = See_Comment [Autom ated message] 1482640784) The system [employer] generated this result transmitted ref erence range: 0 - 3 HP F. The reference range was not used to int erpret this result as normal/abnormal . WBC/HPF (test code = See_Comment [Autom ated message] 5284182338) The system [employer] generated this result transmitted ref erence range: 0 - 5 HP F. The reference range was not used to int erpret this result as normal/abnormal . BACTERIA (test code = Few Negative A 3514358740) MUCOUS (test code = Marked Negative LPF A 3177581724) SQ EPITH (test code = HPF 4242919076) Lab Interpretation (test Abnormal code = 47718-0) [facility] [id number] 18:32:15 Test Item Value Reference Range Interpretation Comments NA (test code = 138 mmol/L 135-145 3557809680) K (test code = 4.7 mmol/L 3.5-5.0 8182608479) CL (test code = 109 mmol/L 98-108 H 1878680477) CO2 TOTAL (test code = 23 mmol/L 23-31 1856068014) AGAP (test code = 2-16 7308864508) BUN (test code = 10 mg/dL 7-23 4664580320) GLUCOSE (test code = 90 mg/dL 70-110 9455271024) CREATININE (test code = 0.63 mg/dL 0.50-1.04 3727806582) TOTAL BILI (test code = 0.7 mg/dL 0.1-1.4 9417278223) CALCIUM (test code = 9.6 mg/dL 8.6-10.6 8520051708) T PROTEIN (test code = 7.8 g/dL 6.3-8.2 6971148005) ALBUMIN (test code = 4.4 g/dL 3.5-5.0 8939819136) ALK PHOS (test code = 75 U/L 34-122 7918400343) ALTv (test code = 15 U/L 5-35 2-6) AST(SGOT) (test code = 34 U/L 13-40 6653925882) eGFR (test code = mL/min/1.73m2 9412887271) ELLIS (test code = ELLIS) Association of Glomerular Filtration Rate (GFR) and Staging of Kidney Disease* + --+ --+ ------+| GFR (mL/min/1.73 m2) ?| With Kidney Damage ?| ?Without Kidney Damage+ --------+ --------+ +| ?>90 ?| ?Stage one ?| ? Normal ?+ ---+ ---+ -------+| ?60-89 ?| ?Stage two ?| ? Decreased GFR ? + --+ --+ ------+| ?30-59 ?| ?Stage three ?| ? Stage three ? + --+ --+ ------+| ?15-29 ?| ?Stage four ? | ? Stage four ?+ ---+ ---+ -------+| ?<15 (or dialysis) ? ?| ?Stage five ? | ? Stage five ?+ ---+ ---+ -------+ *Each stage assumes the associated GFR level has been in effect for at least three months. ?Stages 1 to 5, with or without kidney disease, indicate chronic kidney disease. Notes: Determination of stages one and two (with eGFR >59mL/min/1.73 m2) requires estimation of kidney damage for at least three months as defined by structural or functional abnormalities of the kidney, manifested by either:Pathological abnormalities or Markers of kidney damage (including abnormalities in the composition of the blood or urine or abnormalities in imaging tests). Lab Interpretation Abnormal (test code = 67023-4) [facility] CenterLip[facility], [id number] 18:31:54 Test Item Value Reference Range Interpretation Comments LIPASE (test code = 9621833625) 48 U/L 0-220 Lab Interpretation (test code = Normal 12112-4) [facility] CenterCBC with [id number] 18:20:30 Test Item Value Reference Range Interpretation Comments WBC (test code = See_Comment [Automated message] 6690-2) The system [employer] generated this result transmitted ref erence range: 4.30 - 1 1.10 10*3/?L. The re ference range was not u sed to interpret this result as normal/abnor mal. RBC (test code = See_Comment [Automated message] 789-8) The system [employer] generated this result transmitted ref erence range: 3.93 - 5 .25 10*6/?L. The re ference range was not u sed to interpret this result as normal/abnor mal. HGB (test code = 14.0 g/dL 11.6-15.0 718-7) HCT (test code = 42.4 % 35.7-45.2 4544-3) MCV (test code = 86.4 fL 80.6-95.5 787-2) MCH (test code = 28.5 pg 25.9-32.8 785-6) MCHC (test code = 33.0 g/dL 31.6-35.1 786-4) RDW-SD (test code 41.9 fL 39.0-49.9 = 11992-4) RDW-CV (test code 13.5 % 12.0-15.5 = 788-0) PLT (test code = See_Comment [Automated message] 777-3) The system [employer] generated this result transmitted ref erence range: 166 - 35 8 10*3/?L. The re ference range was not u sed to interpret this result as normal/abnor mal. MPV (test code = 10.7 fL 9.5-12.9 09099-8) NRBC/100 WBC (test See_Comment [Automat ed message] code = 3086836635) The syste m which generated this result transmitted ref erence range: 0.0 - 10 .0 /100 WBCs. The refer ence range was not u sed to interpret this result as normal/abnor mal. NRBC x10^3 (test <0.01 See_Comment [Automated message] code = 5720858108) The syste m which generated this result transmitted ref erence range: 10*3/?L. The reference range was not used to interpr et this result as normal/abnormal . GRAN MAT (NEUT) % 57.5 % (test code = 770-8) IMM GRAN % (test 0.20 % code = 6256113003) LYMPH % (test code 31.5 % = 736-9) MONO % (test code 7.6 % = 5905-5) EOS % (test code = 2.4 % 713-8) BASO % (test code 0.8 % = 706-2) GRAN MAT 3.58 10*3/uL 1.88-7.09 x10^3(ANC) (test code = 5239386128) IMM GRAN x10^3 <0.03 0.00-0.06 (test code = 9300260182) LYMPH x10^3 (test 1.96 10*3/uL 1.32-3.29 code = 731-0) MONO x10^3 (test 0.47 10*3/uL 0.33-0.92 code = 742-7) EOS x10^3 (test 0.15 10*3/uL 0.03-0.39 code = 711-2) BASO x10^3 (test 0.05 10*3/uL 0.01-0.07 code = 704-7) [facility] [id number] 18:10:00 Test Item Value Reference Range Interpretation Comments POCT PREG (test code = 1605) negative On board controls acceptable with present C Line (test code = 3574) POCT PREG LOT # (test code = 3575) [id number] POCT PREG TEST DATE (test code = 3576) Lab Interpretation (test code = Normal 95724-2) [facility] ABDOMEN PELVIS W [id number] 13:03:22Addendum by Marisol Benites MD on 11/25/2020 8:23 AM* * * * * * * * ADDENDUM: * * * * * * * *Correction: Patient had cholecystectomy. No hysterectomy. In fact, IUD is in goodposition within the uterus.CT Abdomen and Pelvis with intravenous contrast. CLINICAL HISTORY: Acute generalized abdominal pain. DOSE: Up-to-date CT equipment and radiation dose reduction techniques wereemployed. CTDIvol: 13.61 mGy. DLP: 766 mGy-cm. TECHNIQUE : Contiguous axial imaging from the level of the lung basesthrough the pubic symphysis were performed after the uncomplicatedadministration of Omnipaque contrast material. ?Coronal and sagittalreconstructions were obtained. Auto mA and/or iterative reconstruction wereused to reduce radiation dose. FINDINGS: Comparison has been made with 01/21/2020 study. Lower lungs:Calcified granuloma in the left lower lung. No pleuraleffusion or pericardial effusion. Liver, Gallbladder and Spleen: Liver is slightly enlarged, 17.5 cm inlength and shows mild diffuse steatosis. Spleen is also enlarged, 14.4 x6.6 cm in size. Gallbladder has been removed. Common hepatic duct isdilated up to 15 mm and there is a long cystic duct remnant. Pancreaticduct is not dilated. Peritoneum: ?No free air or free fluid. No lymphadenopathy. Pancreas and Adrenals: ?Unremarkable pancreas and adrenal glands. Kidneys and Ureters: ?No visible calculi in the renal collecting systems. No hydroureter or hydronephrosis. Vessels: Minimal atherosclerosis. Patent hepatic/portal venous systems andrenal veins. Retroperitoneum: No abnormal fluid or lymphadenopathy. Bowel: Vertical band gastroplasty noted. Ad jacent to the ampulla, there isan irregular shaped 18 mm diverticulum of the duodenum. Normal appendix isvisualized. Mild diverticulosis of the sigmoid and descending colon notedwithout any acute changes. Bladder and Reproductive Organs: S/P hysterectomy. Left ovary contains a 13mm cyst and right ovary contains 15 mm cyst. T shaped IUD is in goodposition within the uterus. No free fluid in the pelvis. Urinary bladder isdecompressed and cannot be evaluated. Bones: Moderate to severe chronic degenerative disc disease at L5-S1 withendplate sclerosis, prominent disc osteophyte complex encroaching into t hespinal canal. No acute findings. Soft tissues: Unremarkable. CONCLUSION:1. No acute intra-abdominal or pelvic abnormalities detected.2. S/P cholecystectomy and hysterectomy. Dilated central intrahepatic ductsas well as extrahepatic biliary ducts noted, unchanged when compared with01/21/2020 study.3. Mild hepatosplenomegaly with hepatic steatosis. [facility], Radiant Results Inft User - 11/25/2020 8:04 AM CDTCT Abdomen and Pelvis with intravenous contrast.CLINICAL HISTORY: Acute generalized abdominal pain.DOSE: Up-to-date CT equipment and radiation dose reduction techniques wereemployed. CTDIvol: 13.61 mGy. DLP: 766 mGy-cm.TECHNIQUE : Contiguous axial imaging from the level of the lung basesthrough the pubic symphysis were performed after the uncomplicatedadministration of Omnipaque contrast material. Coronal and sagittalreconstructions were obtained. Auto mA and/or iterative reconstruction wereused to reduce radiation dose.FINDINGS: Comparison has been made with 01/21/2020 study.Lower lungs: Calcified granuloma in the left lower lung. No pleuraleffusion or pericardial effusion.Liver, Gallbladder andSpleen: Liver is slightly enlarged, 17.5 cm inlength and shows mild diffuse steatosis. Spleen is also enlarged, 14.4 x6.6 cm in size. Gallbladder has been removed. Common hepatic duct isdilated up to 15 mm and there is a long cystic duct remnant. Pancreaticduct is not dilated.Peritoneum: No free air or free fluid. No lymphadenopathy.Pancreas and Adrenals: Unremarkable pancreas and adrenal glands.Kidneys and Ureters: No visible calculi in the renal collecting systems. No hydroureter or hydronephrosis. Vessels: Minimal atherosclerosis. Patent hepatic/portal venous systems andrenal veins.Retroperitoneum: No abnormal fluid or lymphadenopathy.Bowel: Vertical band gastroplasty noted. Adjacent to the ampu lla, there isan irregular shaped 18 mm diverticulum of the duodenum. Normal appendix isvisualized. Mild diverticulosis of the sigmoid and descending colon notedwithout any acute changes.Bladder and Reproductive Organs: S/P hysterectomy. Left ovary contains a 13mm cyst and right ovary contains 15 mm cys t. T shaped IUD is in goodposition within the uterus. No free fluid in the pelvis. Urinary bladder isdecompressed and cannot be evaluated.Bones: Moderate to severe chronic degenerative disc disease at L5-S1 withendplate sclerosis, prominent disc osteophyte complex encroaching into thespinal canal. No acute findings.Soft tissues: Unremarkable.CONCLUSION:1. No acute intra-abdominal or pelvic abnormalities detected.2. S/P cholecystectomy and hysterectomy. Dilated central intrahepatic ductsas well as extrahepatic biliary ducts noted, unchanged when compared with01/21/2020 study.3. Mild hepatosplenomegaly with hepatic steatosis.[facility] CenterUrinalysis2021-04-27 12:39:02 Test Item Value Reference Range Interpretation Comments APPEARANCE (test code = Hazy Clear A 5513824629) COLOR (test code = Yellow Yellow 2970773390) PH (test code = 4.8-8.0 1077056323) SP GRAVITY (test code = 1.003-1.030 9500772907) GLU U QUAL (test code = Normal Normal 0055618006) BLOOD (test code = Negative Negative 4253748256) KETONES (test code = Negative Negative 6360542614) PROTEIN (test code = Negative Negative 2887-8) UROBILIN (test code = Normal Normal 8159852963) BILIRUBIN (test code = Negative Negative 6375311340) NITRITE (test code = Negative Negative 9868911336) LEUK PEGGY (test code = 25/uL Negative A 2098913263) RBC/HPF (test code = See_Comment H [Autom ated message] 1707499120) The system [employer] generated this result transmitted ref erence range: 0 - 3 HP F. The reference range was not used to int erpret this result as normal/abnormal . WBC/HPF (test code = See_Comment H [Autom ated message] 9344497409) The system [employer] generated this result transmitted ref erence range: 0 - 5 HP F. The reference range was not used to int erpret this result as normal/abnormal . BACTERIA (test code = Many Negative A 2279812409) MUCOUS (test code = Marked Negative LPF A 9235572207) SQ EPITH (test code = HPF 7758880741) HYAL CAST (test code = See_Comment [Aut omated message] 3222871967) The system [employer] generated this result transmitted ref erence range: <=2 LPF. The reference range was not used to int erpret this result as normal/abnormal . Ictotest (test code = Negative 5592732005) Lab Interpretation (test Abnormal code = 15461-8) [facility] [id number] 12:13:00 Test Item Value Reference Range Interpretation Comments POCT PREG (test code = 1605) negative On board controls acceptable with present C Line (test code = 3574) POCT PREG LOT # (test code = 3575) [id number] POCT PREG TEST DATE (test 06/30/2022 code = 3576) Lab Interpretation (test code = Normal 41816-9) [facility] CenterComplete Metabolic [id number] 12:10:02 Test Item Value Reference Range Interpretation Comments NA (test code = 136 mmol/L 135-145 4750249554) K (test code = 3.8 mmol/L 3.5-5.0 5204676237) CL (test code = 106 mmol/L 98-108 5129644867) CO2 TOTAL (test code 24 mmol/L 23-31 = 8230520635) AGAP (test code = 2-16 0992475217) BUN (test code = 9 mg/dL 7-23 4540886538) GLUCOSE (test code = 86 mg/dL 70-110 0279984723) CREATININE (test code 0.68 mg/dL 0.50-1.04 = 8712829908) TOTAL BILI (test code 0.7 mg/dL 0.1-1.1 = 0002671439) CALCIUM (test code = 8.8 mg/dL 8.6-10.6 8444696324) T PROTEIN (test code 6.9 g/dL 6.3-8.2 = 6247746595) ALBUMIN (test code = 4.0 g/dL 3.5-5.0 7962893882) ALK PHOS (test code = 67 U/L 34-122 2525765730) ALTv (test code = 12 U/L 5-35 1742-6) AST(SGOT) (test code 23 U/L 13-40 = 6415484297) eGFR (test code = mL/min/1.73m2 7590704173) ELLIS (test code = ELLIS) Association of Glomerular Filtration Rate (GFR) and Staging of Kidney Disease* + + +- +| GFR (mL/min/1.73 m2) ?| With Kidney Damage ?| ?Without Kidney Damage+ ------+ ----+ ------+| ?>90 ?| ?Stage one ?| ? Normal ?+ -+ + -+| ?60-89 ?| ?Stage two ?| ? Decreased GFR ? + + +- +| ?30-59 ?| ?Stage three ?| ? Stage three ? + + +- +| ?15-29 ?| ?Stage four ? | ? Stage four ?+ -+ + -+| ?<15 (or dialysis) ? ?| ?Stage five ? | ? Stage five ?+ -+ + -+ *Each stage assumes the associated GFR level has been in effect for at least three months. ?Stages 1 to 5, with or without kidney disease, indicate chronic kidney disease. Notes: Determination of stages one and two (with eGFR >59mL/min/1.73 m2) requires estimation of kidney damage for at least three months as defined by structural or functional abnormalities of the kidney, manifested by either:Pathological abnormalities or Markers of kidney damage (including abnormalities in the composition of the blood or urine or abnormalities in imaging tests). [facility] CenterLipase, [id number] 12:09:22 Test Item Value Reference Range Interpretation Comments LIPASE (test code = 9508371524) 34 U/L 0-220 Lab Interpretation (test code = Normal 56304-6) [facility] CenterCBC with [id number] 11:50:21 Test Item Value Reference Range Interpretation Comments WBC (test code = See_Comment [Automated message] 5790-2) The system [employer] generated this result transmitted ref erence range: 4.30 - 1 1.10 10*3/?L. The re ference range was not u sed to interpret this result as normal/abnor mal. RBC (test code = See_Comment [Automated message] 9-8) The system [employer] generated this result transmitted ref erence range: 3.93 - 5 .25 10*6/?L. The re ference range was not u sed to interpret this result as normal/abnor mal. HGB (test code = 13.2 g/dL 11.6-15.0 718-7) HCT (test code = 39.1 % 35.7-45.2 4544-3) MCV (test code = 87.9 fL 80.6-95.5 787-2) MCH (test code = 29.7 pg 25.9-32.8 785-6) MCHC (test code = 33.8 g/dL 31.6-35.1 786-4) RDW-SD (test code 41.1 fL 39.0-49.9 = 92771-5) RDW-CV (test code 13.0 % 12.0-15.5 = 788-0) PLT (test code = See_Comment [Automated message] 677-3) The system [employer] generated this result transmitted ref erence range: 166 - 35 8 10*3/?L. The re ference range was not u sed to interpret this result as normal/abnor mal. MPV (test code = 10.9 fL 9.5-12.9 72009-2) NRBC/100 WBC (test See_Comment [Automat ed message] code = 2278517540) The syste m which generated this result transmitted ref erence range: 0.0 - 10 .0 /100 WBCs. The refer ence range was not u sed to interpret this result as normal/abnor mal. NRBC x10^3 (test <0.01 See_Comment [Automated message] code = 6633520216) The syste m which generated this result transmitted ref erence range: 10*3/?L. The reference range was not used to interpr et this result as normal/abnormal . GRAN MAT (NEUT) % 44.2 % (test code = 770-8) IMM GRAN % (test 0.40 % code = 6425585085) LYMPH % (test code 43.3 % = 736-9) MONO % (test code 8.5 % = 5905-5) EOS % (test code = 2.9 % 713-8) BASO % (test code 0.7 % = 706-2) GRAN MAT 2.44 10*3/uL 1.88-7.09 x10^3(ANC) (test code = 1423430411) IMM GRAN x10^3 <0.03 0.00-0.06 (test code = 4848170739) LYMPH x10^3 (test 2.39 10*3/uL 1.32-3.29 code = 731-0) MONO x10^3 (test 0.47 10*3/uL 0.33-0.92 code = 742-7) EOS x10^3 (test 0.16 10*3/uL 0.03-0.39 code = 711-2) BASO x10^3 (test 0.04 10*3/uL 0.01-0.07 code = 704-7) [facility] CenterFECAL [id number] 23:47:00 Test Item Value Reference Range Interpretation Comments Fecal Leukocytes (test code = Negative Negative 9950701518) Lab Interpretation (test code = Normal 32166-2) [facility] CenterURINE [id number] 20:38:00 Test Item Value Reference Range Interpretation Comments URINE CULTURE (test No aerobic organisms code = 630-4) [facility] Metabolic Panel (NA, K, CL, CO2, GLUCOSE, BUN, CREATININE, CA)2020-01-22 10:16:00 Test Item Value Reference Range Interpretation Comments NA (test code = 139 mmol/L 135-145 6887315014) K (test code = 3.8 mmol/L 3.5-5 3883586617) CL (test code = 108 mmol/L 98-108 7659706739) CO2 TOTAL (test code = 26 mmol/L 23-31 8734428609) AGAP (test code = 2-16 4313813182) BUN (test code = 6 mg/dL 7-23 L 9669992574) GLUCOSE (test code = 83 mg/dL 70-110 3350368208) CREATININE (test code = 0.69 mg/dL 0.5-1.04 5091839178) CALCIUM (test code = 8.7 mg/dL 8.6-10.6 7001496442) eGFR Calculation mL/min/1.73m2 (Non-) (test code = 2875153482) eGFR Calculation mL/min/1.73m2 () (test code = 4905861527) ELLIS (test code = ELLIS) Association of Glomerular Filtration Rate (GFR) and Staging of Kidney Disease* + --+ --+ ------+| GFR (mL/min/1.73 m2) ?| With Kidney Damage ?| ?Without Kidney Damage+ --------+ --------+ +| ?>90 ?| ?Stage one ?| ? Normal ?+ ---+ ---+ -------+| ?60-89 ?| ?Stage two ?| ? Decreased GFR ? + --+ --+ ------+| ?30-59 ?| ?Stage three ?| ? Stage three ? + --+ --+ ------+| ?15-29 ?| ?Stage four ? | ? Stage four ?+ ---+ ---+ -------+| ?<15 (or dialysis) ? ?| ?Stage five ? | ? Stage five ?+ ---+ ---+ -------+ *Each stage assumes the associated GFR level has been in effect for at least three months. ?Stages 1 to 5, with or without kidney disease, indicate chronic kidney disease. Notes: Determination of stages one and two (with eGFR >59mL/min/1.73 m2) requires estimation of kidney damage for at least three months as defined by structural or functional abnormalities of the kidney, manifested by either:Pathological abnormalities or Markers of kidney damage (including abnormalities in the composition of the blood or urine or abnormalities in imaging tests). Lab Interpretation Abnormal (test code = 75873-0) [facility] WITH [id number] 09:45:00 Test Item Value Reference Range Interpretation Comments WBC (test code = See_Comment [Automated message] 6690-2) The system [employer] generated this result transmitted ref erence range: 4.30 - 1 1.10 10*3/?L. The re ference range was not u sed to interpret this result as normal/abnor mal. RBC (test code = See_Comment [Automated message] 789-8) The system [employer] generated this result transmitted ref erence range: 3.93 - 5 .25 10*6/?L. The re ference range was not u sed to interpret this result as normal/abnor mal. HGB (test code = 12.9 g/dL 11.6-15 718-7) HCT (test code = 38.7 % 35.7-45.2 4544-3) MCV (test code = 90.4 fL 80.6-95.5 787-2) MCH (test code = 30.1 pg 25.9-32.8 785-6) MCHC (test code = 33.3 g/dL 31.6-35.1 786-4) RDW-SD (test code 43.0 fL 39-49.9 = 61128-7) RDW-CV (test code 13.1 % 12-15.5 = 788-0) PLT (test code = See_Comment [Automated message] 777-3) The system [employer] generated this result transmitted ref erence range: 166 - 35 8 10*3/?L. The re ference range was not u sed to interpret this result as normal/abnor mal. MPV (test code = 11.0 fL 9.5-12.9 12586-1) NRBC/100 WBC (test See_Comment [Automat ed message] code = 8539732871) The syste m which generated this result transmitted ref erence range: 0.0 - 10 .0 /100 WBCs. The refer ence range was not u sed to interpret this result as normal/abnor mal. NRBC x10^3 (test <0.01 See_Comment [Automated message] code = 2766475117) The syste m which generated this result transmitted ref erence range: 10*3/?L. The reference range was not used to interpr et this result as normal/abnormal . GRAN MAT (NEUT) % 44.2 % (test code = 770-8) IMM GRAN % (test 0.20 % code = 1542992489) LYMPH % (test code 41.6 % = 736-9) MONO % (test code 10.7 % = 5905-5) EOS % (test code = 2.9 % 713-8) BASO % (test code 0.4 % = 706-2) GRAN MAT 2.27 10*3/uL 1.88-7.09 x10^3(ANC) (test code = 4658116881) IMM GRAN x10^3 <0.03 0-0.06 (test code = 4904387373) LYMPH x10^3 (test 2.14 10*3/uL 1.32-3.29 code = 731-0) MONO x10^3 (test 0.55 10*3/uL 0.33-0.92 code = 742-7) EOS x10^3 (test 0.15 10*3/uL 0.03-0.39 code = 711-2) BASO x10^3 (test <0.03 0.01-0.07 code = 704-7) [facility] CenterCLOSTRIDIUM DIFFICILE [id number] 07:05:00 Test Item Value Reference Range Interpretation Comments Clostridioides (Clostridium) Negative Negative difficile (test code = 56755-0) Lab Interpretation (test code = Normal 10952-9) [facility] CenterMagnesium [id number] 01:19:00 Test Item Value Reference Range Interpretation Comments MAGNESIUM (test code = 5061499709) 2.0 mg/dL 1.7-2.4 Lab Interpretation (test code = Normal 75031-2) [facility] CenterLactic Acid Whole [id number] 22:28:00 Test Item Value Reference Range Interpretation Comments LACTIC ACID (test code = 1.61 mmol/L 0.5-2.2 6422007530) Lab Interpretation (test code = Normal 66172-2) [facility] CenterXR CHEST 1 VW [id number] 20:39:55 No acute cardiopulmonary disease. Disclaimer: Generally, the findings on chest imaging in COVID-19 are notspecific, and overlap with other infections, including influenza, H1N1,SARS and MERS.Accordingto the Centers for Disease Control (CDC) and the [employer], viral testing remainsthe only specific method of diagnosiseven if CXR or CT findings are suggestive of COVID-19. Preliminary Report Dictated by Resident: Abundio Gandara MD., have reviewed this study and agree with theabove report.PROCEDURE: CHEST XRAY , CLINICAL INDICATION: pneumonia COMPARISON: 09/12/2018 Technique: Single AP view of the chest. FINDINGS: Lungs: The lungs are well-expanded without focalconsolidation. Calcifiedgranulomas are redemonstrated in the left lower lung. Pleura: No pleural effusion or pneumothorax is seen. The heart is normal insize. No acute bony abnormality. Remote left clavicular fracture with residualdeformity. [facility], Radiant Results Inft User - 01/21/2020 3:40 PM CDTPROCEDURE: CHEST XRAY , CLINICAL INDICATION: pneumonia COMPARISON: 09/12/2018Technique: Single AP view of the chest.FINDINGS:Lungs: The lungs are well-expanded without focal consolidation. Calcifiedgranulomas are redemonstrated in the left lower lung.Pleura: No pleural effusion or pneumothorax is seen. The heart is normal insize.No acute bony abnormality. Remote left clavicular fracture with residualdeformity.IMPRESSION No acute cardiopulmonary disease. Disclaimer: Generally, the findings on chest imagingin COVID-19 are notspecific, and overlap with other infections, including influenza, H1N1,SARS and MERS.According to the Centers for Disease Control (CDC) and the [employer], viral testing remains the only specific method of diagnosiseven if CXR or CT findings are suggestive of COVID-19. Preliminary Report Dictated by Resident: Abundio Stephensonkowski, MD., have reviewed thisstudy and agree with theabove report.[facility] CenterCT ABD[facility]EN PEL[facility] W [id number] 18:40:47 1. ?No acute abdominopelvic abnormality. 2. ?Postsurgical changes of prior partial/sleeve gastrectomy. Preliminary Report Dictated by Resident: Rajan Ying . I, India Moore MD., have reviewedthis study and agree with the abovereport.EXAM: CT ABDOMEN AND PELVIS WITH CONTRAST HISTORY: Abd distension Abd infection (incl peritonitis) COMPARISON: 09/12/2018 CT abdomen pelvis TECHNIQUE AND FINDINGS: Contiguous axial imaging from the level of the lungbases through the pubic symphysis was performed after the uncomplicatedadministration of 120 cc of intravenous Omnipaque contrast. Coronal andsagittal reconstructions were obtained. ?Auto mA and/or iterativereconstruction were used to reduce radiation dose. FINDINGS: LOWER THORAX: The lungs bases are clear. Unchanged left lower lobegranuloma. No cardiomegaly. LIVER: Focal fatty infiltration is seen along the falciform ligament. Nosuspicious focalhepatic lesions. ?Normal contour. GALLBLADDER AND BILIARY TREE: Prior cholecystectomy. Mildly dilated commonduct approximately with mild central intrahepatic biliary ductaldilatation. Smooth tapering of the common duct distally. Pattern may beseen in the setting of prior cholecystectomy due to reservoir phenomenon.Fluid-filled structure contiguous with cholecystectomy clips may representa dilated cystic duct with or without a portion of a remnant gallbladder.No associated inflammatory changes. Appearance is similar to comparisonstudy. PANCREAS: No ductal dilation or masses. SPLEEN: Borderline enlarged at 13.8 cm. ADRENAL GLANDS: No adrenal nodules. KIDNEYS: No hydronephrosis, stones, or masses. PERITONEUM AND RETROPERITONEUM: No free air or fluid. LYMPH NODES: No lymphadenopathy. VESSELS: Minimalscattered atherosclerotic calcifications. The commonhepatic artery and splenic artery arises separately from the aorta. GI TRACT: Prior partial/spleeve gastrectomy. No dilation or wallthickening. Normal appendix. PELVIS/BLADDER: An IUD is present and grossly normal in position. Bladderis unremarkable.BONES AND SOFT TISSUES: No suspicious lytic or sclerotic bony lesions.L5-S1 degenerative disc disease. [facility], Radiant Results Inft User - 01/21/2020 1:41 PM CDTEXAM: CT ABDOMEN AND PELVIS WITH CONTRASTHISTORY: Abd distension Abd infection (incl peritonitis) COMPARISON: 09/12/2018 CT abdomen pelvisTECHNIQUE AND FINDINGS: Contiguous axial imaging from the level of the lungbases through the pubic symphysis was performed after the uncomplicatedadministration of 120 cc of intravenous Omnipaque contrast. Coronal andsagittal reconstructions were obtained. Auto mA and/or iterativereconstruction were used to reduce radiation dose.FINDINGS:LOWER THORAX: The lungs bases are clear. Unchanged left lower lobegranuloma. No cardiomegaly.LIVER: Focal fatty infiltration is seen along the falciform ligament. Nosuspicious focal hepatic lesions. Normal contour.GALLBLADDER AND BILIARY TREE: Prior cholecystectomy. Mildly dilated commonduct approximately with mild central intrahepatic biliary ductaldilatation. Smooth tapering of the common duct distally. Pattern may beseen in the setting of prior cholecystectomy due toreservoir phenomenon.Fluid- filled structure contiguous with cholecystectomy clips may representa dilated cystic duct with or without a portion of a remnant gallbladder.No associated inflammatory changes. Appearance is similar to comparisonstudy.PANCREAS: No ductal dilation or masses.SPLEEN: Borderlineenlarged at 13.8 cm.ADRENAL GLANDS: No adrenal nodules.KIDNEYS: No hydronephrosis, stones, or masses.PERITONEUM AND RETROPERITONEUM: No free air or fluid.LYMPH NODES: No lymphadenopathy.VESSELS: Minimal scattered atherosclerotic calcifications. The commonhepatic artery and splenic artery arises separately from the aorta.GI TRACT: Prior partial/spleeve gastrectomy. No dilation or wallthickening. Normal appendix.PELVIS/BLADDER: An IUD is present and grossly normal in position. Bladderis unremarkable.BONES AND SOFT TISSUES: No suspicious lytic or sclerotic bony lesions.L5-S1 degenerative disc disease.IMPRESSION1. No acute abdominopelvic abnormality.2. Postsurgical changes of prior partial/sleeve gastrectomy.Preliminary Report Dictated by Resident: Rajan Ying.[place] MD., have reviewed this study and agree with the abovereport.[facility] 15:44:00 Test Item Value Reference Range Interpretation Comments APPEARANCE (test code = Hazy Clear A 0454866857) COLOR (test code = Yellow Yellow 0552696418) PH (test code = 4.8-8.0 1066610137) SP GRAVITY (test code = 1.003-1.030 8256476137) GLU U QUAL (test code = Normal Normal 3026417307) BLOOD (test code = 1+ Negative A 1192289170) KETONES (test code = Negative Negative 2976497009) PROTEIN (test code = Negative Negative 2887-8) UROBILIN (test code = Normal Normal 8687827104) BILIRUBIN (test code = Negative Negative 9975387750) NITRITE (test code = Negative Negative 3658154598) LEUK PEGGY (test code = Negative Negative 2432375903) RBC/HPF (test code = See_Comment [Autom ated message] 7710490579) The system [employer] generated this result transmitted ref erence range: 0 - 3 HP F. The reference range was not used to int erpret this result as normal/abnormal . WBC/HPF (test code = See_Comment [Autom ated message] 6441289970) The system [employer] generated this result transmitted ref erence range: 0 - 5 HP F. The reference range was not used to int erpret this result as normal/abnormal . BACTERIA (test code = Many Negative A 8349486077) MUCOUS (test code = Moderate Negative LPF A 4197587401) SQ EPITH (test code = HPF 7281024753) HYAL CAST (test code = See_Comment H [Aut omated message] 1489602145) The system [employer] generated this result transmitted ref erence range: <=2 LPF. The reference range was not used to int erpret this result as normal/abnormal . Lab Interpretation (test Abnormal code = 09833-9) [facility] (NA, K, CL, CO2, GLUCOSE, BUN, CREATININE, CA)2020-01-21 15:40:00 Test Item Value Reference Range Interpretation Comments NA (test code = 138 mmol/L 135-145 6777193733) K (test code = 3.9 mmol/L 3.5-5 7217718668) CL (test code = 105 mmol/L 98-108 4550059794) CO2 TOTAL (test code = 24 mmol/L 23-31 7570319598) AGAP (test code = 2-16 7381436065) BUN (test code = 9 mg/dL 7-23 5174578182) GLUCOSE (test code = 88 mg/dL 70-110 1962410045) CREATININE (test code 0.75 mg/dL 0.5-1.04 = 2429923180) CALCIUM (test code = 9.0 mg/dL 8.6-10.6 4668121511) eGFR Calculation mL/min/1.73m2 (Non-) (test code = 5897517409) eGFR Calculation mL/min/1.73m2 () (test code = 2401855167) ELLIS (test code = ELLIS) Association of Glomerular Filtration Rate (GFR) and Staging of Kidney Disease* + -+ + ---+| GFR (mL/min/1.73 m2) ?| With Kidney Damage ?| ?Without Kidney Damage+ -------+ ------+ ---------+| ?>90 ?| ?Stage one ?| ? Normal ?+ --+ -+ ----+| ?60-89 ?| ?Stage two ?| ? Decreased GFR ? + -+ + ---+| ?30-59 ?| ?Stage three ?| ? Stage three ? + -+ + ---+| ?15-29 ?| ?Stage four ? | ? Stage four ?+ --+ -+ ----+| ?<15 (or dialysis) ? ?| ?Stage five ? | ? Stage five ?+ --+ -+ ----+ *Each stage assumes the associated GFR level has been in effect for at least three months. ?Stages 1 to 5, with or without kidney disease, indicate chronic kidney disease. Notes: Determination of stages one and two (with eGFR >59mL/min/1.73 m2) requires estimation of kidney damage for at least three months as defined by structural or functional abnormalities of the kidney, manifested by either:Pathological abnormalities or Markers of kidney damage (including abnormalities in the composition of the blood or urine or abnormalities in imaging tests). [facility] (ALB, T.PRO, BILI T, BU/BC, ALT, AST, ALK PHOS)2020-01-21 15:40:00 Test Item Value Reference Range Interpretation Comments TOTAL BILI (test code = 8724631515) 0.5 mg/dL 0.1-1.1 BILI UNCON (test code = 2057750817) 0.5 mg/dL 0.1-1.1 BILI CONJ (test code = 4312911487) 0.0 mg/dL 0-0.3 T PROTEIN (test code = 4294974691) 7.1 g/dL 6.3-8.2 ALBUMIN (test code = 8972684380) 4.0 g/dL 3.5-5 ALK PHOS (test code = 7865474658) 57 U/L 34-122 ALTv (test code = 1742-6) 39 U/L 5-35 H AST(SGOT) (test code = 1733457013) 56 U/L 13-40 H Lab Interpretation (test code = Abnormal 09638-7) [facility] [id number] 15:40:00 Test Item Value Reference Range Interpretation Comments LIPASE (test code = 2111691369) 26 U/L 0-220 Lab Interpretation (test code = Normal 75913-1) [facility] NOW RAPID TESTING)2020-01-21 15:38:00 Test Item Value Reference Range Interpretation Comments SARS-CoV-2 Rapid ID NOW Not Detected Not Detected (test code = 28766-4) ELILS (test code = ELLIS) ID NOW COVID-19 Assay is an isothermal nucleic acid amplification test intended for the qualitative detection of nucleic acid from SARS-CoV-2 viral RNA in nasopharyngeal ([employer]) specimens. It is used under Emergency Use Authorization (EUA) by FDA. The limit of detection (LOD) of the assay is 125 Genome Equivalents/mL. A positive result is indicative of the presence of SARS-CoV-2 RNA. ?Clinical correlation with patient history and other diagnostic information is necessary to determine patient infection status. A negative (Not Detected) result does not preclude SARS-CoV-2 infection. In patients with clinical symptoms and other tests that are consistent with SARS-CoV-2 infection, negative results should be treated as presumptive negative and a new specimen should be tested with alternative PCR molecular test. Invalid: Please collect a new specimen for repeat patient testing if clinically indicated. Lab Interpretation Normal (test code = 20241-8) [facility] WITH [id number] 15:21:00 Test Item Value Reference Range Interpretation Comments WBC (test code = See_Comment [Automated message] 6690-2) The system [employer] generated this result transmitted ref erence range: 4.30 - 1 1.10 10*3/?L. The re ference range was not u sed to interpret this result as normal/abnor mal. RBC (test code = See_Comment [Automated message] 689-8) The system [employer] generated this result transmitted ref erence range: 3.93 - 5 .25 10*6/?L. The re ference range was not u sed to interpret this result as normal/abnor mal. HGB (test code = 14.1 g/dL 11.6-15 718-7) HCT (test code = 42.0 % 35.7-45.2 4544-3) MCV (test code = 89.9 fL 80.6-95.5 787-2) MCH (test code = 30.2 pg 25.9-32.8 785-6) MCHC (test code = 33.6 g/dL 31.6-35.1 786-4) RDW-SD (test code 42.9 fL 39-49.9 = 58877-8) RDW-CV (test code 13.1 % 12-15.5 = 788-0) PLT (test code = See_Comment [Automated message] 537-3) The system [employer] generated this result transmitted ref erence range: 166 - 35 8 10*3/?L. The re ference range was not u sed to interpret this result as normal/abnor mal. MPV (test code = 11.1 fL 9.5-12.9 19549-2) NRBC/100 WBC (test See_Comment [Automat ed message] code = 0519038777) The syste m which generated this result transmitted ref erence range: 0.0 - 10 .0 /100 WBCs. The refer ence range was not u sed to interpret this result as normal/abnor mal. NRBC x10^3 (test <0.01 See_Comment [Automated message] code = 2192547153) The syste m which generated this result transmitted ref erence range: 10*3/?L. The reference range was not used to interpr et this result as normal/abnormal . GRAN MAT (NEUT) % 52.1 % (test code = 770-8) IMM GRAN % (test 0.40 % code = 1755377183) LYMPH % (test code 34.4 % = 736-9) MONO % (test code 9.1 % = 5905-5) EOS % (test code = 3.3 % 713-8) BASO % (test code 0.7 % = 706-2) GRAN MAT 2.80 10*3/uL 1.88-7.09 x10^3(ANC) (test code = 4158125085) IMM GRAN x10^3 <0.03 0-0.06 (test code = 6599745230) LYMPH x10^3 (test 1.85 10*3/uL 1.32-3.29 code = 731-0) MONO x10^3 (test 0.49 10*3/uL 0.33-0.92 code = 742-7) EOS x10^3 (test 0.18 10*3/uL 0.03-0.39 code = 711-2) BASO x10^3 (test 0.04 10*3/uL 0.01-0.07 code = 704-7) [facility] [id number] 15:11:00 Test Item Value Reference Range Interpretation Comments POCT PREG (test code = 1605) negative On board controls acceptable with present C Line (test code = 3574) POCT PREG LOT # (test code = 3575) [id number] POCT PREG TEST DATE (test 2021-04-30 code = 3576) Lab Interpretation (test code = Normal 58549-8) [facility]"
[2023-03-18] MEDS ORDERED: KETOROLAC 30 MG/ML INJ ONE (13:07)
[2023-03-18] MEDS ORDERED: NA CHLORIDE 0.9% 1,000 ML ONE (13:07)
[2023-03-18] MEDS ORDERED: METOCLOPRAMIDE 10 MG/2mL INJ ONE (13:07)
[2023-03-18] MEDS ORDERED: DIPHENHYDRAMINE 50 MG/ML VIAL ONE (13:07)
[2023-03-18 13:17] LABS: Hematocrit 50.8 % (36.0-45.0); Lymphocytes % 22.1 % (15.3-44.8); MCV 86.1 fL (80-100); MPV 8.3 fL (7.6-11.3); Platelets 126 thou/uL (152-406)
[2023-03-18 13:19] LABS: Specific Gravity 1.011 (1.005-1.030)
[2023-03-18 13:21] LABS: Specific Gravity 1.011 (1.005-1.030); Urine Bacteria <20 /HPF (<20); Urine Bilirubin NEGATIVE (Negative); Urine Blood Negative (Negative); Urine Clarity Extremely Turbid (Clear); Urine Color Light-Yellow (Yellow); Urine Glucose NEGATIVE (Negative); Urine Mucus Slight /HPF (None Seen); Urine Protein NEGATIVE (Negative); Urine RBC <5 /HPF (None Seen); Urine Urobilinogen Normal (Normal); Urine pH 6.5 (5.0-7.0)
[2023-03-18 13:35] LABS: Albumin 3.1 g/dL (3.4-5.0); Bilirubin Total 0.3 mg/dL (0.2-1.0); Potassium 3.9 mEq/L (3.5-5.1); Protein, Total 6.1 g/dL (6.4-8.2)
[2023-03-18 14:02] LABS: Platelet Estimate DECR
[2023-03-18 14:03] LABS: Blood Morphology Comment NOT SEEN (NOT SEEN)
--- NOTE | 2023-03-18 14:09 | RAD REPORT ---
EXAM DESCRIPTION: CT - Head Brain Wo Cont - 03/18/2023 1:12 pm CLINICAL HISTORY: HEADACHE COMPARISON: No comparisons TECHNIQUE: Noncontrast head CT images were obtained without IV contrast. Multiplanar reformats were generated and reviewed. All CT scans are performed using dose optimization technique as appropriate and may include automated exposure control or mA/KV adjustment according to patient size. FINDINGS: No intracranial hemorrhage, mass, or edema. Midline structures are unremarkable. Normal ventricular caliber for age. Jimenez-white matter differentiation is preserved, without evidence of acute infarct. No abnormal extra- axial fluid collections. Mastoid air cells and visualized portions of the paranasal sinuses are clear. No acute bony findings. IMPRESSION: No evidence of an acute intracranial process.
--- NOTE | 2023-03-18 14:13 | EDPHYS ---
Physician Documentation [facility] Name: Stacey Frederick Age: 42 yrs Sex: Female : 1980 Arrival Date: 03/18/2023 Time: 11:38 Bed 13 Private MD: ED Physician Issac Gonzales HPI: 03/18 12:59 This 42 yrs old Female presents to ER via Ambulatory with complaints of urbano Headache, Nausea, Body aches. 12:59 The patient complains of pain to the top of head, forehead, left frontal area, left urbano side of the back of head, left occipital area, left base of the skull, right frontal area, right side of the back of head, right occipital area and right base of the skull. The patient describes the headache as aching, constant. CARE DIRECTOR: 15:10 LMP N/A - control method ml4 Historical: - Allergies: 12:02 Bactrim; cm10 12:02 Morphine; cm10 - PMHx: 12:02 Hypertension; Anxiety; cm10 - Immunization history:: Adult Immunizations. - Social history:: Smoking status: Reported history of juuling and/or vaping. ROS: 13:00 Constitutional: Negative for fever, chills, and weight loss, Eyes: Negative for injury, urbano pain, redness, and discharge, ENT: Negative for injury, pain, and discharge, Neck: Negative for injury, pain, and swelling, Cardiovascular: Negative for chest pain, palpitations, and edema, Abdomen/GI: Negative for abdominal pain, nausea, vomiting, diarrhea, and constipation, Back: Negative for injury and pain, : Negative for injury, bleeding, discharge, and swelling, MS/Extremity: Negative for injury and deformity, Skin: Negative for injury, rash, and discoloration, Psych: Negative for depression, anxiety, suicide ideation, homicidal ideation, and hallucinations, Allergy/Immunology: Negative for hives, rash, and allergies, Endocrine: Negative for neck swelling, polydipsia, polyuria, polyphagia, and marked weight changes, Hematologic/Lymphatic: Negative for swollen nodes, abnormal bleeding, and unusual bruising. 13:00 Respiratory: Positive for cough. 13:00 Neuro: Positive for headache. Exam: 13:00 Constitutional: This is a well developed, well nourished patient who is awake, alert, urbano and in no acute distress. Head/Face: Normocephalic, atraumatic. Eyes: Pupils equal round and reactive to light, extra-ocular motions intact. Lids and lashes normal. Conjunctiva and sclera are non-icteric and not injected. Cornea within normal limits. Periorbital areas with no swelling, redness, or edema. ENT: Nares patent. No nasal discharge, no septal abnormalities noted. Tympanic membranes are normal and external auditory canals are clear. Oropharynx with no redness, swelling, or masses, exudates, or evidence of obstruction, uvula midline. Mucous membranes moist. Neck: Trachea midline, no thyromegaly or masses palpated, and no cervical lymphadenopathy. Supple, full range of motion without nuchal rigidity, or vertebral point tenderness. No Meningismus. Chest/axilla: Normal chest wall appearance and motion. Nontender with no deformity. No lesions are appreciated. Cardiovascular: Regular rate and rhythm with a normal S1 and S2. No gallops, murmurs, or rubs. Normal PMI, no JVD. No pulse deficits. Respiratory: Lungs have equal breath sounds bilaterally, clear to auscultation and percussion. No rales, rhonchi or wheezes noted. No increased work of breathing, no retractions or nasal flaring. Abdomen/GI: Soft, non-tender, with normal bowel sounds. No distension or tympany. No guarding or rebound. No evidence of tenderness throughout. Back: No spinal tenderness. No costovertebral tenderness. Full range of motion. Pelvic Exam: Normal external genitalia. Speculum exam with closed cervical os, no discharge or bleeding noted. Bimanual exam with normal adnexa, no adnexal or cervical motion tenderness. Normal uterus. Skin: Warm, dry with normal turgor. Normal color with no rashes, no lesions, and no evidence of cellulitis. MS/ Extremity: Pulses equal, no cyanosis. Neurovascular intact. Full, normal range of motion. Neuro: Awake and alert, GCS 15, oriented to person, place, time, and situation. Cranial nerves II-XII grossly intact. Motor strength 5/5 in all extremities. Sensory grossly intact. Cerebellar exam normal. Normal gait. Psych: Awake, alert, with orientation to person, place and time. Behavior, mood, and affect are within normal limits. 13:00 Neck: External neck: is normal, no acute changes, C-spine: no acute changes, Thyroid: appears normal, Trachea: is midline with no obvious abnormalities, no acute changes, ROM/movement: is normal, is supple, without pain, no range of motions limitations, no meningismus, no nuchal rigidity, negative Brudzinski's sign, negative Kernig's sign, no acute changes, Lymph nodes: no appreciated lymphadenopathy. Vital Signs: 11:57 BP 143 / 87; Pulse 76; Resp 16; Temp 98.4; Pulse Ox 96% ; Weight 95.25 kg; Height 5 ft. cm10 7 in. ; 15:10 BP 144 / 77; Pulse 89; Resp 18; Temp 98(T); Pulse Ox 100% on R/A; Pain 0/10; ml4 11:57 Body Mass Index 32.89 (95.25 kg, 170.18 cm) cm10 15:10 Pain Scale: Adult ml4 Anita Coma Score: 13:02 Eye Response: spontaneous(4). Motor Response: obeys commands(6). Verbal Response: urbano oriented(5). Total: 15. 15:10 Eye Response: spontaneous(4). Motor Response: obeys commands(6). Verbal Response: ml4 oriented(5). Total: 15. Procedures: 13:02 Peripheral line: by aseptic technique a peripheral line was placed in the right urbano external jugular vein. MDM: 11:41 Patient medically screened. [facility] 13:02 Differential diagnosis: cervical epidural bleed, cluster headache, hypoglycemia, urbano hyponatremia, migraine, sinusitis, temporal arteritis, tension headache, trigeminal neuralgia, vasomotor headache. Differential Diagnosis altered mental status, sepsis. Data reviewed: vital signs, nurses notes, lab test result(s), radiologic studies, CT scan. Consideration of Admission/Observation Escalation of care including admission/observation considered. Independent interpretation of the following test(s) in the Emergency Department X-Ray: My interpretation is CXR. Test considered but Not performed: MRI: NO MRI BRAIN. Care significantly affected by the following chronic conditions: Hypertension, ANXIETY. Counseling: I had a detailed discussion with the patient and/or guardian regarding the historical points, exam findings, and any diagnostic results supporting the discharge/admit diagnosis, radiology results, the need for outpatient follow up, for definitive care, a family practitioner, a neurologist. 03/18 12:49 Order name: CBC with Manual Differential; Complete Time: 14:10 [facility] 03/18 12:49 Order name: Comprehensive Metabolic Panel; Complete Time: 13:36 [facility] 03/18 12:49 Order name: Urinalysis w/ reflexes; Complete Time: 13:31 [facility] 03/18 12:49 Order name: Flu; Complete Time: 14:10 [facility] 03/18 12:49 Order name: COVID-19 SARS RT PCR; Complete Time: 14:35 [facility] 03/18 12:49 Order name: PREGU; Complete Time: 13:31 [facility] 03/18 12:49 Order name: Chest Pa And Lat (2 Views) XRAY [facility] 03/18 12:49 Order name: CT Head Brain wo Cont; Complete Time: 14:10 [facility] 03/18 12:49 Order name: Oxygen: 2 LITERS; Complete Time: 13:28 [facility] Administered Medications: 13:09 Drug: diphenhydrAMINE IVP 50 mg Route: IVP; Site: right jugular; ml4 13:10 Drug: NS 0.9% IV 1000 ml Route: IV; Rate: 1 bolus; Site: right jugular; ml4 13:10 Drug: metoCLOPramide IVP 10 mg Route: IVP; Site: right jugular; ml4 13:10 Drug: Ketorolac IVP 30 mg Route: IVP; Site: right jugular; ml4 15:09 Drug: Rocephin IV 1 grams Route: IV; Rate: per protocol; Site: right jugular; ml4 Disposition Summary: 03/18/23 14:12 Discharge Ordered Location: Home urbano Problem: new urbano Symptoms: have improved urbano Condition: Stable urbano Diagnosis - Headache urbano - Weakness urbano - Nausea urbano - UTI/ Urinary tract infection, site not specified urbano Followup: urbano - With: Private Physician - When: 2 - 3 days - Reason: Recheck today's complaints, Continuance of care, Re-evaluation by your physician Followup: urbano - With: - When: 2 - 3 days - Reason: Recheck today's complaints, Continuance of care, Re-evaluation by your physician Discharge Instructions: - Discharge Summary Sheet urbano - Migraine Headache urbano - Nausea, Adult urbano - Urinary Tract Infection, Adult urbano - Weakness urbano - Migraine Headache, [id number]-[id number] urbano - Weakness, Tyal-[id number]-Iupv urbano Forms: - Medication Reconciliation Form urbano - Thank You Letter urbano - Antibiotic Education urbano - Prescription Opioid Use urbano - Patient Portal Instructions urbano - Leadership Thank You Letter urbano Prescriptions: - Fioricet with Codeine 41-141-82-30 mg Oral capsule - take 2 capsule by ORAL route every 4 hours as needed for pain; do not exceed 6 urbano caps per day; 15 capsule; Refills: 0, Product Selection Permitted - ondansetron 4 mg Oral Tablet,disintegrating - take 1 tablet by ORAL route 3 times per day for 5 days; 20 tablet; Refills: 0, [facility] Product Selection Permitted - Macrobid 100 mg Oral Capsule - take 1 capsule by ORAL route every 12 hours for 7 days; 14 capsule; Refills: 0, [facility] Product Selection Permitted Signatures: Dispatcher [employer] Issac Love MD MD cha Martinez, Clarissa, RN RN cm10 ANA BurgerIII, Villa RN RN ml4
--- NOTE | 2023-03-18 14:13 | ER ---
Nurse's Notes [facility] Name: Stacey Frederick Age: 42 yrs Sex: Female : 1980 Arrival Date: 03/18/2023 Time: 11:38 Bed 13 Private MD: Diagnosis: Headache;Weakness;Nausea;UTI/ Urinary tract infection, site not specified Presentation: 03/18 11:57 Chief complaint: Patient states: body aches and "I feel like I got hit by a truck" cm10 onset Tuesday. Pt states that she was seen at urgent care in [place] on Tuesday and was tested for flu, strep and covid and were all negative. Pt states that she was placed on Augmentin Tuesday. Pt states that she went back today due to having a headache and nausea, was retested for flu and covid and was negative again. Pt states she was told to come in today due to having a stiff neck. Coronavirus screen: Vaccine status: Patient reports being unvaccinated. Client denies travel out of the [place] in the last 14 days. Ebola Screen: Patient denies travel to an Ebola-affected area in the 21 days before illness onset. No symptoms or risks identified at this time. Initial Sepsis Screen: Does the patient meet any 2 criteria? No. Patient's initial sepsis screen is negative. Does the patient have a suspected source of infection? No. Patient's initial sepsis screen is negative. Risk Assessment: Do you want to hurt yourself or someone else? Patient reports no desire to harm self or others. Onset of symptoms was March 15, 2023. 11:57 Method Of Arrival: Ambulatory cm10 11:57 Acuity: ANDREAS 3 cm10 Triage Assessment: 13:26 General: Appears in no apparent distress. uncomfortable, Behavior is calm, cooperative, ml4 appropriate for age. Pain: Complains of pain in head Pain does not radiate. Pain currently is 9 out of 10 on a pain scale. Quality of pain is described as dull, pressure, Pain began gradually, Also complains of photophobia, stiffness in neck; body aches. Neuro: Renteria Agitation-Sedation Scale (RASS): 0 - Alert and Calm Level of Consciousness is awake, alert, obeys commands, Oriented to person, place, time, situation, Appropriate for age Manager Support are equal bilaterally Moves all extremities. Gait is steady, Speech is normal, Facial symmetry appears normal, Pupils are PERRLA, Intact Reports photophobia Denies weakness blurred vision difficulty swallowing, numbness. Cardiovascular: No deficits noted. Respiratory: No deficits noted. 13:28 Headache History: The patient has had previous headaches and this one is different than ml4 previous episodes, and this one is more severe than previous episodes. HIV COUNSELOR: 15:10 LMP N/A - control method ml4 Historical: - Allergies: 12:02 Bactrim; cm10 12:02 Morphine; cm10 - PMHx: 12:02 Hypertension; Anxiety; cm10 - Immunization history:: Adult Immunizations. - Social history:: Smoking status: Reported history of juuling and/or vaping. Screenin:24 [facility] ED Fall Risk Assessment (Adult) History of falling in the last 3 months, ml4 including since admission No falls in past 3 months (0 pts) Confusion or Disorientation No (0 pts) Intoxicated or Sedated No (0 pts) Impaired Gait No (0 pts) Mobility Assist Device Used No (0 pt) Altered Elimination No (0 pt) Score/Fall Risk Level 0 - 2 = Low Risk. Abuse screen: Denies threats or abuse. Nutritional screening: No deficits noted. Tuberculosis screening: No symptoms or risk factors identified. Assessment: 15:10 General: Appears in no apparent distress. Behavior is calm, cooperative, appropriate ml4 for age. Pain: Denies pain. Neuro: No deficits noted. Vital Signs: 11:57 BP 143 / 87; Pulse 76; Resp 16; Temp 98.4; Pulse Ox 96% ; Weight 95.25 kg; Height 5 ft. cm10 7 in. ; 15:10 BP 144 / 77; Pulse 89; Resp 18; Temp 98(T); Pulse Ox 100% on R/A; Pain 0/10; ml4 11:57 Body Mass Index 32.89 (95.25 kg, 170.18 cm) cm10 15:10 Pain Scale: Adult ml4 Anita Coma Score: 13:02 Eye Response: spontaneous(4). Motor Response: obeys commands(6). Verbal Response: urbano oriented(5). Total: 15. 15:10 Eye Response: spontaneous(4). Motor Response: obeys commands(6). Verbal Response: ml4 oriented(5). Total: 15. ED Course: 11:41 Patient arrived in ED. ts1 11:41 Issac Gonzales MD is Attending Physician. urbano 11:48 ANA BurgerIII, Villa, ANA is Primary Nurse. ml4 12:02 Triage completed. cm10 12:02 Arm band placed on Patient placed in an exam room, on a stretcher. cm10 13:09 Urinalysis w/ reflexes Sent. ml4 13:09 Comprehensive Metabolic Panel Sent. ml4 13:09 CBC with Manual Differential Sent. ml4 13:13 CT Head Brain wo Cont In Process Unspecified. EDMS 13:20 Chest Pa And Lat (2 Views) XRAY In Process Unspecified. EDMS 13:24 No apparent distress. Awaiting lab results, Awaiting CT Scan. Patient moved to CT via ml4 wheelchair. 13:24 Patient has correct armband on for positive identification. Bed in low position. Call ml4 light in reach. Side rails up X2. Provided Education on: N/A. 13:24 No provider procedures requiring assistance completed. Inserted saline lock: 20 gauge ml4 in right EJ, using aseptic technique. Blood collected. By MD Christian. 14:12 Ritchie Camejo MD is Referral Physician. urbano 15:10 IV discontinued, intact, No redness/swelling at site. Pressure dressing applied. ml4 Administered Medications: 13:09 Drug: diphenhydrAMINE IVP 50 mg Route: IVP; Site: right jugular; ml4 13:10 Drug: NS 0.9% IV 1000 ml Route: IV; Rate: 1 bolus; Site: right jugular; ml4 13:10 Drug: metoCLOPramide IVP 10 mg Route: IVP; Site: right jugular; ml4 13:10 Drug: Ketorolac IVP 30 mg Route: IVP; Site: right jugular; ml4 15:09 Drug: Rocephin IV 1 grams Route: IV; Rate: per protocol; Site: right jugular; ml4 Medication: 13:28 VIS not applicable for this client. ml4 Outcome: 13:28 Condition: good ml4 14:12 Discharge ordered by . urbano 15:11 Discharged to home ambulatory. ml4 15:11 Discharge instructions given to patient, Instructed on discharge instructions, follow up and referral plans. Demonstrated understanding of instructions, follow-up care, medications, Prescriptions given X 3. 15:11 Patient left the ED. ml4 Signatures: Dispatcher [employer] EDMS Issac Gonzales MD MD cha Simpson, Tanya, PAS PAS ts1 Yoana Rios, RN RN cm10 ANA BurgerIII, ANA Driver RN ml4
[2023-03-18] MEDS ORDERED: CEFTRIAXONE 1000 MG/VIAL ONE (14:44)
--- NOTE | 2023-03-18 14:59 | RAD REPORT ---
EXAM DESCRIPTION: RAD - Chest Pa And Lat (2 Views) - 03/18/2023 1:31 pm CLINICAL HISTORY: COUGH COMPARISON: CHEST PA AND LAT 2 VIEW dated 09/05/2011; Abdomen Pelvis W Contrast dated 11/03/2020 TECHNIQUE: PA and lateral views of the chest were obtained. FINDINGS: The lungs are clear. Calcified medial 1.2 cm granuloma on the left is stable. Heart size i s normal and central vasculature is within normal limits. No pleural effusion or pneumothorax seen. N o acute bony finding noted. IMPRESSION: No acute cardiopulmonary process.
[2023-03-18 15:26] VITALS: BP 144/77; TEMP 98; O2SAT 100
== END 2023-03-18 15:11 | disposition home or self-care (01) ==
LOC: ER 11:38
DX: N39.0 Urinary tract infection, site not specified (principal); R53.1 Weakness; R11.0 Nausea; Z20.822 Contact with and (suspected) exposure to COVID-19; I10 Essential (primary) hypertension; Z88.1 Allergy status to other antibiotic agents; Z88.5 Allergy status to narcotic agent
CPT/HCPCS: 85025; 81001; 36415; 81025; 80053; 87635; 87804 ×2; 70450; 71046; 96375; 96374; 99285; J2765; J1200; J7030; J0696